=== PATIENT | female | born 1960 | race Caucasian/White ===

== ENCOUNTER → 2023-02-23 10:59 | Outpatient (BNVA) | payer MEDICARE, MEDICAID, SELFPAY | PROVIDERS: PCP Family Medicine; Visit Provider Internal Medicine Rheumatology | DX: M06.00 Rheumatoid arthritis without rheumatoid factor, unspecified site (principal); M54.50 Low back pain, unspecified; J70.4 Drug-induced interstitial lung disorders, unspecified; T45.1X5D Adverse effect of antineoplastic and immunosuppressive drugs, subsequent encounter; Z79.60 Long term (current) use of unspecified immunomodulators and immunosuppressants; Z11.59 Encounter for screening for other viral diseases; Z72.89 Other problems related to lifestyle | CPT/HCPCS: 36415; 72100; 80053; 85025; 85652; 86140; 86481; 86704; 86706; 86709; 86803; 87340; 99202 ==

== ENCOUNTER 2023-02-23 12:05 | Outpatient (REF) | payer MEDICARE, MEDICAID, SELFPAY ==
--- NOTE | ~2023-02-23 | XR_ITS ---
EXAMINATION: XR LUMBOSACRAL SPINE CLINICAL INFORMATION: Low back pain. COMPARISON: None available. TECHNIQUE: 3 views of the lumbosacral spine. FINDINGS: There are 5 non-rib bearing lumbar vertebrae. There is mild grade 1 spondylolisthesis L4-L5. There is facet arthropathy present L4-S1 bilaterally. Pedicles appear intact. There is some narrowing of the L5-S1 disc space. No acute fracture identified. There is a calcific density seen within the posterior soft tissues of the lower abdomen. Patient is status post bilateral hip arthroplasty. No evidence of fusion or widening of the sacroiliac joints. XR/XR lumbar spine 2-3V IMPRESSION: Degenerative disc disease L5-S1 with mild grade 1 spondylolisthesis L4-L5 and facet arthropathy L4-S1.
[2023-02-23 13:27] LABS: MANUAL DIFF FLAG NO
[2023-02-23 13:30] LABS: Basophils Absolute Auto 0.1 X10*3/uL (0.0-0.2); Basophils Percent Auto 1.4 % (0-2); Eosinophils Absolute Auto 0.6 X10*3/uL (0.0-0.4); Eosinophils Percent Auto 6.2 % (0-4); Hematocrit 39.7 % (37.0-47.0); Imm Gran Abs Auto 0.07 X10*3/uL (0.00-0.03); Imm Gran Pct Auto 0.7 % (0.0-0.4); Lymphocytes Absolute Auto 3.9 X10*3/uL (1.2-4.9); Lymphocytes Percent Auto 39.5 % (20-40); Mean Corpuscular HGB Conc 32.7 g/dl (31.0-35.0); Mean Corpuscular Hemoglobin 28.5 pg (27.0-33.0); Mean Corpuscular Volume 87.1 fL (80.0-98.0); Mean Platelet Volume 10.1 fL (9.4-12.3); Neutrophils Absolute Auto 4.2 x10*3/uL (2.0-8.3); Neutrophils Percent Auto 42.2 % (45-73); Platelet Count 250 X10*3/uL (160-400); Red Blood Count 4.56 X10*6/uL (4.20-5.50); Red Cell Distribution Width 15.2 % (11.0-16.0)
[2023-02-23 14:20] LABS: Erythrocyte Sedimentation Rate 48 MM/HR (0-20)
[2023-02-23 14:22] LABS: Alanine Aminotransferase 11 U/L (0-31); Albumin Level 3.8 g/dL (3.5-5.0); Alkaline Phosphatase 100 U/L (39-117); Anion Gap 15 (12-20); Aspartate Amino Transferase 13 U/L (5-31); Bilirubin Total 0.3 mg/dL (0.0-1.0); Blood Urea Nitrogen 24 mg/dL (9-16); C Reactive Protein 1.99 mg/dL (< or = 0.50); Calcium 9.5 mg/dL (8.4-10.2); Carbon Dioxide 25 mmol/L (22-29); Chloride 104 mmol/L (96-108); Estimated Glomerular Filt Rate 55; Glucose Random 86 mg/dL (60-115); Potassium 4.8 mmol/L (3.3-5.1); Sodium 139 mmol/L (135-145); Total Protein 6.7 g/dL (6.5-8.0)
[2023-02-24 04:08] LABS: HBS Num1 0.33 mIU/mL (0-7.99); HBsAGNum1 0.27 S/CO (0.00-0.99); Hepatitis A Antibody IgM 0.19 Index (0-0.79); Hepatitis B Core Antibody Nonreactive (Nonreactive); Hepatitis B Surface Antigen Negative (Negative); ~HepC Num1 0.14 S/CO (0.00-0.79); ~Hepatitis A Antibody IgM Nonreactive (Nonreactive); ~Hepatitis B Surface Antibody NONREACTIVE (Nonreactive); ~Hepatitis C Antibody Nonreactive (Nonreactive)
[2023-02-25 20:43] LABS: TS Negative Control Passed; TS Panel A 0; TS Panel B 0; TS Positive Control Passed; TSpotTB Negative (Negative)
== END 2023-02-23 12:06 | disposition home or self-care (01) ==
LOC: HO.10HDL 12:05
PROVIDERS: PCP Family Medicine; Visit Provider Internal Medicine Rheumatology
DX: Z13.89 Encounter for screening for other disorder (principal)
CPT/HCPCS: 36415; 72100; 80053; 85025; 85652; 86140; 86481; 86704; 86706; 86709; 86803; 87340

== ENCOUNTER 2023-05-24 10:45 | Outpatient (AMB) | payer MEDICARE, MEDICAID, SELFPAY ==
--- NOTE | 2023-05-24 10:45 | MHC.OFFVIS ---
Intake Intake Visit Reasons: RA Intake Note: Telehealth RA follow up. Pt states she wasn't able to get labs done, would like to get them done at [facility] in [place]. Cable Respooler Required: No Allergies adhesive tape Adverse Reaction (Unknown, Verified 05/24/23 10:50) Rash lactose Adverse Reaction (Unknown, Verified 05/24/23 10:50) Unknown Sulfa (Sulfonamide Antibiotics) Adverse Reaction (Unknown, Verified 05/24/23 10:50) Unknown Medication List - Last Reconciled 05/24/23 by Tung Vela MD diltiazem HCl 240 mg PO DAILY fluoxetine 80 mg PO DAILY gabapentin 300 mg PO QID hydrochlorothiazide 25 mg PO DAILY leflunomide 20 mg PO DAILY lorazepam 0.5 mg PO DAILY metoprolol succinate ER 12.5 mg PO DAILY omeprazole 20 mg PO BID PRN oxybutynin chloride 2 tablets in AM, 1 tablet in PM orally; tramadol 50 - 100 mg PO Q6H PRN HPI HPI Comments History of Present Illness Details The patient had called earlier today requesting a telephone visit for evaluation of her leflunomide treatment for seronegative rheumatoid arthritis. Her car is not functional so she could not make it here. She owes 5000 dollars for a new transmission so it is still at the dealer's. She did restart the leflunomide at 20 mg daily. She thinks this has improved somewhat her joint pains. She does not think there is more swelling or deformity than previously. She does report some exertional dyspnea. She does not think she had it earlier this year. She said she felt better when she was discharged from the hospital last summer after a presumed bout with methotrexate induced pneumonitis. Presently there has been no cough, fever or sputum production; the she has had no chest pain. She did check her pulse oximetry after getting her mail. She said she felt short of breath but did not have any chest pain. Oxygen saturation that she measured on her pulse oximeter was 96%. She also lost her primary care provider and has yet to get an appointment. 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 Multiple thyroid nodules Seronegative rheumatoid arthritis Sjogren's syndrome Surgical History H/O bilateral hip replacements History of total knee replacement (TKR) Status post fusion of wrist Family History Mother Alzheimer's dementia with mood disturbance Hypertension Breast cancer Father Hypertension Type 2 diabetes mellitus Stroke Myocardial infarction Kidney disease Brother Colon cancer Social History Alcohol intake: current Alcohol intake frequency: a few times a week Patient Tobacco Use Status: Former Tobacco user Review of Systems Const Details: Negative for appetite change, weight change, fever, chills, malaise and fatigue Card Details: Negative chest pain, edema and syncope Resp Details: Exertional dyspnea as noted above. Negative for SOB, cough and wheezing GI Details: Negative indigestion/heartburn, nausea, abdominal pain, bowel changes, diarrhea, constipation and bloody stool. Skin/Breast Details: Negative for itching, rash, hives, Raynaud's symptoms, sun sensitivity, and skin cancer Endo Details: Negative for polyuria and polydypsia Mega/Lymph Details: Negative for excessive bruising or bleeding. Physical Exam No exam today - this was a telephone visit ? Results Reviewed Results Reviewed: Laboratory Tests 02/23/23 02/23/23 02/23/23 12:14 12:14 12:14 WBC 10.0 Hgb 13.0 ESR 48 H Creatinine 1.02 AST 13 ALT 11 C-Reactive Protein 1.99 H Assessment & Plan Assessment & Plan (1) Long-term use of immunosuppressant medication: Code(s): Z79.60 - director long term care (current) use of unspecified immunomodulators and immunosuppressants (2) Dyspnea on exertion: Code(s): R06.09 - Other forms of dyspnea (3) Seronegative rheumatoid arthritis: Comment: Onset around 2005. started on methotrexate, hydroxychlooquine and eventually leflunomide added. Humira added early 2021, hydroxychloroquine stopped Hx bilateral TKR &THR [id number]/2022 hosp with resp failure, possible due to mtx, treated with IV and PO c orticosteroids. leflunomide restarted. 08/2022 Code(s): M06.00 - Rheumatoid arthritis without rheumatoid factor, unspecified site Plan The patient has longstanding rheumatoid arthritis. It sounds as if the patient had some symptomatic improvement in her joint pain after resuming the leflunomide. She also had increased her gabapentin up to 300 q.i.d. and that is helping. Of course this was a telephonic visit and I could not do a physical exam to assess her degree of synovitis. She needs lab work to monitor the leflunomide use. She cannot get to the office here so I did mail to her lab slips that she could have done at [facility]. I expressed to her the importance of following up on the lab work to make sure she is not running and to toxicity from the leflunomide. The cause of the exertional dyspnea is not clear. It would not make sense that it is from her bout with methotrexate pneumonitis since the PFTs and CT scan were reported as as having normalized. She could have some other interstitial lung disease, a cardiac issue, or more remotely some pulmonary reaction to the leflunomide. The normal exercise-induced oxygen saturation is somewhat reassuring but I think she needs to have further workup. She does not seem to be able to get to this hospital or return to the [place] [facility] for workup. I suggested she try to get an appointment at her primary doctor office in [place]. She may also need to pursue a transportation voucher the from [employer] through her primary doctor. If the pulmonary symptoms worsen she should present to the emergency room. She will try to work on transportation to her primary doctor office for further workup on the shortness of breath. We will plan to see her back here hopefully in 3 months. Today's time reviewing her chart and on the telephone totalled 18 minutes. Orders: Orders Alanine Aminotransferase Today M06.00 - Rheumatoid arthritis without rheumatoid factor, unspecified site, Z79.60 - [facility] (current) use of unspecified immunomodulators and immunosuppressants, Z79.899 - Other intermodal customer service (current) drug therapy Aspartate Amino Transferase Today M06.00 - Rheumatoid arthritis without rheumatoid factor, unspecified site, Z79.60 - [facility] (current) use of unspecified immunomodulators and immunosuppressants, Z79.899 - Other intermodal customer service (current) drug therapy Creatinine Today M06.00 - Rheumatoid arthritis without rheumatoid factor, unspecified site, Z79.60 - [facility] (current) use of unspecified immunomodulators and immunosuppressants, Z79.899 - Other skilled nursing (current) drug therapy C Reactive Protein Today M06.00 - Rheumatoid arthritis without rheumatoid factor, unspecified site, Z79.60 - director long term care (current) use of unspecified immunomodulators and immunosuppressants Complete Blood Count Auto Diff Today M06.00 - Rheumatoid arthritis without rheumatoid factor, unspecified site, Z79.60 - [facility] (current) use of unspecified immunomodulators and immunosuppressants, Z79.899 - Other intermodal customer service (current) drug therapy Erythrocyte Sedimentation Rate Today M06.00 - Rheumatoid arthritis without rheumatoid factor, unspecified site, Z79.60 - director long term care (current) use of unspecified immunomodulators and immunosuppressants Telehealth Telehealth Location of provider rendering services: practice address Location of patient: address on file Patient Identification confirmed using: Name, : Yes Telehealth method: voice only Patient verbally consented to treatment: Yes Patient verbally consented to billing insurance company: Yes Coding Level of Care Code Tele Est Pt Level 3 (09198) Diagnoses Long-term use of immunosuppressant medication Z79.60 Dyspnea on exertion R06.09 Seronegative rheumatoid arthritis M06.00
== END 2023-05-24 12:02 | disposition home or self-care (01) ==
LOC: HO.RHE 10:45
PROVIDERS: PCP Family Medicine; Visit Provider Internal Medicine Rheumatology
DX: M06.09 Rheumatoid arthritis without rheumatoid factor, multiple sites (principal); Z79.60 Long term (current) use of unspecified immunomodulators and immunosuppressants; R06.09 Other forms of dyspnea
CPT/HCPCS: 99442

== ENCOUNTER → 2023-05-24 10:45 | Outpatient (BNVA) | payer MEDICARE, MEDICAID, SELFPAY | PROVIDERS: PCP Family Medicine; Visit Provider Internal Medicine Rheumatology ==

== ENCOUNTER 2023-08-23 10:45 | Outpatient (AMB) | payer OTHER, MEDICAID, SELFPAY ==
[2023-08-23 10:53] VITALS: BP 132/84; PULSE 106; TEMP 36.8; O2SAT 96; BMI 41.5
--- NOTE | 2023-08-23 10:53 | MHC.OFFVIS ---
Intake Vital Signs 08/23/23 10:53 Height 5 ft 4 in Weight 241 lb 10.026 oz BMI 41.5 BP 132/84 Blood Pressure Location Lt brachial Position Sitting Pulse 106 H Pulse Source Pulse Oximeter Temp 98.2 F Temp Source Skin Pulse Oximetry (%) 96 Oxygen Delivery Method Room Air Intake Visit Reasons: RA Intake Note: Patient presents today to follow up on RA. c/o right hand numbness, throbbing, pain, difficulty making fist x couple months , [employer] Teacher Required: No Accompanied by: Self / Same As Patient Allergies adhesive tape Adverse Reaction (Unknown, Verified 08/23/23 10:55) Rash lactose Adverse Reaction (Unknown, Verified 08/23/23 10:55) Unknown Sulfa (Sulfonamide Antibiotics) Adverse Reaction (Unknown, Verified 08/23/23 10:55) Unknown Medication List - Last Reconciled 08/23/23 by Tung Vela MD diltiazem HCl 240 mg PO DAILY fluoxetine 80 mg PO DAILY gabapentin 300 mg PO QID hydrochlorothiazide 25 mg PO DAILY leflunomide 20 mg PO DAILY lorazepam 0.5 mg PO DAILY metoprolol succinate ER 12.5 mg PO DAILY omeprazole 20 mg PO BID PRN oxybutynin chloride 2 tablets in AM, 1 tablet in PM orally; tramadol 50 - 100 mg PO Q6H PRN HPI HPI Comments History of Present Illness Details The patient returns for evaluation of her rheumatoid arthritis. She remains on leflunomide 20 mg daily. However she had trouble with her automobile and it got stuck in the shop. For about 5 weeks she thought that the new prescription was in the car at the shop but it turns out it was not. In any case she missed about 5 weeks of leflunomide probably mostly in June. She has noted that the left wrist and hand have been more painful. There are persistent paresthesias in the fingers in the hand mostly in the 1st 3 fingers. There is also pain and weakness with movement of the thumb. She had no injury to this area. The right wrist has been fused a number of years ago and remains asymptomatic. Her hip and joint replacements in the hips and knees seem to be doing okay. The back is not bothering her as much as previously. She is taking occasional tramadol for the wrist pain as well as [id number] acetaminophen. She still admits to some feeling of being short of breath when she speaks but not some much when she is walking. The pulmonary doctor felt that she needed further neurologic evaluation. 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 Hypertension CKD (chronic kidney disease) Surgical History Status post fusion of wrist H/O bilateral hip replacements History of total knee replacement (TKR) Family History Mother Alzheimer's dementia with mood disturbance Hypertension Breast cancer Father Hypertension Type 2 diabetes mellitus Stroke Myocardial infarction Kidney disease Brother Colon cancer Social History Alcohol intake: current Alcohol intake frequency: a few times a week Patient Tobacco Use Status: Former Tobacco user Review of Systems Const Details: Negative for appetite change, weight change, fever, chills, malaise and fatigue Eyes Details: Negative for vision change, dry eyes,headaches and dizziness ENT Details: Negative for hearing change, tinnitus, oral ulcer, nose bleeds and oral dryness. Card Details: Negative chest pain, edema and syncope Resp Details: Negative for SOB, cough and wheezing GI Details: Negative indigestion/heartburn, nausea, abdominal pain, bowel changes, diarrhea, constipation and bloody stool. Skin/Breast Details: Negative for itching, rash, hives, Raynaud's symptoms, sun sensitivity, and skin cancer Neuro Details: Negative for epilepsy, palsy, stroke, changes in speech, tingling and weakness Mega/Lymph Details: Negative for excessive bruising or bleeding. Physical Exam Vital Signs: Last Vital Signs Temp 98.2 F 08/23/23 10:53 Pulse 106 H 08/23/23 10:53 BP 132/84 08/23/23 10:53 Pulse Ox 96 08/23/23 10:53 Oxygen Delivery Method Room Air 08/23/23 10:53 BMI result Body Mass Index 41.5 APPEARANCE: Patient in no acute distress EYES no redness, pupils equal and reactive to light, eyelids normal Cervical Spine:.? Full range of motion with mild discomfort at the extremes. No tenderness. Thoracic Spine:.? No scoliosis.? No tenderness on palpation. Lumbar Spine:.? Alignment normal.? Full range of motion with mild pain with extremes of flexion or hyperextension. Mild paraspinal muscle tenderness. Chest Wall:.? No tenderness, swelling, increased warmth or erythema. Hands: Right: There is mild soft tissue swelling of the 1st 3 MCP joints. The 2nd and 3rd have mild tenderness. There is bony enlargement and flexion deformity at the 5th PIP. She is unable to extend the distal phalanx. No DIP tenderness however. No thenar atrophy or sensory loss.? Left: Mild swelling of the 1st 3 and 5th MCP joint. The 2nd 3rd MCP have mild tenderness. There is [id number] tenderness at the base of the thumb. The CMC joint seems to be laterally displaced. There is no redness or warmth. She does have thenar atrophy and decreased sensation over the 2nd through 4th fingertips. Wrists: Right: There is a large anterior scar that seems to be well healed. This was from a wrist fusion and there is consequently no range of motion in the wrist. No tenderness or soft tissue swelling. There is some interosseous muscle wasting evident. Left: Mild pain with flexion or extension at 45 degrees with some soft tissue swelling and mild to moderate tenderness but no redness or warmth. There is some volar subluxation of the hand at the wrist. Elbows:. Normal pain-free range of motion without tenderness, swelling, increased warmth or erythema. Shoulders:.?? Full range of motion without pain. Slight anterior tenderness without weakness, swelling, increased warmth or erythema. Hips:.? Left: Slight buttock pain with extremes of flexion or external rotation. No groin pain with motion. Right: Full range of motion without pain. Hip bursa:.? No tenderness. Knees: Right: Range of motion seems pain-free. There may be some medial and lateral instability but there is no tenderness or swelling over the joint space or the scar anteriorly. Left: Normal anterior scar from her surgery.?? Normal pain-free range of motion without tenderness, swelling, increased warmth or erythema.? Ankles:.? Normal pain-free range of motion without tenderness, swelling, increased warmth or erythema. Feet:.? Right: There is some prominence, bony and soft tissue of the 5th MTP but it is not tender. There is some slightly tender bony enlargement over the instep without soft tissue swelling, redness or warmth. Other MTPs in the toes do not look to be tender or swollen. Left: Slight bony enlargement without tenderness at the 1st MTP. Other joints have normal pain-free range of motion without tenderness, swelling, increased warmth or erythema. Results Reviewed Results Reviewed: Laboratory results from [facility] reference labs: July 15: ALT 13 AST 15, creatinine 1.0, CRP 1.8, white count 9.3, hemoglobin 12.8, ESR 62 Assessment & Plan Assessment & Plan (1) Long-term use of immunosuppressant medication: Code(s): Z79.60 - group home (current) use of unspecified immunomodulators and immunosuppressants (2) Numbness of left hand: Code(s): R20.0 - Anesthesia of skin (3) Seronegative rheumatoid arthritis: Comment: Onset around 2005. started on methotrexate, hydroxychlooquine and eventually leflunomide added. Humira added early 2021, hydroxychloroquine stopped Hx bilateral TKR &THR [id number]/2022 hosp with resp failure, possible due to mtx, treated with IV and PO corticosteroids. leflunomide restarted. 08/2022 Code(s): M06.00 - Rheumatoid arthritis without rheumatoid factor, unspecified site Plan Longstanding rheumatoid arthritis with probably be very destructive disease in the left hand and wrist. I think that probably accounts for the pain there more so than just active synovitis. She has hand numbness likely related to median nerve entrapment because of the wrist synovitis and deformity. She does have a higher sed rate and CRP then we would hope for, perhaps this is because she had missed her leflunomide for about 5 weeks towards the end of the summer. She is back on it now and tolerates it. I think we need to investigate whether she might benefit from surgery on the left wrist and hand. To start that we will do x-rays and get some nerve conduction studies. She lives in [place]. I am not sure there is a hand surgeon in that are area so she probably would have to travel here to [place] or [place]. She will think about those options and we will get back to her with the results of the studies. She was recommended to have lab work again in October and I will see her around that time. Orders: Orders XR hand RT min 3V Today M06.00 - Rheumatoid arthritis without rheumatoid factor, unspecified site, Z79.60 - intermediate card tender (current) use of unspecified immunomodulators and immunosuppressants Erythrocyte Sedimentation Rate Today M06.00 - Rheumatoid arthritis without rheumatoid factor, unspecified site Complete Blood Count Auto Diff Today Z79.899 - Other extermination supervisor (current) drug therapy XR hand LT min 3V Today M06.00 - Rheumatoid arthritis without rheumatoid factor, unspecified site, Z79.60 - intermediate card tender (current) use of unspecified immunomodulators and immunosuppressants NE electromyogram (EMG) Today R20.0 - Anesthesia of skin, Z79.60 - group home (current) use of unspecified immunomodulators and immunosuppressants C Reactive Protein Today M06.00 - Rheumatoid arthritis without rheumatoid factor, unspecified site Alanine Aminotransferase Today Z79.899 - Other residential (current) drug therapy Aspartate Amino Transferase Today Z79.899 - Other extermination supervisor (current) drug therapy Creatinine Today Z79.899 - Other extermination supervisor (current) drug therapy Coding Level of Care Code Est Pt Level 4 (54205) Diagnoses Long-term use of immunosuppressant medication Z79.60 Numbness of left hand R20.0 Seronegative rheumatoid arthritis M06.00
== END 2023-08-23 11:38 | disposition home or self-care (01) ==
PROVIDERS: PCP Family Medicine; Visit Provider Internal Medicine Rheumatology
DX: Z79.60 Long term (current) use of unspecified immunomodulators and immunosuppressants (principal); R20.0 Anesthesia of skin; M06.00 Rheumatoid arthritis without rheumatoid factor, unspecified site
CPT/HCPCS: 99214

== ENCOUNTER 2023-08-23 10:45 | Outpatient (REF) | payer OTHER, SELFPAY ==
--- NOTE | ~2023-08-23 | XR_ITS ---
EXAMINATION: XR HAND, RIGHT CLINICAL INFORMATION: Long-term immunosuppressive therapy. COMPARISON: None available. TECHNIQUE: PA, lateral, and oblique views of the right hand. FINDINGS: There is bony demineralization. There is an ulnar minus variance, with foreshortening of the ulna. There is moderate arthritic change of the 3rd distal interphalangeal joint, with mild medial angulation of the distal phalanx. There is mild joint space narrowing of the 4th proximal and distal interphalangeal joints. There is moderate arthritic change of the 5th proximal interphalangeal joint, and there is mild narrowing of the 5th distal interphalangeal joint. There is an orthopedic fixator plate applied spanning the 3rd metacarpal bone and the distal radius. There are marked degenerative changes of the proximal and distal rows, with multi-focal collapses and fusions of the carpal bones. There is moderate arthritic change of the 1st carpometacarpal joint. No acute fracture or dislocation is seen. No focal soft tissue swelling, gas or foreign body is seen. XR/XR hand RT min 3V IMPRESSION: There are multi-focal severe arthritic changes of the right hand and wrist, as detailed. There has been a prior wrist fusion procedure, with intact fixator plate traversing the 3rd metacarpal shaft and distal radius. No acute fracture or dislocation is seen. There is a severe ulnar minus variance, with foreshortening of the ulna. EXAMINATION: XR HAND, LEFT CLINICAL INFORMATION: Long-term immunosuppressive therapy. COMPARISON: None available. TECHNIQUE: PA, lateral, and oblique views of the left hand. FINDINGS: As with the contralateral side, there is extensive arthritic change of the carpal bones, with multi-focal collapses and fusions, with the distal radial and ulnar styloid processes abutting the bases of the 1st and 5th metacarpal bones, respectively. No acute fracture or dislocation is seen. There is generalized narrowing of the joint spaces of the digits, and there is mild peripheral osteophyte formation of the 2nd distal interphalangeal joint. No focal soft tissue swelling, gas or foreign body is seen. IMPRESSION: There are extensive arthritic changes of the left wrist, with multi-focal osteonecrosis, collapses and fusions of the carpal bones. There are lesser arthritic changes of the fingers.
== END 2023-08-23 10:46 | disposition home or self-care (01) ==
LOC: HO.XRAY 10:45
PROVIDERS: PCP Family Medicine; Visit Provider Internal Medicine Rheumatology
DX: M06.00 Rheumatoid arthritis without rheumatoid factor, unspecified site (principal); Z79.60 Long term (current) use of unspecified immunomodulators and immunosuppressants
CPT/HCPCS: 73130; 99212

== ENCOUNTER 2023-09-22 13:21 | Outpatient (REF) | payer OTHER, SELFPAY ==
--- NOTE | 2023-09-22 13:25 | EMG_ITS ---
Chief complaint: History of RA, left hand numbness Reason for referral: Evaluate for Carpal Tunnel Syndrome Referred by: Dr. Vela Procedure done: Left upper extremity NCS/EMG Precautions and/or limitations: None The limb temperature was monitored continuously and remained between 32-36 degrees C during the performance of the NCS. Nerve Conduction Studies Anti Sensory Summary Table ?Stim Site NR Onset (ms) Norm Onset (ms) Peak (ms) Norm Peak (ms) O-P Amp (?V) Norm O-P Amp Site1 Site2 Delta-0 (ms) Dist (cm) Momo (m/s) Norm Momo (m/s) Left Median Anti Sensory (2nd Digit) Wrist NR <3.6 >10 Wrist 2nd Digit 14.0 Left Radial Anti Sensory (Thumb) Forearm ? 1.7 2.2 <3.1 21.0 Forearm Thumb 1.7 0.0 Left Ulnar Anti Sensory (5th Digit) Wrist ? 2.8 3.8 <3.7 11.4 >15.0 Wrist 5th Digit 2.8 14.0 50 Motor Summary Table ?Stim Site NR Onset (ms) Norm Onset (ms) O-P Amp (mV) Norm O-P Amp iAmp (mV) Amp (1st) (%) Site1 Site2 Delta-0 (ms) Dist (cm) Momo (m/s) Norm Momo (m/s) Left Median Motor (Abd Poll Brev) Wrist ? 5.9 <3.9 4.3 >4.5 5.2 100.0 Elbow Wrist 3.1 18.0 58 >45 Elbow ? 9.0 3.9 4.6 90.7 Left Ulnar Motor (Abd Dig Minimi) Wrist ? 3.0 <3.0 6.1 >5 8.5 100.0 B Elbow Wrist 2.7 15.5 57 >45 B Elbow ? 5.7 6.3 8.9 103.3 A Elbow B Elbow 1.6 10.0 63 >45 A Elbow ? 7.3 6.2 8.7 101.6 EMG ?Side Muscle Nerve Root Ins Act Fibs Psw Amp Dur Poly Recrt Int Pat Comment Left 1stDorInt Ulnar C8-T1 Nml Nml Nml Nml Nml 0 Nml Complete Left FlexCarRad Median C6-7 Nml Nml Nml Nml Nml 0 Nml Complete Left Biceps Musculocut C5-6 Nml Nml Nml Nml Nml 0 Nml Complete Left Triceps Radial C6-7-8 Nml Nml Nml Nml Nml 0 Nml Complete Left Deltoid Axillary C5-6 Nml Nml Nml Nml Nml 0 Nml Complete FINDINGS: Left median motor nerve showed prolonged distal latency, small amplitude and normal conduction velocity. Left median sensory nerve showed absent response. All other nerves tested were within normal. Concentric needle EMG was performed in selected muscles of the left upper extremity. Study did not reveal signs of electric abnormalities as shown in the table below. IMPRESSION: 1. This is an abnormal study. 2. There is electrodiagnostic evidence for left moderate-severe median neuropathy at the wrist, consistent with carpal tunnel syndrome. 3. There is no electrodiagnostic evidence for ulnar neuropathy, brachial plexopathy, or cervical radiculopathy. Thank you for your kind referral. Denisha Dorman MD, BLANCA Board Certified, [place] Board of Physical Medicine and Rehabilitation (ABPMR) Board Certified, [place] Board of Electrodiagnostic Medicine (ABEM) [place] [id number] [facility]
== END 2023-09-22 13:22 | disposition home or self-care (01) ==
LOC: HO.NEURO 13:21
PROVIDERS: PCP Family Medicine; Visit Provider Internal Medicine Rheumatology
DX: R20.0 Anesthesia of skin (principal); Z79.60 Long term (current) use of unspecified immunomodulators and immunosuppressants
CPT/HCPCS: 95886; 95909

== ENCOUNTER → 2023-09-22 13:25 | Outpatient (BNV) | payer OTHER, SELFPAY | PROVIDERS: PCP Family Medicine; Visit Provider Physical Medicine & Rehabilitation | DX: G56.12 Other lesions of median nerve, left upper limb (principal); G56.02 Carpal tunnel syndrome, left upper limb | CPT/HCPCS: 95886; 95909 ==

== ENCOUNTER 2023-10-26 10:00 | Outpatient (AMB) | payer OTHER, SELFPAY ==
--- NOTE | 2023-10-26 10:04 | A.OFFVIS_ITS ---
Intake Vital Signs 10/26/23 10:05 Height 5 ft 4 in Weight 243 lb 13.3 oz BMI 41.8 BP 124/86 Blood Pressure Location Lt brachial Position Sitting Pulse 107 H Pulse Source Pulse Oximeter Temp 97 F Temp Source Skin Pulse Oximetry (%) 95 Oxygen Delivery Method Room Air Intake Visit Reasons: ra Intake Note: Patient last seen 08/23/23, presents today for follow up and test results. [employer]r Required: No Accompanied by: Self / Same As Patient Allergies adhesive tape Adverse Reaction (Unknown, Verified 10/26/23 10:05) Rash lactose Adverse Reaction (Unknown, Verified 10/26/23 10:05) Unknown Sulfa (Sulfonamide Antibiotics) Adverse Reaction (Unknown, Verified 10/26/23 10:05) Unknown HPI HPI Comments History of Present Illness Details The patient returns today for evaluation of her rheumatoid arthritis. She remains on leflunomide 20 mg daily. She thinks that is doing okay with respect to her joint pains for the most part but she still gets pain in the left wrist, few MCPs in the right hand in his numbness in the left hand that comes and goes. She has some mild CKD so tends to avoid NSAIDs. She is taking up to 1 g t.i.d. of acetaminophen. Mostly this is for back pain and left wrist pain. She did have radiographic studies of the hands. This did document significant destructive disease in the left wrist. She has known carpal tunnel symptoms and positive EMG for the left hand as well. She is scheduled to see hand surgery in another week or two. She does not seem to have any shortness of breath or cough currently. She had a bout with pneumonitis last year that was thought to be possibly related to methotrexate. She tells me she is going to be evicted from her apartment as she has been told the place will be renovated. She is looking for alternative living places, perhaps in [facility] where her relatives are. She also is looking for an apartment on one level. Given her bilateral hip and knee replacements she tends to be unable to do more than a few steps on her stairs so she needs a single-level apartment welling. 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 Hypertension CKD (chronic kidney disease) Surgical History Status post fusion of wrist H/O bilateral hip replacements History of total knee replacement (TKR) Family History Mother Alzheimer's dementia with mood disturbance Hypertension Breast cancer Father Hypertension Type 2 diabetes mellitus Stroke Myocardial infarction Kidney disease Brother Colon cancer Social History Alcohol intake: current Alcohol intake frequency: a few times a week Patient Tobacco Use Status: Former Tobacco user Review of Systems Const Details: Negative for appetite change, weight change, fever, chills, malaise and fatigue Eyes Details: Negative for vision change, dry eyes,headaches and dizziness ENT Details: Negative for hearing change, tinnitus, oral ulcer, nose bleeds and oral dryness. Card Details: Negative chest pain, edema and syncope Resp Details: Negative for SOB, cough and wheezing GI Details: Negative indigestion/heartburn, nausea, abdominal pain, bowel changes, diarrhea, constipation and bloody stool. Endo Details: Negative for polyuria and polydypsia Mega/Lymph Details: Negative for excessive bruising or bleeding. Physical Exam Vital Signs: Last Vital Signs Temp 97 F 10/26/23 10:05 Pulse 107 H 10/26/23 10:05 BP 124/86 10/26/23 10:05 Pulse Ox 95 10/26/23 10:05 Oxygen Delivery Method Room Air 10/26/23 10:05 BMI result Body Mass Index 41.8 APPEARANCE: Patient in no acute distress EYES no redness, pupils equal and reactive to light, eyelids normal Cervical Spine:.? Full range of motion with mild discomfort at the extremes. No tenderness. Thoracic Spine:.? No scoliosis.? No tenderness on palpation. Lumbar Spine:.? Alignment normal.? Full range of motion with mild pain with extremes of flexion or hyperextension. Mild paraspinal muscle tenderness. Chest Wall:.? No tenderness, swelling, increased warmth or erythema. Hands: Right: There is mild soft tissue swelling of the 1st 3 MCP joints. The 2nd and 3rd have mild tenderness. There is bony enlargement and flexion deformity at the 5th PIP. She is unable to extend the distal phalanx. No DIP tenderness however. No thenar atrophy or sensory loss.? Left: Mild swelling of the 1st 3 and 5th MCP joint. The 2nd 3rd MCP have mild tenderness. There is [id number] tenderness at the base of the thumb. The CMC joint seems to be laterally displaced. There is no redness or warmth. She does have thenar atrophy and decreased sensation over the 2nd through 4th fingertips. Wrists: Right: There is a large anterior scar that seems to be well healed. This was from a wrist fusion and there is consequently no range of motion in the wrist. No tenderness or soft tissue swelling. There is some interosseous muscle wasting evident. Left: Mild pain with flexion or extension at 45 degrees with some soft tissue swelling and mild to moderate tenderness but no redness or warmth. There is some volar subluxation of the hand at the wrist. Elbows:. Normal pain-free range of motion without tenderness, swelling, increased warmth or erythema. Shoulders:.?? Full range of motion without pain. Slight anterior tenderness without weakness, swelling, increased warmth or erythema. Hips:.? Left: Slight buttock pain with extremes of flexion or external rotation. No groin pain with motion. Right: Full range of motion without pain. Hip bursa:.? No tenderness. Knees: Right: Range of motion seems pain-free. There may be some medial and lateral instability but there is no tenderness or swelling over the joint space or the scar anteriorly. Left: Normal anterior scar from her surgery.?? Normal pain-free range of motion without tenderness, swelling, increased warmth or erythema.? Ankles:.? Normal pain-free range of motion without tenderness, swelling, increased warmth or erythema. Feet:.? Right: There is some prominence, bony and soft tissue of the 5th MTP but it is not tender. There is some slightly tender bony enlargement over the instep without soft tissue swelling, redness or warmth. Other MTPs in the toes do not look to be tender or swollen. Left: Slight bony enlargement without tenderness at the 1st MTP. Other joints have normal pain-free range of motion without tenderness, swelling, increased warmth or erythema. ? Results Reviewed Results Reviewed: [address] [place] [id number] XRay Report Signed Patient: Sharad Al MR#: [id number] : 1960 Acct:[id number] Age/Sex: 62 / F ADM Date: 08/23/[address]: Tung Vela MD Ordering Physician: Tung Vela MD Date of Service: 08/23/23 Procedure(s): XR hand LT min 3V Accession Number(s): [id number] cc: ALYSE LOVE MD; Tung Vela MD~ EXAMINATION: XR HAND, RIGHT CLINICAL INFORMATION: Long-term immunosuppressive therapy. COMPARISON: None available. TECHNIQUE: PA, lateral, and oblique views of the right hand. FINDINGS: There is bony demineralization. There is an ulnar minus variance, with foreshortening of the ulna. There is moderate arthritic change of the 3rd distal interphalangeal joint, with mild medial angulation of the distal phalanx. There is mild joint space narrowing of the 4th proximal and distal interphalangeal joints. There is moderate arthritic change of the 5th proximal interphalangeal joint, and there is mild narrowing of the 5th distal interphalangeal joint. There is an orthopedic fixator plate applied spanning the 3rd metacarpal bone and the distal radius. There are marked degenerative changes of the proximal and distal rows, with multi-focal collapses and fusions of the carpal bones. There is moderate arthritic change of the 1st carpometacarpal joint. No acute fracture or dislocation is seen. No focal soft tissue swelling, gas or foreign body is seen. XR/XR hand LT min 3V IMPRESSION: There are multi-focal severe arthritic changes of the right hand and wrist, as detailed. There has been a prior wrist fusion procedure, with intact fixator plate traversing the 3rd metacarpal shaft and distal radius. No acute fracture or dislocation is seen. There is a severe ulnar minus variance, with foreshortening of the ulna. EXAMINATION: XR HAND, LEFT CLINICAL INFORMATION: Long-term immunosuppressive therapy. COMPARISON: None available. TECHNIQUE: PA, lateral, and oblique views of the left hand. FINDINGS: As with the contralateral side, there is extensive arthritic change of the carpal bones, with multi-focal collapses and fusions, with the distal radial and ulnar styloid processes abutting the bases of the 1st and 5th metacarpal bones, respectively. No acute fracture or dislocation is seen. There is generalized narrowing of the joint spaces of the digits, and there is mild peripheral osteophyte formation of the 2nd distal interphalangeal joint. No focal soft tissue swelling, gas or foreign body is seen. IMPRESSION: There are extensive arthritic changes of the left wrist, with multi-focal osteonecrosis, collapses and fusions of the carpal bones. There are lesser arthritic changes of the fingers. Dictated By: Donato Peña MD Signed By: <Electronically signed by Donato Peña MD in OV> October 22 lab work from [facility]: White count 8.3, hemoglobin 13, sed rate 35, creatinine 1.1, AST 16, ALT 14, CRP 1.4 Assessment & Plan Assessment & Plan (1) Long-term use of immunosuppressant medication: Code(s): Z79.60 - roasterman (current) use of unspecified immunomodulators and immunosuppressants (2) Carpal tunnel syndrome of left wrist: Comment: 09/2023 EMG/NCT showed moderate to severe left CTS Code(s): G56.02 - Carpal tunnel syndrome, left upper limb (3) CKD (chronic kidney disease): Code(s): N18.9 - Chronic kidney disease, unspecified (4) Seronegative rheumatoid arthritis: Comment: Onset around 2005. started on methotrexate, hydroxychlooquine and eventually leflunomide added. Humira added early 2021, hydroxychloroquine stopped Hx bilateral TKR &THR [id number]/2022 hosp with resp failure, possible due to mtx, treated with IV and PO corticosteroids. leflunomide restarted. 08/2022 Code(s): M06.00 - Rheumatoid arthritis without rheumatoid factor, unspecified site Plan Rheumatoid arthritis with still some pains in the hands and lower back. She seems to feel better taking the tramadol and it is not sedating so she will continue with as before from her primary doctor. The lab work looks good so I think she can safely continue the leflunomide. She awaits the surgical opinion on her hand. She has documented moderate to severe carpal tunnel in the left hand with some flexion deformity and much in the way of carpal bone destruction from previous RA visible on the x-ray. She will continue with the leflunomide as above and follow-up with surgery. We would see her back in 3-4 months with lab work before that visit. I gave her some lab slips to bring to [facility] lab which is convenient for her. She will need to work on getting housing that suitable for her level of disability. Coding Level of Care Code Est Pt Level 3 (29655) Diagnoses Long-term use of immunosuppressant medication Z79.60 Carpal tunnel syndrome of left wrist G56.02 CKD (chronic kidney disease) N18.9 Seronegative rheumatoid arthritis M06.00
[2023-10-26 10:05] VITALS: BP 124/86; PULSE 107; TEMP 36.1; O2SAT 95; BMI 41.8
== END 2023-10-26 10:50 | disposition home or self-care (01) ==
PROVIDERS: PCP Family Medicine; Visit Provider Internal Medicine Rheumatology
DX: Z79.60 Long term (current) use of unspecified immunomodulators and immunosuppressants (principal); G56.02 Carpal tunnel syndrome, left upper limb; N18.9 Chronic kidney disease, unspecified; M06.00 Rheumatoid arthritis without rheumatoid factor, unspecified site
CPT/HCPCS: 99213

== ENCOUNTER → 2023-10-26 10:00 | Outpatient (BNVA) | payer OTHER, SELFPAY | PROVIDERS: PCP Family Medicine; Visit Provider Internal Medicine Rheumatology | DX: M06.00 Rheumatoid arthritis without rheumatoid factor, unspecified site (principal); G56.02 Carpal tunnel syndrome, left upper limb; N18.9 Chronic kidney disease, unspecified; Z79.60 Long term (current) use of unspecified immunomodulators and immunosuppressants | CPT/HCPCS: 99212 ==

== ENCOUNTER 2023-11-03 09:55 | Outpatient (AMB) | payer OTHER, SELFPAY ==
[2023-11-03 10:15] VITALS: BMI 41.7
--- NOTE | 2023-11-03 10:15 | MHC.OFFVIS ---
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 States she has had CTS for about 4 -5 months. States it has worsen since. Patient has a Velcro wrist splint that she uses when driving. Patient reports weakness in hand. EMG doen with Dr. Salazar. Patient would like to discuss surgical intervention. 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 She complains of numbness & weakness in the left thumb, index, and middle fingers of her left hand. She says this has been present intermittently for ~4-5 months now, though it is becoming more constant. Her symptoms are also worse with activities such as driving and at night. She says she drives with a velcro wrist splint on, which gives her some relief. She also says her fingers feel cold at times which she finds bothersome. She also has difficulty making a closed fist and gripping objects. She has some concerns about her housing situation. She has to move out by 12/31/23 but does not have a new place lined up at this time. She says that because of her disability she cannot be kicked out of her home, and she is not sure how she is going to be able to find housing. She therefore thinks that it is likely that her actual move will likely be further down the road time solitario. She has a hx of RA and CKD, and is on immunosuppressants. She follows with Rheumatology for this. She has a hx of a right wrist arthrodesis in 2013 due to her RA, and she has a left wrist deformity. She wants to know if anything can be done surgically to correct her wrist deformity. She has a hx of bilateral GWYN & TKA. 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 Hypertension CKD (chronic kidney disease) Surgical History Status post fusion of wrist H/O bilateral hip replacements History of total knee replacement (TKR) Family History Mother Alzheimer's dementia with mood disturbance Hypertension Breast cancer Father Hypertension Type 2 diabetes mellitus Stroke Myocardial infarction Kidney disease Brother Colon cancer Social History Alcohol intake: current Alcohol intake frequency: a few times a week Patient Tobacco Use Status: Former Tobacco user Review of Systems Const All systems reviewed & are unremarkable except as noted in HPI and below Physical Exam Vital Signs: BMI result Body Mass Index 41.7 Const General: cooperative, healthy appearing and no acute distress Orientation/consciousness: patient oriented x3 HEENT Head: Yes normocephalic and Yes atraumatic Eyes EOM: EOMs intact bilaterally Resp Effort & Inspection: normal respiratory effort and able to speak in complete sentences Cardio Jugular venous distension: no JVD Skin General skin exam: turgor normal Rashes: no rashes Neuro General: patient oriented x3 Extrem Other: Evaluation of Left Upper Extremity: The patient is alert, oriented, and in no acute distress Neuro: She has decreased subjective sensation to the median nerve distribution of her left hand. She has more normal sensation to the small finger. Comparatively, she feels like she has normal sensation to the fingers of the right hand. Vascular: Cap refill brisk ROM: She can make a weak fist and extend all her digits No locking or catching She can oppose the thumb to the tips of her digits Skin: No lacerations or abrasions. General: No Ecchymosis. No Erythema or evidence of infection. Regarding the left wrist she has the visible deformity with volar subluxation of the carpus on the forearm. However she has pretty good range of motion in the left wrist with perhaps 60 degrees of flexion and 30 degrees of extension that does not appear to be particularly painful. The wrist is not particularly swollen or warm. Is important to note that she has a right wrist arthrodesis, obviously with no flexion or extension at that wrist. Right wrist radiographs from 08/23/2023: Reviewed by me today in clinic: She appears to have had a right wrist arthrodesis with a dorsal locking plate extending to the 3rd metacarpal. The MCP joints of the 4 fingers appear to be well preserved. The PIP joints and D IP joints appear to be in relatively good condition except for perhaps evidence of an old fracture at the PIP joint of the small finger and classic arthritic changes in the middle finger D IP joint. There also appears to be some basal joint involvement as well. Left hand radiographs from 08/23/2023: Reviewed by me today in clinic: She appears to have significant involvement of the left wrist by rheumatoid arthritis with collapse of the carpus and some volar subluxation of the carpus on the distal radius. The MCP joints and the IP joints of the fingers and thumb appear to be relatively well preserved. Nerve Conduction Study Left-side only IMPRESSION: 1. This is an abnormal study. 2. There is electrodiagnostic evidence for left moderate-severe median neuropathy at the wrist, consistent with carpal tunnel syndrome. 3. There is no electrodiagnostic evidence for ulnar neuropathy, brachial plexopathy, or cervical radiculopathy. Thank you for your kind referral. Denisha Dorman MD, BLANCA 09/22/23 Psych Appearance: grossly normal Affect: normal affect Attitude: cooperative Assessment & Plan Assessment & Plan (1) Carpal tunnel syndrome of left wrist: Comment: 09/2023 EMG/NCT showed moderate to severe left CTS Code(s): G56.02 - Carpal tunnel syndrome, left upper limb (2) Seronegative rheumatoid arthritis: Comment: Onset around 2005. started on methotrexate, hydroxychlooquine and eventually leflunomide added. Humira added early 2021, hydroxychloroquine stopped Hx bilateral TKR &THR [id number]/2022 hosp with resp failure, possible due to mtx, treated with IV and PO corticosteroids. leflunomide restarted. 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 Left Carpal tunnel syndrome, moderate-severe Symptoms intermittent, but daily, worse at night In a patient with rheumatoid arthritis I educated her about this condition I discussed operative and non-operative treatment options The patient would like to proceed with surgery The risks and benefits of operative treatment were discussed with the patient and the patient wishes to proceed with surgery. These risks include, but are not limited to risk of damage to blood vessels, nerves, tendons, infection, recurrence, incomplete relief of preoperative symptoms, persistent pain, possible need for further surgery and the risks associated with regional blocks and anesthesia. The plan is to take the patient to the operating room sometime in the next few months for the following procedures: 1. Left carpal tunnel release, under general 2. Possible left flexor tenosynovectomy All of the preoperative paperwork including the consent was filled out today. All the patient's questions were answered. The patient understands that they will be contacted by our plasma specialist soon to schedule this procedure. She is supposed to move on 12/31/23 and is unsure when she would like to have surgery. I made her aware that she will not be able to do any packing or heavy lifting for at least 4 and up to 8 weeks post-operatively She denies Diabetes, blood thinners, asthma, heart, lung issues. She has RA and CKD, and currently takes Leflunomide. She follows with Dr. Vela in Rheumatology for this and denies any current immunosuppressant use. She will need pre-op medical clearance and to find out if she needs to stop any RA medication prior to surgery. 2. Left wrist Rheumatoid arthritis I discussed operative and non-operative treatment options with her. I think it would be good to try to avoid a second wrist arthrodesis as that becomes pretty hard to maintain good self-care and hygiene. She said she was told that by the surgeon who did her right wrist arthrodesis. If her wrist is not terribly symptomatic, even though she has a deformity, I would consider leaving it alone or managing non-operatively with activity modification or possible injections. total wrist arthroplasty, that's something that I don't personally do, but I encourage her again talk to somebody at [facility]. They may or may not recommend that surgery, given her current rest of formality, and that the risk is if it fails, then she's gonna end up with a second wrist arthrodesis. Scribed for Marian Bingham MD by Og Bangura, outside medical sales representative, on 11/03/23 at 10:40 AM, EST. Coding Level of Care Code New Pt Level 4 (36317) Diagnoses Carpal tunnel syndrome of left wrist G56.02 Seronegative rheumatoid arthritis M06.00 CKD (chronic kidney disease) N18.9 Deformity of left wrist due to rheumatoid arthritis M21.932; M06.9
== END 2023-11-03 11:01 | disposition home or self-care (01) ==
PROVIDERS: PCP Family Medicine; Visit Provider Orthopaedic Surgery
DX: G56.02 Carpal tunnel syndrome, left upper limb (principal); M21.932 Unspecified acquired deformity of left forearm; M06.00 Rheumatoid arthritis without rheumatoid factor, unspecified site; N18.9 Chronic kidney disease, unspecified; M06.9 Rheumatoid arthritis, unspecified
CPT/HCPCS: 99204

== ENCOUNTER → 2023-11-03 09:55 | Outpatient (BNVA) | payer OTHER, SELFPAY | PROVIDERS: PCP Family Medicine; Visit Provider Orthopaedic Surgery | DX: G56.02 Carpal tunnel syndrome, left upper limb (principal); M06.00 Rheumatoid arthritis without rheumatoid factor, unspecified site; N18.9 Chronic kidney disease, unspecified; M21.932 Unspecified acquired deformity of left forearm; M06.9 Rheumatoid arthritis, unspecified | CPT/HCPCS: 99202 ==

== ENCOUNTER 2024-01-11 10:25 | Outpatient (AMB) | payer OTHER, SELFPAY ==
--- NOTE | 2024-01-11 10:31 | MHC.OFFVIS ---
Intake Vital Signs 01/11/24 10:40 Height 5 ft 4 in Weight 248 lb 10.903 oz BMI 42.7 BP 128/86 Blood Pressure Location Rt brachial Position Sitting Pulse 105 H Pulse Source Pulse Oximeter Temp 97.2 F Temp Source Skin Pulse Oximetry (%) 98 Oxygen Delivery Method Room Air Intake Visit Reasons: ra with medication specialist Intake Note: Patient last seen 10/26/[address] Vela, presents today for follow up and test results. Reports upcoming Left CTS sx, c/o right wrst/hand pain, palpable lump. Collections Rep Required: No Accompanied by: Self / Same As Patient Allergies adhesive tape Adverse Reaction (Unknown, Verified 01/11/24 10:31) Rash lactose Adverse Reaction (Unknown, Verified 01/11/24 10:31) Unknown Sulfa (Sulfonamide Antibiotics) Adverse Reaction (Unknown, Verified 01/11/24 10:31) Unknown HPI HPI Comments History of Present Illness Details Ms. Orourke 63yoRachel returns today for follow-up of her rheumatoid arthritis. She remains on leflunomide 20 mg daily. She thinks that is doing okay with respect to her joint pains for the most part but she still gets pain in the left wrist, few MCPs in the right hand in his numbness in the left hand that comes and goes. She has some mild CKD so tends to avoid NSAIDs. She is taking up to 1 g t.i.d. of acetaminophen. Mostly this is for back pain and left wrist pain. She did have radiographic studies of the hands. This did document significant destructive disease in the left wrist. She has known carpal tunnel symptoms and positive EMG for the left hand as well and is scheduled for surgery 01/13/24. The stress of needing to relocate is causing her to overeat and gain weight. History: She had a bout with pneumonitis last 2021 that was thought to be possibly related to methotrexate. She tells me she is going to be evicted from her apartment as she has been told the place will be renovated. She is looking for alternative living places, perhaps in [facility] where her relatives are. She also is looking for an apartment on one level. Given her bilateral hip and knee replacements she tends to be unable to do more than a few steps on her stairs so she needs a single-level apartment [place]. [facility] Medical History (Updated 01/11/24 @ 11:54 [facility] Screening examination for infectious disease Multiple thyroid nodules Sjogren's syndrome Seronegative rheumatoid arthritis 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 Hypertension CKD (chronic kidney disease) Surgical History Status post fusion of wrist H/O bilateral hip replacements History of total knee replacement (TKR) Family History Mother Alzheimer's dementia with mood disturbance Hypertension Breast cancer Father Hypertension Type 2 diabetes mellitus Stroke Myocardial infarction Kidney disease Brother Colon cancer Social History Alcohol intake: current Alcohol intake frequency: a few times a week Patient Tobacco Use Status: Former Tobacco user Physical Exam Vital Signs: Last Vital Signs Temp 97.2 F 01/11/24 10:40 Pulse 105 H 01/11/24 10:40 BP 128/86 01/11/24 10:40 Pulse Ox 98 01/11/24 10:40 Oxygen Delivery Method Room Air 01/11/24 10:40 BMI result Body Mass Index 42.7 APPEARANCE: Patient in no acute distress EYES no redness, pupils equal and reactive to light, eyelids normal Cervical Spine:.? Full range of motion with mild discomfort at the extremes. No tenderness. Thoracic Spine:.? No scoliosis.? No tenderness on palpation. Lumbar Spine:.? Alignment normal.? Full range of motion with mild pain with extremes of flexion or hyperextension. Mild paraspinal muscle tenderness. Chest Wall:.? No tenderness, swelling, increased warmth or erythema. Hands: Right: There is mild soft tissue swelling of the 1st 3 MCP joints. The 2nd and 3rd have mild tenderness. There is bony enlargement and flexion deformity at the 5th PIP. She is unable to extend the distal phalanx. No DIP tenderness however. No thenar atrophy or sensory loss.? Left: Mild swelling of the 1st 3 and 5th MCP joint. The 2nd 3rd MCP have mild tenderness. There is [id number] tenderness at the base of the thumb. The CMC joint seems to be laterally displaced. There is no redness or warmth. She does have thenar atrophy and decreased sensation over the 2nd through 4th fingertips. Wrists: Right: There is a large anterior scar that seems to be well healed. This was from a wrist fusion and there is consequently no range of motion in the wrist. No tenderness or soft tissue swelling. There is some interosseous muscle wasting evident. Left: Mild pain with flexion or extension at 45 degrees with some soft tissue swelling and mild to moderate tenderness but no redness or warmth. There is some volar subluxation of the hand at the wrist. Elbows:. Normal pain-free range of motion without tenderness, swelling, increased warmth or erythema. Shoulders:.?? Full range of motion without pain. Slight anterior tenderness without weakness, swelling, increased warmth or erythema. Hips:.? Left: Slight buttock pain with extremes of flexion or external rotation. No groin pain with motion. Right: Full range of motion without pain. Hip bursa:.? No tenderness. Knees: Right: Range of motion seems pain-free. There may be some medial and lateral instability but there is no tenderness or swelling over the joint space or the scar anteriorly. Left: Normal anterior scar from her surgery.?? Normal pain-free range of motion without tenderness, swelling, increased warmth or erythema.? Ankles:.? Normal pain-free range of motion without tenderness, swelling, increased warmth or erythema. Feet:.? Right: There is some prominence, bony and soft tissue of the 5th MTP but it is not tender. There is some slightly tender bony enlargement over the instep without soft tissue swelling, redness or warmth. Other MTPs in the toes do not look to be tender or swollen. Left: Slight bony enlargement without tenderness at the 1st MTP. Other joints have normal pain-free range of motion without tenderness, swelling, increased warmth or erythema. ? Assessment & Plan Assessment & Plan (1) Long-term use of immunosuppressant medication: Code(s): Z79.60 - group home (current) use of unspecified immunomodulators and immunosuppressants (2) Carpal tunnel syndrome of left wrist: Comment: 09/2023 EMG/NCT showed moderate to severe left CTS Code(s): G56.02 - Carpal tunnel syndrome, left upper limb (3) CKD (chronic kidney disease): Code(s): N18.9 - Chronic kidney disease, unspecified Qualifiers: Chronic kidney disease stage: unspecified stage Qualified Code(s): N18.9 - Chronic kidney disease, unspecified (4) Seronegative rheumatoid arthritis: Comment: Onset around 2005. started on methotrexate, hydroxychlooquine and eventually leflunomide added. Humira added early 2021, hydroxychloroquine stopped. Humira stopped 06/2022. Hx bilateral TKR &THR [id number]/2022 hosp with resp failure, possible due to mtx, treated with IV and PO corticosteroids. leflunomide restarted. 08/2022 Code(s): M06.00 - Rheumatoid arthritis without rheumatoid factor, unspecified site Plan #SeroNegRA/Assisted Use:Ms. Orourke has rheumatoid arthritis with still some pains in the hands and lower back. She seems to feel better taking the tramadol and it is not sedating so she will continueiven this and the hand pain and swelling of the MCP joints, I think she needs more coverage for better management. After her surgery we will consider to add another medication such as HUMIRA or Enbrel. CTS: Surgery January 13, 2024. She has documented moderate to severe carpal tunnel in the left hand with some flexion deformity and much in the way of carpal bone destruction from previous RA visible on the x-ray. F/U in 3-4 months with lab work before that visit. I gave her some lab slips to bring to [facility] lab which is convenient for her. She will need to work on getting housing that suitable for her level of disability. Orders: Orders Complete Blood Count Auto Diff Today M06.00 - Rheumatoid arthritis without rheumatoid factor, unspecified site, Z79.60 - group home (current) use of unspecified immunomodulators and immunosuppressants Erythrocyte Sedimentation Rate Today M06.00 - Rheumatoid arthritis without rheumatoid factor, unspecified site, Z79.60 - group home (current) use of unspecified immunomodulators and immunosuppressants Hepatitis A,B,C Profile Today Z11.9 - Encounter for screening for infectious and parasitic diseases, unspecified Comprehensive Met. Panel Today M06.00 - Rheumatoid arthritis without rheumatoid factor, unspecified site, Z79.60 - ocean transportation intermedi[employer] (current) use of unspecified immunomodulators and immunosuppressants C Reactive Protein Today M06.00 - Rheumatoid arthritis without rheumatoid factor, unspecified site, Z79.60 - group home (current) use of unspecified immunomodulators and immunosuppressants T Spot TB Today Z11.9 - Encounter for screening for infectious and parasitic diseases, unspecified Coding Level of Care Code Est Pt Level 3 (55079) Diagnoses Long-term use of immunosuppressant medication Z79.60 Carpal tunnel syndrome of left wrist G56.02 Chronic kidney disease, unspecified CKD stage N18.9 Chronic kidney disease stage: unspecified stage Seronegative rheumatoid arthritis M06.00
[2024-01-11 10:40] VITALS: BP 128/86; PULSE 105; TEMP 36.2; O2SAT 98; BMI 42.7
== END 2024-01-11 11:09 | disposition home or self-care (01) ==
PROVIDERS: PCP Family Medicine; Visit Provider Nurse Practitioner Family
DX: Z79.60 Long term (current) use of unspecified immunomodulators and immunosuppressants (principal); G56.02 Carpal tunnel syndrome, left upper limb; N18.9 Chronic kidney disease, unspecified; M06.00 Rheumatoid arthritis without rheumatoid factor, unspecified site
CPT/HCPCS: 99213

== ENCOUNTER → 2024-01-11 10:25 | Outpatient (BNVA) | payer OTHER, SELFPAY | PROVIDERS: PCP Family Medicine; Visit Provider Nurse Practitioner Family | DX: M06.00 Rheumatoid arthritis without rheumatoid factor, unspecified site (principal); G56.02 Carpal tunnel syndrome, left upper limb; N18.9 Chronic kidney disease, unspecified; Z79.60 Long term (current) use of unspecified immunomodulators and immunosuppressants | CPT/HCPCS: 99212 ==

== ENCOUNTER 2024-01-13 06:00 | Day surgery (SDC) | payer OTHER, SELFPAY ==
[2024-01-11 07:34] VITALS: BMI 41.7
[2024-01-13] VITALS (9 sets, daily range): BP systolic 134–165; BP diastolic 71–92; PULSE 68–90; RESP 14–18; TEMP 36.1–36.8; O2SAT 94–98; BMI 42.5
[2024-01-13] MEDS: Lactated Ringers 1,000 ML 80 ML IVCONT (06:41)
--- NOTE | 2024-01-13 07:36 | P.CONAN_ITS ---
HPI - Anesthesia Eval Consult details Narrative: for CTS release [facility] Active Problems Active Problems: All Active Problems (Updated 01/11/24 @ 11:54 by [facility] Screening examination for infectious disease (Acute) Deformity of left wrist due to rheumatoid arthritis (Acute) Carpal tunnel syndrome of left wrist (Acute) Dyspnea on exertion (Acute) Long-term use of immunosuppressant medication (Acute) Low back pain (Acute) Irritable bladder (Acute) Multiple thyroid nodules (Acute) Seronegative rheumatoid arthritis (Acute) Methotrexate-induced pneumonitis (Acute) CKD (chronic kidney disease) (Acute) Past Medical History Medical History Screening examination for infectious disease Multiple thyroid nodules Sjogren's syndrome Seronegative rheumatoid arthritis 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 Hypertension CKD (chronic kidney disease) Family History Family History Mother Alzheimer's dementia with mood disturbance Hypertension Breast cancer Father Hypertension Type 2 diabetes mellitus Stroke Myocardial infarction Kidney disease Brother Colon cancer Family history of problems with anesthesia: No Surgical History Surgical History Status post fusion of wrist H/O bilateral hip replacements History of total knee replacement (TKR) History of Problems with Anesthesia: No Social History Social History Alcohol intake: current Alcohol intake frequency: holidays/special occasions only Patient Tobacco Use Status: Former Tobacco user Second Hand Smoke Exposure: No Use of substances other than those prescribed or required for medical reasons: Yes Substance Use Frequency: Occasionally Are you DNR?: No Advance Directives: No Advance Directives Information Provided: Yes Advance Directives on File: No Meds Allergies Allergy/AdvReac Type Severity Reaction Status Date / Time adhesive tape AdvReac Unknown Rash Verified 01/11/24 10:31 lactose AdvReac Unknown Unknown Verified 01/11/24 10:31 Sulfa (Sulfonamide AdvReac Unknown Unknown Verified 01/11/24 10:31 Antibiotics) Active Medications: Current Medications Lactated Ringer's (Lr) 1,000 mls @ 80 mls/hr IVCONT .[id number] BAR Last Admin: 01/13/24 06:41 Dose: 80 mls/hr Home Medications Medication Instructions Recorded Confirmed Last Taken Type diltiazem HCl 240 mg 240 mg PO DAILY 02/18/23 01/13/24 01/12/24 History capsule,extended release 24 hr fluoxetine 40 mg capsule 80 mg PO DAILY 02/18/23 01/13/24 01/12/24 History hydrochlorothiazide 25 mg tablet 25 mg PO DAILY 02/18/23 01/13/24 01/13/24 History lorazepam 0.5 mg tablet 0.5 mg PO DAILY 02/18/23 01/13/24 01/12/24 History metoprolol succinate 25 mg 12.5 mg PO DAILY 02/18/23 01/13/24 01/13/24 History tablet,extended release 24 hr omeprazole 20 mg capsule,delayed 20 mg PO BID PRN Acid Reflux 02/18/23 01/13/24 01/12/24 History release oxybutynin chloride 5 mg tablet See Rx Instructions PO .COMPLEX 02/18/23 01/13/24 01/12/24 History tramadol 50 mg tablet 50 - 100 mg PO Q6H PRN Pain 02/18/23 01/13/24 01/13/24 History Exam Height,Weight and Vital Signs: Height 5 ft 4 in Weight 112.207 kg Last Vital Signs Temp 98.3 F 01/13/24 06:39 Pulse 71 01/13/24 06:39 Resp 16 01/13/24 06:39 BP 134/80 01/13/24 06:39 Pulse Ox 98 01/13/24 06:39 O2 Del Method Room Air 01/13/24 06:39 Airway Mallampati Class: III TM Dist: <=3cm Neck ROM: Limited Heart: rrr Lungs: cta Assessment and Plan Assessment Anesthesia Assessment: Anesthesia Plan Discussed and Chart Reviewed Final Anesthetic Review Family History of Problems with Anesthesia: No History of Problems with Anesthesia: No NPO: Yes ASA Class: III Final Preanesthetic Review: No Changes in Pt Med Stat, Meds/Allgs Chart Reviewed, Consent Obtained/Reviewed and Anes Risks/Benef Reviewed Patient Risk: Low Procedure Risk: Low Anesthetic Plan Anesthetic Plan: GA Disposition: Standard PACU
--- NOTE | 2024-01-13 07:39 | MHC.SHP ---
Pre-Procedural Eval Section A - 24 Hr Update-Section A only Date of Service: 01/13/24 The patient is an INPATIENT: No Changes since office visit: No Cold of Flu in the past 2 weeks, No New Medical Problems, No Changes in Medication and No Patient answered all questions The patient has been examined within 24 hours of the surgical procedure. The History & Physical has been completed within 30 days and I have reviewed it.: Yes Section B - Complete if H&P > 30 days Chief Complaint: Carpal tunnel syndrome, left upper limb Allergies: Allergies Allergy/AdvReac Type Severity Reaction Status Date / Time adhesive tape AdvReac Unknown Rash Verified 01/11/24 10:31 lactose AdvReac Unknown Unknown Verified 01/11/24 10:31 Sulfa (Sulfonamide AdvReac Unknown Unknown Verified 01/11/24 10:31 Antibiotics) Plan I have reviewed the history and physical and performed a pertinent physical examination on my patient. No changes have occurred unless specified. Time Spent With Patient Time: Total time managing care of this patient today ____ minutes.
--- NOTE | 2024-01-13 07:39 | W.PM.OPN ---
Operative Note Operative Note Date of Service: 01/13/24 Narrative: Operative Note Narrative: Preop diagnosis: 1. Left carpal tunnel syndrome 2. RA related flexor tenosynovitis Postop diagnosis: Same Procedure: 1. Left carpal tunnel release 2. Left wrist flexor tenosynovectomy Surgeon: Marian Bingham MD Anesthesia: General Anesthesia Findings: Abundant hypertrophic tenosynovium about the finger flexor tendons in the distal forearm and the carpal tunnel. Hyperemia seen in the median nerve. Implants: None Tourniquet time: 40 minutes EBL: 5.0 ml Specimen: Tenosynovium for histopathology Drains: None Complications: None Disposition: Brought to the recovery room in stable condition Plan: Follow-up in 10-14 days for wound check, suture removal and to check pathology I encouraged the patient to again talk to her health advocate about the use of biologic medications for better control of her rheumatoid arthritis. Indications: The patient is a 63 year old woman with left carpal tunnel syndrome and rheumatoid arthritis . The risks and benefits of operative treatment, including but not limited to risk of damage to blood vessels, nerves, tendons, infection, recurrence, persistent pain or numbness, incomplete resolution of preoperative symptoms, or need for further surgery were discussed with the patient and they wished to proceed with surgery. Procedure: Once consent was obtained patient was brought back to the operating suite and placed in the operating table in a supine position. Perioperative antibiotics and anesthesia was administered by the anesthesia team. A tourniquet was applied to the proximal aspect of the left upper extremity and the limb was prepped and draped in a standard surgical fashion. The limb was elevated exsanguinated with Esmarch bandage and the tourniquet inflated to 250 mm of mercury for a total tourniquet time of 40 minutes. I made a longitudinal incision extending across the carpal tunnel and then proximally along the distal volar forearm in a zigzag fashion. Incision was made through the skin to the subcutaneous tissues using a 15. Blade. I then incised through the longitudinally oriented palmar fascia down to the transverse carpal ligament. More proximally I dissected down to the level of the volar forearm fascia using tenotomy scissors. I made a longitudinal incision releasing the transverse carpal ligament 1st using a 15. Blade then using tenotomy scissors under direct visualization. This was then extended proximally to include the distal aspect of the volar forearm fascia. The median nerve was identified and found to be hyperemic where it had passed beneath the transverse carpal ligament. I then turned my attention to the flexor tendons. There was abundant hypertrophic tenosynovium, roberts in color, eveloping most of the finger flexor tendons in the distal forearm and as they pass into the carpal tunnel. I then performed a tenosynovectomy, carefully dissecting the hypertrophic tenosynovium from about the flexor tendons while protecting the median nerve. The abundant tenosynovium was removed from the patient placed on the back table and sent for histopathology. The tenosynovium was noted to be invading several of the flexor tendons, and then also connecting some tendons with other tendons, likely independent finger flexion activities difficult. At this point the tourniquet was deflated and hemostasis obtained with a brief period of local pressure and bipolar electrocautery. The wound was copiously irrigated with normal saline. The skin edges were reapproximated with 5-0 nylon suture. The wound was infiltrated with some 0.5% plain ropivacaine for postop pain control and a sterile dressing was applied. The patient appears to have tolerated the procedure well and with no complications. All digits were well vascularized conclusion of the case.
== END 2024-01-13 11:18 | disposition home or self-care (01) ==
PROVIDERS: PCP Family Medicine; Visit Provider Orthopaedic Surgery
PROC: (CPT 25115; principal; 2024-01-13 07:30)
PROC: (CPT 64721; 2024-01-13 07:30)
DX: G56.02 Carpal tunnel syndrome, left upper limb (principal); G56.12 Other lesions of median nerve, left upper limb; M65.832 Other synovitis and tenosynovitis, left forearm; M06.00 Rheumatoid arthritis without rheumatoid factor, unspecified site; M21.932 Unspecified acquired deformity of left forearm; R20.0 Anesthesia of skin; R20.2 Paresthesia of skin; I12.9 Hypertensive chronic kidney disease with stage 1 through stage 4 chronic kidney disease, or unspecified chronic kidney disease; N18.9 Chronic kidney disease, unspecified; F33.0 Major depressive disorder, recurrent, mild; Z98.1 Arthrodesis status; L23.1 Allergic contact dermatitis due to adhesives; Z88.2 Allergy status to sulfonamides; Z87.891 Personal history of nicotine dependence; Z98.890 Other specified postprocedural states
CPT/HCPCS: 25115; 64721; 88304; 88305; J0131; J0690; J1100; J1885; J2250; J2405; J2704; J2795; J3010

== ENCOUNTER → 2024-01-13 06:00 | Outpatient (BNV) | payer OTHER, SELFPAY | PROVIDERS: PCP Family Medicine; Visit Provider Orthopaedic Surgery | DX: G56.02 Carpal tunnel syndrome, left upper limb (principal); M65.132 Other infective (teno)synovitis, left wrist | CPT/HCPCS: 64721 ==

== ENCOUNTER 2024-01-14 10:32 | Outpatient (AMB) | payer OTHER, SELFPAY ==
--- NOTE | 2024-01-14 10:47 | A.OFFVIS_ITS ---
Intake Intake Visit Reasons: PO Lt CTR 01/13/24 AR Intake Note: Sharad vazquez 63 year old female presents today for a dressing change s/p left CTR on 01/13/24. Patient reports she removed bandage, stating she was confused after surgery with outpatient instructions. Allergies adhesive tape Adverse Reaction (Unknown, Verified 01/14/24 11:44) Rash lactose Adverse Reaction (Unknown, Verified 01/14/24 11:44) Unknown Sulfa (Sulfonamide Antibiotics) Adverse Reaction (Unknown, Verified 01/14/24 11:44) Unknown HPI PO Lt CTR 01/13/24 AR HPI Details 63-year-old female who returns to the [facility] today for a dressing change s/p left CTR, 01/13/[address] Bingham. She reports she removed the bandage, stating she was confused after surgery with outpatient instructions. She is doing well overall and has no other concerns today. COUNTS INCLUDE 234 BEDS AT THE [facility] Medical History Screening examination for infectious disease Multiple thyroid nodules Sjogren's syndrome Seronegative rheumatoid arthritis 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 Hypertension CKD (chronic kidney disease) Surgical History Status post fusion of wrist H/O bilateral hip replacements History of total knee replacement (TKR) Family History Mother Alzheimer's dementia with mood disturbance Hypertension Breast cancer Father Hypertension Type 2 diabetes mellitus Stroke Myocardial infarction Kidney disease Brother Colon cancer Social History Alcohol intake: current Alcohol intake frequency: holidays/special occasions only Patient Tobacco Use Status: Former Tobacco user Second Hand Smoke Exposure: No Review of Systems Const All systems reviewed & are unremarkable except as noted in HPI and below Physical Exam Extrem Other: Left wrist: Incision clean, dry and intact. No erythema, mild bruising. Sensation is intact. Assessment & Plan Assessment & Plan (1) Carpal tunnel syndrome of left wrist: Comment: 09/2023 EMG/NCT showed moderate to severe left CTS Code(s): G56.02 - Carpal tunnel syndrome, left upper limb Plan Incision was redressed which she will keep on for 4 days, at which point she will perform dry dressing changes daily. She will avoid submerging her hand underwater and see me back for her routine post-op appointment on 01/26/24, sooner if needed. Patient Instructions: Scribed for Matt Sykes PA-C, by Vitor Lew medical transcriptionist, on 01/14/2024 at 10:45 AM EST. I, Matt Sykes PA-C, have personally reviewed and agree with the information entered by the scribe. Coding Level of Care Code Global (71023) Diagnoses Carpal tunnel syndrome of left wrist G56.02
== END 2024-01-14 12:17 | disposition home or self-care (01) ==
PROVIDERS: PCP Family Medicine; Visit Provider Physician Assistant
DX: G56.02 Carpal tunnel syndrome, left upper limb (principal)
CPT/HCPCS: 99024

== ENCOUNTER → 2024-01-14 10:32 | Outpatient (BNVA) | payer OTHER, SELFPAY | PROVIDERS: PCP Family Medicine; Visit Provider Physician Assistant | DX: Z48.811 Encounter for surgical aftercare following surgery on the nervous system (principal) | CPT/HCPCS: 99212 ==

== ENCOUNTER 2024-01-26 12:09 | Outpatient (AMB) | payer OTHER, SELFPAY ==
--- NOTE | 2024-01-26 12:19 | A.OFFVIS_ITS ---
Intake Intake Visit Reasons: PO Lt CTR 01/13/24 AR Intake Note: Sharad 63 yr old female presents today for her PO visit for her left CTR 01/13/[address] Bingham. States CTS have improved and is doing well. Sutures removed in office and steri strips applied. Allergies adhesive tape Adverse Reaction (Unknown, Verified 01/26/24 12:19) Rash lactose Adverse Reaction (Unknown, Verified 01/26/24 12:19) Unknown Sulfa (Sulfonamide Antibiotics) Adverse Reaction (Unknown, Verified 01/26/24 12:19) Unknown HPI PO Lt CTR 01/13/24 AR HPI Details Sharad is a 62 year old right hand dominant woman who returns S/P left carpal tunnel release & flexor tenosynovectomy, DOS: 01/13/24 She says she is doing well and her sensation is improving. She still has some numbness in her fingertips, and some difficulty with grasping small objects. She says she has difficulty adjusting her strength at times still. She denies any pain and is happy with the results of her surgery. She has a hx of RA and CKD. She follows with Rheumatology for this, and says she is in discussion to return to taking Biologic medications sometime in the next few months. She has a hx of a right wrist arthrodesis in 2013 due to her RA, and she has a left wrist deformity. She wants to know if anything can be done surgically to correct her wrist deformity. 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 Hypertension CKD (chronic kidney disease) Surgical History Status post fusion of wrist H/O bilateral hip replacements History of total knee replacement (TKR) Family History Mother Alzheimer's dementia with mood disturbance Hypertension Breast cancer Father Hypertension Type 2 diabetes mellitus Stroke Myocardial infarction Kidney disease Brother Colon cancer Social History Alcohol intake: current Alcohol intake frequency: holidays/special occasions only Patient Tobacco Use Status: Former Tobacco user Second Hand Smoke Exposure: No Review of Systems Const All systems reviewed & are unremarkable except as noted in HPI and below Physical Exam Const General: no acute distress and alert Orientation/consciousness: patient oriented x3 Neuro General: patient oriented x3 Extrem Other: The patient was alert oriented and in no acute distress The incision is healing well with no erythema drainage or evidence of infection. Sutures removed and Steri-Strips applied She can make a fist and extend all her digits No locking or catching Sensation is improving but not yet normal in the median nerve distribution Cap refill is brisk Operative findings 01/13/24 Abundant hypertrophic tenosynovium about the finger flexor tendons in the distal forearm and the carpal tunnel. Hyperemia seen in the median nerve. Pathology report 01/13/24 Diagnosis Soft tissue, left wrist, excision: Marked tenosynovitis with fibrinoid necrosis; negative for malignancy. Comment: A focally prominent plasma cell component to the inflammation is present, consistent with the patient's known autoimmune disease Nerve Conduction Study Left-side only IMPRESSION: 1. This is an abnormal study. 2. There is electrodiagnostic evidence for left moderate-severe median neuropathy at the wrist, consistent with carpal tunnel syndrome. 3. There is no electrodiagnostic evidence for ulnar neuropathy, brachial plexopathy, or cervical radiculopathy. . Denisha Dorman MD, BLANCA 09/22/23 Psych Appearance: grossly normal Affect: normal affect Attitude: cooperative Assessment & Plan Assessment & Plan (1) Carpal tunnel syndrome of left wrist: Comment: 09/2023 EMG/NCT showed moderate to severe left CTS Code(s): G56.02 - Carpal tunnel syndrome, left upper limb (2) Seronegative rheumatoid arthritis: Comment: Onset around 2005. started on methotrexate, hydroxychlooquine and eventually leflunomide added. Humira added early 2021, hydroxychloroquine stopped. Humira stopped 06/2022. Hx bilateral TKR &THR [id number]/2022 hosp with resp failure, possible due to mtx, treated with IV and PO corticosteroids. leflunomide restarted. 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 Left Carpal tunnel syndrome, S/P release and flexor tenosynovectomy DOS: 01/13/24 Pre-operatively with Dense numbness Now with improvement in sensation but not yet normal sensation In a patient with rheumatoid arthritis The patient appears to be doing well post-operatively I educated her about the post-operative course. i explained that it can take up to 9 months for her sensation to continue to improve. I discussed activity modifications, she is to lift nothing heavier than a cellphone for the next two weeks She will perform gentle ROM exercises at home She should avoid any underwater activities for the next 5 days She should gently massage about the incision site to reduce the risk of hypersen sitivity She is in discussion about returning to taking a biologic medication to manage her RA, but says this will not be for several weeks to months She can follow up prn 2. Left wrist Rheumatoid arthritis I think it would be good to try to avoid a second wrist arthrodesis as that becomes pretty hard to maintain good self-care and hygiene. She said she was told that by the surgeon who did her right wrist arthrodesis. If her wrist is not terribly symptomatic, even though she has a deformity, I would consider leaving it alone or managing non-operatively with activity modification or possible injections. Regarding a left total wrist arthroplasty, if her symptoms considerably worsened that she was considering the surgery, I would likely refer her to a surgeon who performs this procedure regularly. At present she is not interested in further surgery for her left wrist. Scribed for Marian Bingham MD by Og Bangura senior medical director, on 01/26/24 at 12:45 PM, EST. 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
== END 2024-01-26 12:51 | disposition home or self-care (01) ==
PROVIDERS: PCP Family Medicine; Visit Provider Orthopaedic Surgery
DX: G56.02 Carpal tunnel syndrome, left upper limb (principal); M06.00 Rheumatoid arthritis without rheumatoid factor, unspecified site; N18.9 Chronic kidney disease, unspecified; M21.932 Unspecified acquired deformity of left forearm; M06.9 Rheumatoid arthritis, unspecified
CPT/HCPCS: 99024

== ENCOUNTER → 2024-01-26 12:09 | Outpatient (BNVA) | payer OTHER, SELFPAY | PROVIDERS: PCP Family Medicine; Visit Provider Orthopaedic Surgery | DX: Z09 Encounter for follow-up examination after completed treatment for conditions other than malignant neoplasm (principal); M21.932 Unspecified acquired deformity of left forearm; M06.00 Rheumatoid arthritis without rheumatoid factor, unspecified site; Z86.69 Personal history of other diseases of the nervous system and sense organs | CPT/HCPCS: 99212 ==

== ENCOUNTER 2024-06-01 09:45 | Outpatient (AMB) | payer OTHER, SELFPAY ==
--- NOTE | 2024-06-01 09:47 | MHC.OFFVIS ---
Vital Signs 06/01/24 09:49 Height 5 ft 3 in Weight 261 lb 14.546 oz BMI 46.4 BP 134/82 Blood Pressure Location Rt brachial Position Sitting Respiration 18 Pulse 68 Pulse Source Pulse Oximeter Pulse Oximetry (%) 94 Oxygen Delivery Method Room Air Intake Visit Reasons: RA/CTS Left Intake Note: Patient presents for RA. Allergies adhesive tape Adverse Reaction (Unknown, Verified 06/01/24 09:50) Rash lactose Adverse Reaction (Unknown, Verified 06/01/24 09:50) Unknown Sulfa (Sulfonamide Antibiotics) Adverse Reaction (Unknown, Verified 06/01/24 09:50) Unknown Medication List - Last Reconciled 06/01/24 by Marco Antonio Valles MD diltiazem HCl CD 240 mg PO DAILY fluoxetine 80 mg PO DAILY gabapentin 300 mg PO QID hydrochlorothiazide 25 mg PO DAILY leflunomide 20 mg PO DAILY lorazepam 0.5 mg PO DAILY metoprolol succinate ER 12.5 mg PO DAILY omeprazole 20 mg PO BID PRN oxybutynin chloride 2 tablets in AM, 1 tablet in PM orally; tramadol 50 - 100 mg PO Q6H PRN HPI Comments Details: This is a 63-year-old female with negative deforming RA who presents for follow-up. She is s/p left carpal tunnel release 12/[address] Bingham. She states that she has been having right elbow pain that travels down her right forearm. She also has noticed triggering of her left ring finger. 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 Hypertension CKD (chronic kidney disease) Surgical History History of carpal tunnel surgery Status post fusion of wrist H/O bilateral hip replacements History of total knee replacement (TKR) Family History Mother Alzheimer's dementia with mood disturbance Hypertension Breast cancer Father Hypertension Type 2 diabetes mellitus Stroke Myocardial infarction Kidney disease Brother Colon cancer Sister Lymphoma Social History Alcohol intake: current Alcohol intake frequency: holidays/special occasions only Patient Tobacco Use Status: Former Tobacco user Second Hand Smoke Exposure: No Review of Systems Musc Reports arthralgias, Reports radiating pain into limb and Reports stiffness Physical Exam Vital Signs: Last Vital Signs Pulse 68 06/01/24 09:49 Resp 18 06/01/24 09:49 BP 134/82 06/01/24 09:49 Pulse Ox 94 06/01/24 09:49 Oxygen Delivery Method Room Air 06/01/24 09:49 BMI result Body Mass Index 46.4 Const General: cooperative, healthy appearing and comfortable Nutritional Appearance: obese morbidly obese Orientation/consciousness: patient oriented x3 Limitations: ambulation with cane HEENT Head: Yes normocephalic and Yes atraumatic Mouth: moist mucous membranes Resp Effort & Inspection: normal respiratory effort and able to speak in complete sentences Auscultation: clear to auscultation bilaterally Cardio Rate: regular rate Skin General skin exam: no rashes or lesions noted Neuro General: patient oriented x3 Extrem Other: Hands: Right: There is mild soft tissue swelling of the 1st 3 MCP joints. First MCP is tender There is bony enlargement and flexion deformity at the 5th PIP. She is unable to extend the distal phalanx. No DIP tenderness however. No thenar atrophy or sensory loss.? Left: Mild soft tissue swelling of left 2nd MCP without tenderness. Triggering of left index and ring fingers Wrists: Right: There is a large anterior scar that seems to be well healed. This was from a wrist fusion and there is consequently no range of motion in the wrist. No tenderness or soft tissue swelling. There is some interosseous muscle wasting evident. Left: Mild pain with flexion or extension at 45 degrees with some soft tissue swelling and mild to moderate tenderness but no redness or warmth. There is some volar subluxation of the hand at the wrist. Tenderness at the common extensor origin at the right lateral epicondyle Assessment & Plan Assessment & Plan (1) Seronegative rheumatoid arthritis: Comment: Onset around 2005. started on methotrexate, hydroxychlooquine and eventually leflunomide added. Humira added early 2021, hydroxychloroquine stopped. Humira stopped 06/2022. Hx bilateral TKR &THR [id number]/2022 hosp with resp failure, possible due to mtx , treated with IV and PO corticosteroids. leflunomide restarted. 08/2022 Code(s): M06.00 - Rheumatoid arthritis without rheumatoid factor, unspecified site Category: Medical Plan: This is a 63-year-old female with seronegative erosive RA who presents for follow-up. This is her 1st visit with me. She remains on leflunomide 20 mg daily. On exam today she only has few tender joints. Symptoms are likely degenerative in nature. Continue leflunomide 20 mg daily She mentions history of Sjogren's. I will request further serologies I will request most recent labs. 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 Advised patient to wear a Band-Aid at night at the PIP joint. Consider buying finger splints If no improvement, advised patient to call the office and we can schedule her for an injection (5) Right tennis elbow: Code(s): M77.11 - Lateral epicondylitis, right elbow Category: Medical Plan: Referred to OT. If no improvement, advised patient to call our office and we can schedule for an injection Plan I spent 46 minutes reviewing patient's chart, evaluating patient, ordering diagnostic workup, counseling patient and documenting in the chart Orders: Orders Complete Blood Count Auto Diff 4 Months M32.9 - Systemic lupus erythematosus, unspecified Comprehensive Met. Panel 4 Months M32.9 - Systemic lupus erythematosus, unspecified Erythrocyte Sedimentation Rate 4 Months M32.9 - Systemic lupus erythematosus, unspecified Hepatitis A,B,C Profile 4 Months Z11.59 - Encounter for screening for other viral diseases Anti DNA DS Antibody 4 Months M32.9 - Systemic lupus erythematosus, unspecified DNA Double Stranded-Crithidia 4 Months M32.9 - Systemic lupus erythematosus, unspecified OT Evaluation and Treatment Today M65.342 - Trigger finger, left ring finger, M77.11 - Lateral epicondylitis, right elbow C Reactive Protein 4 Months M32.9 - Systemic lupus erythematosus, unspecified T Spot TB 4 Months Z11.7 - Encounter for testing for latent tuberculosis infection STEFANIA Reflex Titer and Pattern 4 Months M32.9 - Systemic lupus erythematosus, unspecified Anti Extractable Nuclear Ag 4 Months M32.9 - Systemic lupus erythematosus, unspecified Complement C3 4 Months M32.9 - Systemic lupus erythematosus, unspecified Complement C4 4 Months M32.9 - Systemic lupus erythematosus, unspecified Protein Creatinine Ratio, Ur 4 Months M32.9 - Systemic lupus erythematosus, unspecified Sjogren's Antibodies 4 Months M32.9 - Systemic lupus erythematosus, unspecified UA w Microscopic 4 Months M32.9 - Systemic lupus erythematosus, unspecified Coding Level of Care Code Est Pt Level 5 (23489) Diagnoses Seronegative rheumatoid arthritis M06.00 Chronic kidney disease, unspecified CKD stage N18.9 Chronic kidney disease stage: unspecified stage Long-term use of immunosuppressant medication Z79.60 Trigger finger, left ring finger M65.342 Right tennis elbow M77.11
[2024-06-01 09:49] VITALS: BP 134/82; PULSE 68; RESP 18; O2SAT 94; BMI 46.4
== END 2024-06-01 10:15 | disposition home or self-care (01) ==
PROVIDERS: PCP Family Medicine; Visit Provider Student in an Organized Health Care Education/Training Program
DX: M06.09 Rheumatoid arthritis without rheumatoid factor, multiple sites (principal); N18.9 Chronic kidney disease, unspecified; Z79.60 Long term (current) use of unspecified immunomodulators and immunosuppressants; M65.342 Trigger finger, left ring finger; M77.11 Lateral epicondylitis, right elbow
CPT/HCPCS: 99215

== ENCOUNTER → 2024-06-01 09:45 | Outpatient (BNVA) | payer OTHER, SELFPAY | PROVIDERS: PCP Family Medicine; Visit Provider Student in an Organized Health Care Education/Training Program | DX: M06.00 Rheumatoid arthritis without rheumatoid factor, unspecified site (principal); N18.9 Chronic kidney disease, unspecified; M65.342 Trigger finger, left ring finger; M77.11 Lateral epicondylitis, right elbow; M32.9 Systemic lupus erythematosus, unspecified; Z79.60 Long term (current) use of unspecified immunomodulators and immunosuppressants | CPT/HCPCS: 99212 ==

== ENCOUNTER 2024-10-02 10:26 | Outpatient (AMB) | payer OTHER, SELFPAY ==
--- NOTE | 2024-10-02 10:33 | A.OFFVIS_ITS ---
Vital Signs 10/02/24 10:37 Height 5 ft 3 in Weight 246 lb 0.574 oz BMI 43.6 BP 130/92 H Blood Pressure Location Rt brachial Position Sitting Respiration 18 Pulse 107 H Pulse Source Pulse Oximeter Pulse Oximetry (%) 97 Oxygen Delivery Method Room Air Intake Visit Reasons: RA/CM Intake Note: Patient presents for RA. Allergies adhesive tape Adverse Reaction (Unknown, Verified 10/02/24 10:36) Rash lactose Adverse Reaction (Unknown, Verified 10/02/24 10:36) Unknown Sulfa (Sulfonamide Antibiotics) Adverse Reaction (Unknown, Verified 10/02/24 10:36) Unknown Medication List - Last Reconciled 10/02/24 by Marco Antonio Valles MD [arm brace 16 brace Wear nightly and as much as possible throughout the day] diltiazem HCl CD 240 mg PO DAILY finger splint wear nightly & as much as possible throughout the day fluoxetine 80 mg PO DAILY gabapentin 300 mg PO QID hydrochlorothiazide 25 mg PO DAILY leflunomide 20 mg PO DAILY lorazepam 0.5 mg PO DAILY metoprolol succinate ER 12.5 mg PO DAILY omeprazole 20 mg PO BID PRN oxybutynin chloride 2 tablets in AM, 1 tablet in PM orally; tramadol 50 - 100 mg PO Q6H PRN HPI Comments Details: This is a 63-year-old female with sero negative deforming RA who presents for follow-up. She states that she feels about the same overall. She has noticed some prominence the bone in her right elbow. It was not particularly painful. She has no complaints today. [facility] Medical History Screening examination for infectious disease Multiple thyroid nodules Sjogren's syndrome Seronegative rheumatoid arthritis 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 Hypertension CKD (chronic kidney disease) Surgical History History of carpal tunnel surgery Status post fusion of wrist H/O bilateral hip replacements History of total knee replacement (TKR) Family History Mother Alzheimer's dementia with mood disturbance Hypertension Breast cancer Father Hypertension Type 2 diabetes mellitus Stroke Myocardial infarction Kidney disease Brother Colon cancer Sister Lymphoma Social History Alcohol intake: current Alcohol intake frequency: holidays/special occasions only Patient Tobacco Use Status: Former Tobacco user Second Hand Smoke Exposure: No Review of Systems Musc Reports deformity and Denies arthralgias Physical Exam Vital Signs: Last Vital Signs Pulse 107 H 10/02/24 10:37 Resp 18 10/02/24 10:37 BP 130/92 H 10/02/24 10:37 Pulse Ox 97 10/02/24 10:37 Oxygen Delivery Method Room Air 10/02/24 10:37 BMI result Body Mass Index 43.6 Const General: cooperative, healthy appearing and comfortable Nutritional Appearance: obese morbidly obese Orientation/consciousness: patient oriented x3 Limitations: ambulation with cane HEENT Head: Yes normocephalic and Yes atraumatic Mouth: moist mucous membranes Resp Effort & Inspection: normal respiratory effort and able to speak in complete sentences Cardio Rate: regular rate Skin General skin exam: no rashes or lesions noted Neuro General: patient oriented x3 Extrem Other: Hands: Right: There is mild soft tissue swelling of the 1st 3 MCP joints. First MCP is tender There is bony enlargement and flexion deformity at the 5th PIP. She is unable to extend the distal phalanx. No DIP tenderness however. No thenar atrophy or sensory loss.? Left: Mild soft tissue swelling of left 2nd MCP without tenderness. Triggering of left index and ring fingers Wrists: Right: There is a large anterior scar that seems to be well healed. This was from a wrist fusion and there is consequently no range of motion in the wrist. No tenderness or soft tissue swelling. There is some interosseous muscle wasting evident. Left: Mild pain with flexion or extension at 45 degrees with some soft tissue swelling and mild to moderate tenderness but no redness or warmth. There is some volar subluxation of the hand at the wrist. Tenderness at the common extensor origin at the right lateral epicondyle Assessment & Plan Assessment & Plan (1) Seronegative rheumatoid arthritis: Comment: Onset around 2005. started on methotrexate, hydroxychlooquine and eventually leflunomide added. Humira added early 2021, hydroxychloroquine stopped. Humira stopped 06/2022. Hx bilateral TKR &THR [id number]/2022 hosp with resp failure, possible due to mtx , treated with IV and PO corticosteroids. leflunomide restarted. 08/2022 Code(s): M06.00 - Rheumatoid arthritis without rheumatoid factor, unspecified site Category: Medical Plan: This is a 63-year-old female with seronegative erosive RA who presents for follow-up. She remains on leflunomide 20 mg daily. There is no active synovitis today. Continue leflunomide 20 mg daily She mentions history of Sjogren's. Labs were done last week. 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 Panel 4 Months M06.00 - Rheumatoid arthritis without rheumatoid factor, unspecified site C Reactive Protein 4 Months M06.00 - Rheumatoid arthritis without rheumatoid factor, unspecified site Coding Level of Care Code Est Pt Level 4 (83556) Complex EM visit Add On G2211 Diagnoses Seronegative rheumatoid arthritis M06.00 Chronic kidney disease, unspecified CKD stage N18.9 Chronic kidney disease stage: unspecified stage Long-term use of immunosuppressant medication Z79.60
[2024-10-02 10:37] VITALS: BP 130/92; PULSE 107; RESP 18; O2SAT 97; BMI 43.6
== END 2024-10-02 11:00 | disposition home or self-care (01) ==
PROVIDERS: PCP Family Medicine; Visit Provider Student in an Organized Health Care Education/Training Program
DX: M06.00 Rheumatoid arthritis without rheumatoid factor, unspecified site (principal); N18.9 Chronic kidney disease, unspecified; Z79.60 Long term (current) use of unspecified immunomodulators and immunosuppressants
CPT/HCPCS: 99214; G2211

== ENCOUNTER → 2024-10-02 10:26 | Outpatient (BNVA) | payer OTHER, SELFPAY | PROVIDERS: PCP Family Medicine; Visit Provider Student in an Organized Health Care Education/Training Program | DX: M06.00 Rheumatoid arthritis without rheumatoid factor, unspecified site (principal); N18.9 Chronic kidney disease, unspecified; Z79.60 Long term (current) use of unspecified immunomodulators and immunosuppressants | CPT/HCPCS: 99212 ==

== ENCOUNTER 2025-01-30 09:44 | Outpatient (REF) | payer OTHER, SELFPAY ==
--- OUTSIDE RECORDS SUMMARY | 2025-01-30 11:11 | XMS_ITS | Clinical Summary ---
Author Organization [facility] Address [address] [id number] Care Team Providers Care Pre Sales Network Engineer Name Role Phone Brock Shaw DO Primary Care Provider [phone] Allergies Active Allergy Reactions Criticality Noted Date Comments Adhesive Tape-Silicones Itching 03/20/2024 Lactose Unknown 08/27/2021 Other Unknown 08/27/2021 Sulfa drugs Sulfa (Sulfonamide Antibiotics) Unknown 12/2022 Wound Dressings Unknown 08/27/2021 Medications dilTIAZem CD (CARDIZEM CD) 240 mg 24 hr capsule Take 240 mg by mouth once a day. 03/03/2024 Active FLUoxetine (PROzac) 40 mg capsule Take 80 mg by mouth once a day. Active gabapentin (NEURONTIN) 300 mg capsule Take 300 mg by mouth daily. Active hydroCHLOROthia zide (HYDRODIURIL) 25 mg tablet Take 25 mg by mouth once a day. Active leflunomide (ARAVA) 20 mg tablet Take 20 mg by mouth once a day. Active LORazepam (ATIVAN) 0.5 mg tablet Take 0.5 mg by mouth every 6 hours as needed. Active metoprolol succinate XL (TOPROL XL) 25 mg tablet Take 12.5 mg by mouth once a day. Active omeprazole (PriLOSEC) 20 mg capsule Take 20 mg by mouth once a day. 09/23/2023 Active oxybutynin (DITROPAN) 5 mg tablet Take 5 mg by mouth 2 times daily. Active traMADoL (ULTRAM) 50 mg tablet Take 50 mg by mouth every 6 hours as needed. Active melatonin 3 mg tablet Take 10 mg by mouth nightly as needed for sleep. Active Active Problems No known active problems Family History Relation Name Status Comments Father Mother Social History Tobacco Use Types Packs/Day Years Used Date Smoking Tobacco: Former Cigarettes 1.5 9 1 984 - 1992 Smokeless Tobacco: Never Alcohol Use Standard Drinks/Week Comments Yes 0 (1 standard drink = 0.6 oz pure alcohol) sometimes, once every 6 weeks or so Comments Unknown Sex and Gender Information Value Date Recorded Sex Assigned at Not on file Legal Sex Female 5:30 AM EDT Gender Identity Not on file Sexual Orientation Not on file Last Filed Vital Signs Vital Sign Reading Time Taken Comments Blood Pressure 130/95 03/20/2024 1:20 PM EDT Pulse 114 03/20/2024 1:20 PM EDT Temperature 36.7 ??C (98.1 ??F) 03/20/2024 1:12 PM ED T Respiratory Rate 16 03/20/2024 1:12 PM EDT Oxygen Saturation - - Inhaled Oxygen Concentration - - Weight 110.2 kg (243 lb) 03/20/2024 1:12 PM EDT Height 162.6 cm (5' 4 ) 03/20/2024 1:12 PM EDT Body Mass Index 41.71 03/20/2024 1:12 PM EDT Plan of Treatment Health Maintenance Due Date Last Done Comments Cologuard 1959 Colon Cancer Screening 1959 Colonoscopy 1959 FOBT / Fit Test 1959 HIV Screening 1959 HPV and Pap Smear 1959 Hepatitis C Screening 1959 Sigmoidoscopy 1959 Mammogram 1999 Osteoporosis Screening 2009 Zoster Vaccines (3 of 3) 01/10/2021 021, 11/15/2020, 09/05/2020 COVID-19 Vaccine ( season) 2024 10/06/2023, 08/18/2022, 04/22/2022, Additional history exists Influenza Vaccine (#1) 2024 , 08/18/2022, 07/29/2021, Additional history exists Alcohol/Substance Use Screening 11/01/2024 Depression Screening and Follow-Up 11/01/2024 Health Care Proxy Review 11/01/2024 Social Drivers of Health Annual Screening 11/01/2024 Cervical Cancer Screening 02/01/2026 Pap Smear 02/01/2026 02/01/2023 Pneumococcal Vaccine: 50+ Years (3 of 3 - PCV20 or PCV21) 08/10/2026 08/10/2021, 07/22/2015 DTaP,Tdap,and Td Vaccines (2 - Td or Tdap) 06/21/2029 06/21/2019 RSV Vaccine (60+ years old and patients) Completed 10/06/2023 Hepatitis B Vaccines Aged Out No long er eligible based on patient's age to complete this topic [place] [address] [place] [address] Care Teams Pre Sales Network Engineer Relationship Specialty Start Date End Date Brock Shaw DO [address] [place] [address] PCP - General 12/27/23
--- OUTSIDE RECORDS SUMMARY | 2025-01-30 11:11 | XMS_ITS | Referral Summary ---
Author Organization [facility] Address [address] [id number] Care Team Providers Care Human Performance Consultant Name Role Phone Brock Shaw DO Primary Care Provider [phone] Allergies Active Allergy Reactions Criticality Noted Date [...] Active Active Problems No known active problems Social History Tobacco Use Types Packs/Day Years Used Date Smoking Tobacco: Former Cigarettes 1.5 9 1 4 - 1992 Smokeless Tobacco: Never Alcohol Use [...] 03/20/2024 1:12 PM EDT Plan of Treatment Not on [place] [address] [place] [address] Care Teams Human Performance Consultant Relationship Specialty Start Date End Date Brock Shaw DO [address] [place] [address] PCP - General 12/27/23
--- OUTSIDE RECORDS SUMMARY | 2025-01-30 11:11 | XMS_ITS | Clinical Summary ---
Author Organization [facility] Address [address] [place] [address] Phone Care Team Providers Care Barrel Lapper Name Role Phone Mi Puentes MD Primary Care Provider [phone] Allergies Active Allergy Reactions Criticality Noted Date Comments Wound Dressings 08/27/2021 Lactose 08/27/2021 Other 08/27/2021 Sulfa drugs Medications leflunomide (ARAVA) 20 MG tablet Take 20 mg by mouth 1 (one) time each day Active dilTIAZem (TIAZAC) 240 MG 24 hr capsule Take 240 mg by mouth 1 (one) time each day Active ferrous sulfate 325 (65 Fe) MG EC tablet Take 325 mg by mouth 3 (three) times a day with meals Do not crush, chew, or split. Active FLUoxetine (PROzac) 40 MG capsule Take 40 mg by mouth 1 (one) time each day Active gabapentin (NEURONTIN) 300 MG capsule Take 300 mg by mouth daily Active hydroCHLOROthia zide 25 MG tablet Take 25 mg by mouth 1 (one) time each day Active hydroxychloroqu ine (PLAQUENIL) 200 MG tablet Take 200 mg by mouth twice a day Active LORazepam (ATIVAN) 0.5 MG tablet Take 0.5 mg by mouth every 6 (six) hours if needed for anxiety Active methotrexate (TREXALL) 10 MG tablet Take 20 mg by mouth 1 (one) time per week Follow directions carefully, and ask to explain any part you do not understand. Take exactly as directed. Active omeprazole (PriLOSEC) [address] capsule Take 20 mg by mouth 1 (one) time each day Do not crush or chew. Active oxybutynin (DITROPAN) 5 MG tablet Take 5 mg by mouth twice a day Active traMADol (ULTRAM) 50 MG tablet Take 50 mg by mouth every 6 (six) hours if needed for moderate pain Active metoprolol succinate XL (TOPROL XL) 25 MG 24 hr tablet Take 12.5 mg by mouth 1 (one) time each day Do not crush or chew. Active Active Problems Problem Noted Date Diagnosed Date Chronic kidney disease, stage 2 (mild) Essential (primary) hypertension 08/27/2021 Immunizations Name Administration Dates Next Due Pneumococcal Conjugate 13-Valent 07/22/2015 Tdap 06/21/2019 Zoster 11/15/2020 Family History Medical History Relation Comments Cancer Brother Diabetes Father Heart attack Father Hypertension Father Kidney disease Father Alzheimer's disease Mother Cancer Mother Hypertension Mother Relation Status Comments Brother Father Mother Social History Tobacco Use Types Packs/Day Years Used Date Smoking Tobacco: Former Comments Unknown Sex and Gender Information Value Date Recorded Sex Assigned at Not on file Legal Sex Female 4:01 PM EDT Gender Identity Not on file Sexual Orientation Not on file Last Filed Vital Signs Vital Sign Reading Time Taken Comments Blood Pressure 108/64 08/28/2021 9:12 AM EDT Pulse 72 08/28/2021 9:12 AM EDT Temperature 35.4 ??C (95.8 ??F) 08/28/2021 9:12 AM ED T Respiratory Rate - - Oxygen Saturation - - Inhaled Oxygen Concentration - - Weight - - Height - - Body Mass Index - - Plan of Treatment Health Maintenance Due Date Last Done Comments Breast Cancer Screening 1959 Colorectal Cancer Screening: Annual FOBT 2008 Colorectal Cancer Screening: Colonoscopy 2008 Colorectal Cancer Screening: Sigmoidoscopy 2008 Pneumococcal Vaccine: 65+ Ye ars (2 of 2 - PPSV23 or PCV20) 09/16/2015 07/22/2015 Pneumococcal Vaccine: Pediat rics (0 to 5 Years) and At-Risk Patients (6 to 64 Years) (2 of 2 - PPSV23 or PCV20) 09/16/2015 07/22/2015 Influenza Vaccine (#1) 2024 Hepatitis B Vaccine Aged Out No longe r eligible based on patient's age to complete this topic Insurance MEDICARE MEDICAID [place] Care Teams Barrel Lapper Relationship Specialty Start Date End Date Mi Puentes MD [address] [place] [id number] PCP - General Family Medicine 07/30/21
--- OUTSIDE RECORDS SUMMARY | 2025-01-30 11:11 | XMS_ITS | Data Portability ---
Author Organization [facility], , [facility] Address [address] [place] [address] Care Team Providers Care Telemarketing Sales Representative Name Role Phone DRINKERMARIA ELENA OTHER Assessment No assessment recorded. Plan of Treatment Reminders Order Date Submit Date Provider Last Modified By Organization Details Last Modified Time Details Appointments None recorded. Lab erythrocyte sedimentati on rate by westergren method 2021 [facility], [address] [place] [address], [address], 15:16:11 C-reactive protein, quantitativ e, serum or plasma 2021 [facility], [address] [place] [address], [id number], 16:00:35 CMP, serum or plasma 2021 [facility], [address] [place] [address], [address], 11:18:40 CBC 2021 [facility], [address] [place] [address], [address], 12:01:10 Referral None recorded. Procedures None recorded. Surgeries None recorded. Imaging None recorded. Medication Orders Humira(CF) Pen 40 mg/0.4 mL subcutaneou s kit 2021 [email or web address] 4 Not available 09:23:58 Humira(CF) Pen 40 mg/0.4 mL subcutaneou s kit 2021 [address] [facility], [address], [place], [address], 2 16:46:30 methotrexat e sodium 2.5 mg tablet 2021 [email or web address] [facility], [address], [place], [address], 09:24:35 Patient TargetsNo targets recorded. Patient InstructionsNo instructions recorded. Reason for Referral None Reported. Results Created Date Observation Date Name Description Value Unit Range Abnormal Flag Note LastModifiedBy Organization Detail LastModifiedTime 05/19/2005/19/2022 CBC WBC 5.00 K/??L 3.98-1 0.04 Not Available [address], [address], 05/19/2022 12:22:07 05/19/20 22 05/19/2022 CBC RBC 4.17 M/??L 3.93-5 .22 Not Available [address], [address], 05/19/2022 12:22:07 05/19/20 22 05/19/2022 CBC HGB 12.4 g/dL 11.2-1 5.7 Not Available [address], [address], 05/19/2022 12:22:07 05/19/20 22 05/19/2022 CBC HCT 39.2 % 34.1-4 4.9 Not Available [address], [address], 05/19/2022 12:22:07 05/19/20 22 05/19/2022 CBC MCV 94.0 fL 79.4-9 4.8 Not Available [address], [address], 05/19/2022 12:22:07 05/19/20 22 05/19/2022 CBC MCH 29.7 pg 25.6-3 2.2 Not Available [address], [address], 05/19/2022 12:22:07 05/19/20 22 05/19/2022 CBC MCHC 31.6 g/dL 32.2-3 5.5 low Not Available [address], [address], 05/19/2022 12:22:07 05/19/20 22 05/19/2022 CBC plt 240 K/??L 182-36 9 Not Available [address], [address], 05/19/2022 12:22:07 05/19/20 22 05/19/2022 CBC MPV 9.3 fL 9.4-12 .3 low Not Available [address], [address], 05/19/2022 12:22:07 05/19/20 22 05/19/2022 CBC neut% 37.2 % 34.0-7 1.1 Not Available [address], [address], 05/19/2022 12:22:07 05/19/20 22 05/19/2022 CBC neut# 1.86 1.56-6 .13 Not Available [address], [address], 05/19/2022 12:22:07 05/19/20 22 05/19/2022 CBC lymph % 36.4 % 19.3-5 1.7 Not Available [address], [address], 05/19/2022 12:22:07 05/19/20 22 05/19/2022 CBC lymph # 1.82 K/??L 1.18-3 .74 Not Available [address], [address], 05/19/2022 12:22:07 05/19/20 22 05/19/2022 CBC mono% 14.4 % 4.7-12 .5 high Not Available [address], [address], 05/19/2022 12:22:07 05/19/20 22 05/19/2022 CBC mono# 0.72 0.24-0 .56 high Not Available [address], [address], 05/19/2022 12:22:07 05/19/20 22 05/19/2022 CBC eo% 9.8 % 0.7-5. 8 high Not Available [address], [address], 05/19/2022 12:22:07 05/19/20 22 05/19/2022 CBC eo# 0.49 0.04-0 .36 high Not Available [address], [address], 05/19/2022 12:22:07 05/19/20 22 05/19/2022 CBC baso% 2.0 % 0.1-1. 2 high Not Available [address], [address], 05/19/2022 12:22:07 05/19/20 22 05/19/2022 CBC baso# 0.10 0.00-0 .08 high Not Available [address], [address], 05/19/2022 12:22:07 05/19/20 22 05/19/2022 CBC RDW-CV 17.9 % 11.7-1 4.4 high Not Available [address], [address], 05/19/2022 12:22:07 05/19/20 22 05/19/2022 CBC Ig% 0.200 % 0.000- 1.500 Ig % >0.5 Indic ates possi ble Left Shift Not Available [address], [address], 05/19/2022 12:22:07 05/19/20 22 05/19/2022 CBC Ig# 0.010 0.000- 0.093 Not Available [address], [address], 05/19/2022 12:22:07 05/19/20 22 05/19/2022 CBC NRBC% 0.0 % 0.0-0. 2 Not Available [address], [address], 05/19/2022 12:22:07 05/19/20 22 05/19/2022 CBC NRBC# 0.000 0.000- 0.012 Not Available [address], [address], 05/19/2022 12:22:07 05/19/20 22 05/19/2022 ESR sed rate 37.0 0.0-15 .0 high Not Available [address], [address], 05/19/2022 15:13:55 05/19/20 22 05/20/2022 COMP. METAB OLIC PANEL glucose 130 mg/dL 70-100 high Not Available [address], [address], 05/20/2022 10:31:22 05/19/20 22 05/20/2022 COMP. METAB OLIC PANEL BUN 18 mg/dL 7-18 Not Available [address], [address], 05/20/2022 10:31:22 05/19/20 22 05/20/2022 COMP. METAB OLIC PANEL creatinine 1.1 mg/dL 0.8-1. 3 Not Available [address], [address], 05/20/2022 10:31:22 05/19/20 22 05/20/2022 COMP. METAB OLIC PANEL B/C 16.4 ratio Not Available [address], [address], 05/20/2022 10:31:22 05/19/20 22 05/20/2022 COMP. METAB OLIC PANEL GFR 56.8 mL/mi n abnormal >=60m L/min - Rita l or midly reduc ed <60mL /min- Decre ased kidne y funct ion <15mL /min - Kidne y failu re [facility] calcu lates estim ated Glome rular Filtr ation Rate (eGFR ) using the Chron ic Kidne y Disea se Epide miolo gy Colla borat ion (CKD- EPI) Equat ion (Elaina bradley et. al 2020) as recom otilia d by the Natio nal Kidne y Found ation . eGFR is based on age, serum creat inine , and sex. CKD-E PI does not calcu late eGFR by race, does not apply to child angel (age <18 years ), and shoul d not be used in pregn wilbur. Not Available [address], [address], 05/20/2022 10:31:22 05/19/20 22 05/20/2022 COMP. METAB OLIC PANEL sodium 142 mmol/ L 136-14 5 Not Available [address], [address], 05/20/2022 10:31:22 05/19/20 22 05/20/2022 COMP. METAB OLIC PANEL potassium 4.6 mmol/ L 3.5-5. 1 Not Available [address], [address], 05/20/2022 10:31:22 05/19/20 22 05/20/2022 COMP. METAB OLIC PANEL chloride 105 mmol/ L 96-107 Not Available [address], [address], 05/20/2022 10:31:22 05/19/20 22 05/20/2022 COMP. METAB OLIC PANEL anion gap 14.1 5.0-15 .0 Not Available [address], [address], 05/20/2022 10:31:22 05/19/20 22 05/20/2022 COMP. METAB OLIC PANEL CO2 23 mmol/ L 21-32 Not Available [address], [address], 05/20/2022 10:31:22 05/19/20 22 05/20/2022 COMP. METAB OLIC PANEL calcium 9.0 mg/dL 8.5-10 .3 Not Available [address], [address], 05/20/2022 10:31:22 05/19/20 22 05/20/2022 COMP. METAB OLIC PANEL total protein 6.9 g/dL 6.4-8. 2 Not Available [address], [address], 05/20/2022 10:31:22 05/19/20 22 05/20/2022 COMP. METAB OLIC PANEL albumin 3.5 g/dL 3.4-5. 0 Not Available [address], [address], 05/20/2022 10:31:22 05/19/20 22 05/20/2022 COMP. METAB OLIC PANEL globulin 3.4 g/dL Not Available [address], [address], 05/20/2022 10:31:22 05/19/20 22 05/20/2022 COMP. METAB OLIC PANEL A/G 1.0 ratio 0.8-2. 0 Not Available [address], [address], 05/20/2022 10:31:22 05/19/20 22 05/20/2022 COMP. METAB OLIC PANEL total bilirubin 0.30 mg/dL 0.00-1 .00 Not Available [address], [address], 05/20/2022 10:31:22 05/19/20 22 05/20/2022 COMP. METAB OLIC PANEL AST 43 U/L 0-37 high Not Available [address], [address], 05/20/2022 10:31:22 05/19/20 22 05/20/2022 COMP. METAB OLIC PANEL ALT 54 U/L 6-63 Not Available [address], [address], 05/20/2022 10:31:22 05/19/20 22 05/20/2022 COMP. METAB OLIC PANEL alk. phos. 81 U/L 50-136 Not Available [address], [address], 05/20/2022 10:31:22 05/19/20 22 05/20/2022 C-BRITNEY CTIVE PROTE IN-QU ANTIT ATIVE C-reactive protein -quant <2.0 mg/L 0.0-9. 0 < CRP VERIF IED Not Available [address], [address], 05/20/2022 13:28:50 05/19/20 22 05/21/2022 PROTE IN, TOTAL AND PROTE IN ELECT ROPHO RESIS protein, total 6.6 g/dL 6.1-8. 1 normal Not Available [employer] [facility] [address], [address], 05/21/2022 22:16:40 05/19/20 22 05/21/2022 PROTE IN, TOTAL AND PROTE IN ELECT ROPHO RESIS albumin 3.8 g/dL 3.8-4. 8 normal Not Available [facility] [address], [address], 05/21/2022 22:16:40 05/19/20 22 05/21/2022 PROTE IN, TOTAL AND PROTE IN ELECT ROPHO RESIS alpha 1 globulin 0.3 g/dL 0.2-0. 3 normal Not Available [facility] [address], [place], [address], 05/21/2022 22:16:40 05/19/20 22 05/21/2022 PROTE IN, TOTAL AND PROTE IN ELECT ROPHO RESIS alpha 2 globulin 0.8 g/dL 0.5-0. 9 normal Not Available [facility] [address], [place], [address], 05/21/2022 22:16:40 05/19/20 22 05/21/2022 PROTE IN, TOTAL AND PROTE IN ELECT ROPHO RESIS beta 1 globulin 0.5 g/dL 0.4-0. 6 normal Not Available [facility] [address], [place], [address], 05/21/2022 22:16:40 05/19/20 22 05/21/2022 PROTE IN, TOTAL AND PROTE IN ELECT ROPHO RESIS beta 2 globulin 0.5 g/dL 0.2-0. 5 normal Not Available [facility] [address], [place], [address], 05/21/2022 22:16:40 05/19/20 22 05/21/2022 PROTE IN, TOTAL AND PROTE IN ELECT ROPHO RESIS gamma globulin 0.7 g/dL 0.8-1. 7 low Not Available [facility] [address], [place], [address], 05/21/2022 22:16:40 05/19/20 22 05/21/2022 PROTE IN, TOTAL AND PROTE IN ELECT ROPHO RESIS interpretati on Consi stent with hypog ammag lobul inemi a. Serum free light chain s or urine immun ofixa tion shoul d be consi dered if plasm a cell dyscr asias are a possi ble clini salvador diagn osis. Not Available [facility] [address], [place], [address], 05/21/2022 22:16:40 05/19/20 22 05/21/2022 IMMUN OFIXA TION, SERUM eugene interpretati on No monoc lonal prote ins detec asif. Not Available [facility] [address], [place], [address], 05/21/2022 22:16:41 07/28/20 22 07/28/2022 COMP. METAB OLIC PANEL glucose 116 mg/dL 70-100 high Not Available [address], [address], 07/28/2022 11:18:40 07/28/20 22 07/28/2022 COMP. METAB OLIC PANEL BUN 22 mg/dL 7-18 high Not Available [address], [address], 07/28/2022 11:18:40 07/28/20 22 07/28/2022 COMP. METAB OLIC PANEL creatinine 1.2 mg/dL 0.8-1. 3 Not Available [address], [address], 07/28/2022 11:18:40 07/28/20 22 07/28/2022 COMP. METAB OLIC PANEL B/C 18.3 ratio Not Available [address], [address], 07/28/2022 11:18:40 07/28/20 22 07/28/2022 COMP. METAB OLIC PANEL GFR 51.2 mL/mi n abnormal >=60m L/min - Rita l or midly reduc ed <60mL /min- Decre ased kidne y funct ion <15mL /min - Kidne y failu re [facility] calcu lates estim ated Glome rular Filtr ation Rate (eGFR ) using the Chron ic Kidne y Disea se Epide miolo gy Colla borat ion (CKD- EPI) Equat ion (Elaina bradley et. al 2020) as recom otilia d by the Natio nal Kidne y Found ation . eGFR is based on age, serum creat inine , and sex. CKD-E PI does not calcu late eGFR by race, does not apply to child angel (age <18 years ), and shoul d not be used in pregn wilbur. Not Available [address], [address], 07/28/2022 11:18:40 07/28/20 22 07/28/2022 COMP. METAB OLIC PANEL sodium 141 mmol/ L 136-14 5 Not Available [address], [address], 07/28/2022 11:18:40 07/28/20 22 07/28/2022 COMP. METAB OLIC PANEL potassium 4.8 mmol/ L 3.5-5. 1 HEMS= Speci men Sligh tly Hemol yzed. Chem Resul ts may be effec asif. Not Available [address], [address], 07/28/2022 11:18:40 07/28/20 22 07/28/2022 COMP. METAB OLIC PANEL chloride 102 mmol/ L 96-107 Not Available [address], [address], 07/28/2022 11:18:40 07/28/20 22 07/28/2022 COMP. METAB OLIC PANEL anion gap 7.0 5.0-15 .0 Not Available [address], [address], 07/28/2022 11:18:40 07/28/20 22 07/28/2022 COMP. METAB OLIC PANEL CO2 32 mmol/ L 21-32 Not Available [address], [address], 07/28/2022 11:18:40 07/28/20 22 07/28/2022 COMP. METAB OLIC PANEL calcium 9.4 mg/dL 8.5-10 .3 Not Available [address], [address], 07/28/2022 11:18:40 07/28/20 22 07/28/2022 COMP. METAB OLIC PANEL total protein 6.9 g/dL 6.4-8. 2 Not Available [address], [address], 07/28/2022 11:18:40 07/28/20 22 07/28/2022 COMP. METAB OLIC PANEL albumin 3.4 g/dL 3.4-5. 0 Not Available [address], [address], 07/28/2022 11:18:40 07/28/20 22 07/28/2022 COMP. METAB OLIC PANEL globulin 3.5 g/dL Not Available [address], [address], 07/28/2022 11:18:40 07/28/20 22 07/28/2022 COMP. METAB OLIC PANEL A/G 1.0 ratio 0.8-2. 0 Not Available [address], [address], 07/28/2022 11:18:40 07/28/20 22 07/28/2022 COMP. METAB OLIC PANEL total bilirubin 0.50 mg/dL 0.00-1 .00 Not Available [address], [address], 07/28/2022 11:18:40 07/28/20 22 07/28/2022 COMP. METAB OLIC PANEL AST 13 U/L 0-37 Not Available [address], [address], 07/28/2022 11:18:40 07/28/20 22 07/28/2022 COMP. METAB OLIC PANEL ALT 29 U/L 6-63 Not Available [address], [address], 07/28/2022 11:18:40 07/28/20 22 07/28/2022 COMP. METAB OLIC PANEL alk. phos. 62 U/L 50-136 Not Available [address], [address], 07/28/2022 11:18:40 07/28/20 22 07/28/2022 MANUA L DIFFE ELLEN AL segs 39 % 34-71 Not Available [address], [address], 07/28/2022 12:00:30 07/28/20 22 07/28/2022 MANUA L DIFFE RENTI AL lymph 49 % 19-53 Not Available [address], [address], 07/28/2022 12:00:30 07/28/20 22 07/28/2022 MANUA L DIFFE RENTI AL mono 6 % 4-12 Not Available [address], [address], 07/28/2022 12:00:30 07/28/20 22 07/28/2022 MANUA L DIFFE RENTI AL eosin 3 % 0-7 Not Available [address], [address], 07/28/2022 12:00:30 07/28/20 22 07/28/2022 MANUA L DIFFE RENTI AL reactive lymph 2 % 0-10 Not Available [address], [address], 07/28/2022 12:00:30 07/28/20 22 07/28/2022 MANUA L DIFFE RENTI AL meta 1 % Not Available [address], [address], 07/28/2022 12:00:30 07/28/20 22 07/28/2022 GERDA VILLANUEVA platelet estimate ADEQUA TE Not Available [address], [address], 07/28/2022 12:00:30 07/28/20 22 07/28/2022 CBC WBC 14.99 K/??L 3.98-1 0.04 high PLEAS E SEE GERDA HUGHES AL Not Available [address], [address], 07/28/2022 12:01:10 07/28/20 22 07/28/2022 CBC RBC 4.54 M/??L 3.93-5 .22 Not Available [address], [address], 07/28/2022 12:01:10 07/28/20 22 07/28/2022 CBC HGB 13.7 g/dL 11.2-1 5.7 Not Available [address], [address], 07/28/2022 12:01:10 07/28/20 22 07/28/2022 CBC HCT 43.0 % 34.1-4 4.9 Not Available [address], [address], 07/28/2022 12:01:10 07/28/20 22 07/28/2022 CBC MCV 94.7 fL 79.4-9 4.8 Not Available [address], [address], 07/28/2022 12:01:10 07/28/20 22 07/28/2022 CBC MCH 30.2 pg 25.6-3 2.2 Not Available [address], [address], 07/28/2022 12:01:10 07/28/20 22 07/28/2022 CBC MCHC 31.9 g/dL 32.2-3 5.5 low Not Available [address], [address], 07/28/2022 12:01:10 07/28/20 22 07/28/2022 CBC plt 217 K/??L 182-36 9 Not Available [address], [address], 07/28/2022 12:01:10 07/28/20 22 07/28/2022 CBC MPV 9.9 fL 9.4-12 .3 Not Available [address], [address], 07/28/2022 12:01:10 07/28/20 22 07/28/2022 CBC neut% 44.2 % 34.0-7 1.1 Not Available [address], [address], 07/28/2022 12:01:10 07/28/20 22 07/28/2022 CBC neut# 6.62 1.56-6 .13 high Not Available [address], [address], 07/28/2022 12:01:10 07/28/20 22 07/28/2022 CBC lymph % 41.1 % 19.3-5 1.7 Not Available [address], [address], 07/28/2022 12:01:10 07/28/20 22 07/28/2022 CBC lymph # 6.16 K/??L 1.18-3 .74 high SREV= Slide revie wed by marcelino mitchell. Not Available [address], [address], 07/28/2022 12:01:10 07/28/20 22 07/28/2022 CBC mono% 9.8 % 4.7-12 .5 Not Available [address], [address], 07/28/2022 12:01:10 07/28/20 22 07/28/2022 CBC mono# 1.47 0.24-0 .56 high Not Available [address], [address], 07/28/2022 12:01:07/28/20 22 07/28/2022 CBC eo% 1.7 % 0.7-5. 8 Not Available [address], [address], 07/28/2022 12:01:07/28/2007/28/2022 CBC eo# 0.26 0.04-0 .36 Not Available [address], [address], 07/28/2022 12:01:07/28/20 22 07/28/2022 CBC baso% 1.3 % 0.1-1. 2 high Not Available [address], [address], 07/28/2022 12:01:07/28/20 22 07/28/2022 CBC baso# 0.19 0.00-0 .08 high Not Available [address], [address], 07/28/2022 12:01:10 07/28/20 22 07/28/2022 CBC RDW-CV 15.8 % 11.7-1 4.4 high Not Available [address], [address], 07/28/2022 12:01:07/28/20 22 07/28/2022 CBC Ig% 1.900 % 0.000- 1.500 high Ig % >0.5 Indic ates possi ble Left Shift Not Available [address], [address], 07/28/2022 12:01:10 07/28/20 22 07/28/2022 CBC Ig# 0.290 0.000- 0.093 high Not Available [address], [address], 07/28/2022 12:01:10 07/28/20 22 07/28/2022 CBC NRBC% 0.0 % 0.0-0. 2 Not Available [address], [address], 07/28/2022 12:01:10 07/28/20 22 07/28/2022 CBC NRBC# 0.000 0.000- 0.012 Not Available [address], [address], 07/28/2022 12:01:10 07/28/20 22 07/28/2022 ESR sed rate 14.0 0.0-15 .0 Not Available [address], [address], 07/28/2022 15:16:11 07/28/20 22 07/28/2022 C-BRITNEY CTIVE PROTE IN-QU ANTIT ATIVE C-reactive protein -quant <2.0 mg/L 0.0-9. 0 < crp verif ied, cmd Not Available [address], [address], 07/28/2022 16:00:35 Result Notes None recorded. Problems Name Problem SNOMED Code Status Onset Date Resolution Date Notes Provider Name and Address Organization Details Recorded Time Foot pain 26282486 Active Mauricio Martinez MD [address] [place] [address], [phone] , [facility] 5 18:28:39 Osteopeni a 735081747 Active Mauricio Martinez MD [address] [place] [address], [address] , [facility] 5 18:28:39 Dry eyes 935337650 Active Mauricio Martinez MD [address] [place] [address], [address] , [facility] 6 08:08:12 Long-term drug therapy Active 2016 Mauricio Martinez MD [address] [place] [address], [address] , [facility] 7 16:10:24 Morbid obesity 061346790 Active 2020 Most recent BMI 01/17/21 = 42.3. Makayla Mccabe LPN null, [facility] 1 11:37:58 Chronic kidney disease stage 3 563253491 Active 2021 GFR = 51.2 on 07/28/22 Cindy Thomas LPN null, [facility] 2 13:37:41 Rheumatoi d arthritis 67838558 Active 2004 Mauricio Martinez MD [address] [place] [address], [address] , [facility] 6 08:08:12 Spinal stenosis of lumbar region 04298693 Active 2006 Not Available [facility] 3 03:08:02 Osteoarth ritis of knee 320211864 Active 2005 Not Available [facility] 3 03:08:02 Inflammat ory polyarthr opathy 858357515 Active 2004 Not Available [facility] 3 03:08:02 Swelling of limb 42720157 Completed 200609/20/2013 Not Available [facility] 3 02:03:51 Enthesopa thy of hip region 06748659 Completed 200609/20/2013 Not Available [facility] 3 02:03:09 Hip pain 23097908 Completed 200509/20/2013 Not Available [facility] 3 02:01:32 Neck pain 64880707 Completed 09/20/2013 Not Available [facility] 3 02:00:33 Localized , primary osteoarth ritis of the ankle and/or foot 513287117 Active Mauricio Martinez MD [address] [place] [address], [address] , [facility] 5 19:45:48 Localized , primary osteoarth ritis 596921218 Active 2005 Not Available [facility] 3 03:08:02 Localized , primary osteoarth ritis of the pelvic region and thigh 412102291 Active Not Available [facility] 3 03:08:02 Tachycard ia 1376730 Active 2004 Not Available [facility] 3 03:08:02 Effusion of joint 986680737 Completed 200509/20/2013 Not Available [facility] 3 02:04:23 Knee joint effusion 120087331 Completed 200609/20/2013 Not Available [facility] 3 02:03:44 Anemia 876926745 Active 2006 Not Available [facility] 3 03:08:02 Low back pain 443947030 Active Not Available [facility] 3 03:08:02 Pain in wrist 87383196 Completed 200409/20/2013 Not Available [facility] 3 02:02:22 Backache 041979313 Completed 200609/20/2013 Not Available [facility] 3 02:01:12 Pain in limb 32574974 Completed 200709/20/2013 Not Available [facility] 3 02:00:53 Menopausa l and postmenop ausal disorders 325075461 Active 2008 Not Available [facility] 3 03:08:02 Malaise and fatigue 267200762 Completed 200409/20/2013 Not Available [facility] 3 02:00:15 Arthropat hy 206162687 Active 2006 Not Available [facility] 3 03:08:02 Problem Notes None recorded. Procedures Surgical History Date Name Laterality Status Provider Name and Address Organization Details Recorded Time 0 Knee (Left) Injection completed Mauricio Martinez MD [address] [place] [address], [address], [facility] 05/02/2010 08:42:51 0 Generic Procedure Template completed Mauricio Martinez MD [address] [place] [address], [address], [facility] 04/11/2010 13:49:38 0 Knee (Right) Injection completed Mauricio Martinez MD [address] [place] [address], [address], [facility] 04/11/2010 13:49:38 9 Generic Procedure Template completed Mauricio Martinez MD [address] [place] [address], [address], [facility] 08/14/2009 10:10:09 9 Generic Procedure Template completed Mauricio Martinez MD [address] [place] [address], [phone], [facility] 04/03/2009 10:04:14 Imaging Results None recorded. Procedure Notes None recorded. Medical Equipment None Reported. Allergies Allergen ID Allergen Name Allergen Category Reaction Reaction Severity Criticality Documentation Date Start Date Code Code System Note Provider Name and Address Organization Details Recorded Time 60274 Substance with sulfonami de structure and antibacte rial mechanism of action (substanc e) medicatio n rash Not available Not available 04/02/2009 61580 8003 SNOMED Not Available [facility] 1 06:05:20 47929 Tylenol medicatio n nausea vomiting Not available Not available Not available 04/02/2009 57397 3 RxNorm Not Available [facility] 1 06:05:20 541065 oxybutyni n medicatio n Not available Not available Not available 01/20/2013 13524 RxNorm Sonam Can brooke [facility] 3 10:54:54 452309 adhesive tape environme nt,medica tion itching Not available Not available 07/21/2018 34353 UNK PRECIOUS Niño [facility] 8 09:05:23 Medications Name Sig Start Date Stop Date Status Note LastModified by Organization Details LastModified Time Prescript ion - Prior Authoriza tion Request 11/29 completed Not Available Not Available Not Available fluoxetin e 40 mg capsule Takes 40mg cap, 10mg cap, and a 20mg cap= TDD 70mg active Not Available Not Available No t Available prednison e 10 mg tablet TAKE 1 TABLET BY MOUTH EVERY DAY FOR 10 DAYS active Not Available Not Available No t Available Vicodin 5 mg-500 mg tablet Take 1 tablet every day by oral route at bedtime. 10/14 completed Not Available Not Available Not Available diltiazem CD 240 mg capsule,e xtended release 24 hr Take 1 capsule every day by oral route. active Not Available Not Available No t Available prednison e 20 mg tablet TAKE 2 TABLETS BY MOUTH EVERY DAY FOR 7 DAYS, 1 AND 1/2 (HALF) TABLETS EVERY DAY FOR 7 DAYS, THEN TAKE 1 TABLET EVERY DAY active Not Available Not Available No t Available prednison e 5 mg tablet 01/13 completed 5mg take 1 1/2 daliy Not Available Not Available Not Available peg-elect rolyte solution 420 gram oral solution active Not Available Not Available Not Available leflunomi de 20 mg tablet Take one tab daily active Not Available Not Available No t Available tramadol 50 mg tablet TAKE 1 TO 2 TABLETS BY MOUTH EVERY 6 HOURS NEEDED FOR PAIN active Not Available Not Available No t Available amoxicill in 500 mg tablet TAKE 1 TABLET BY MOUTH EVERY 8 HOURS UNTIL FINISHED active not taking Not Available Not Available Not Available nystatin- triamcino lone 100,000 unit/gram -0.1 % topical ointment APPLY TO THE AFFECTED AREA(S) BY TOPICAL ROUTE 2 TIMES PER DAY active PRN Not Available Not Available No t Available Celebrex 200 mg capsule 01/30 completed QD Not Available Not Available Not Available lorazepam 0.5 mg tablet TAKE 1 TABLET BY MOUTH DAILY active Not Available Not Available No t Available methotrex ate sodium 2.5 mg tablet TAKE 9 TABLETS WEEKLY active not taking d/c Not Available Not Available Not Available Diflucan 100 mg tablet Take 1 tablet every day by oral route. 2010 active Not Available Not Available Not Avai lable prednison e 1 mg tablet 2007 active Take 3.00 tabs daily Not Available Not Available Not Available prednison e 50 mg tablet TAKE 1 TABLET BY MOUTH EVERY DAY FOR 10 DAYS active other 7 days then tapering down Not Available Not Available Not Available gabapenti n 300 mg capsule TAKE 3 CAPSULES EVERY DAY DIRECTED active Not Available Not Available No t Available Advil 200 mg tablet Take 1 tablet every 6 hours by oral route. 07/21 completed PRN Not Available Not Available Not Available omeprazol e 20 mg capsule,d elayed release Take 1 capsule every day by oral route. active Not Available Not Available No t Available folic acid 1 mg tablet TAKE 3 TABLETS BY MOUTH EVERY DAY 2015 active OTC 800 mcg x4 daily= 3200 mcg Not Available Not Available Not Available hydrochlo rothiazid e 25 mg tablet TAKE 1 TABLET BY MOUTH DAILY active Not Available Not Available No t Available metoprolo l succinate ER 25 mg tablet,ex tended release 24 hr Take 1 tablet every day by oral route. active Not Available Not Available No t Available hydroxych loroquine 200 mg tablet take 1 tablet twice a day active not taking d/c Not Available Not Available Not Available Percocet 5 mg-325 mg tablet Take 2 tablets every 6 hours by oral route as needed for pain. 10/30 completed Not Available Not Available Not Available oxybutyni n chloride 5 mg tablet active Not Available Not Available Not Available atovaquon e 750 mg/5 mL oral suspensio n TAKE 10 ML BY MOUTH EVERY DAY FOR 60 DAYS WHILE ON PREDNISO NE active Not Available Not Available No t Available Rituxan 2010 active Not Available Not Available Not Avai lable Tylenol as needed 11/18 completed Not Available Not Available Not Available gabapenti n 300mg 2tabs in am, 2 in afternoo n and 3 at hs active Not Available Not Available No t Available metoprolo l succ 25 mg-hydroc hlorothia zide 12.5 mg tablet,ex t.rel 24 hr Take 1 tablet every day by oral route. 03/04 completed Added In error, takes separtat zuleima Not Available Not Available Not Available marijuana (cannabis ) Vapes active uses once per day in the evening Not Available Not Available Not Available Humira(CF ) Pen 40 mg/0.4 mL subcutane ous kit Inject 0.4 mL every 2 weeks by subcutan eous route for 28 days. active holding it while on antibiot ics Not Available Not Available Not Available Rinvoq 15 mg tablet,ex tended release TAKE 1 TABLET BY MOUTH EVERY DAY active not taking Not Available Not Available Not Available COVID-19 test specimen collectio n TAKE DIRECTED active Not Available Not Available No t Available BinaxNOW COVID-19 Ag Self Test kit TEST DIRECTED TODAY active Not Available Not Available No t Available Vitals Date Recorded Body height Body mass index (BMI) Body weight Heart rate Systolic blood pressure Diastolic blood pressure Provider Name and Address Organization Details Last Updated DateTime 2 160.02 cm 39 kg/m2 74975.7 6 g 92 /min 110 mm[Hg] 62 mm[Hg] Lu De León [facility] 2 09:33:16 Date Recorded Body height Provider Name an d Address Organization Details Last Updated DateTime 04/16/2022 160.02 cm Lu De León [facility] 04/16/2022 15:19:32 Date Recorded Body height Body mass index (BMI) Body weight Systolic blood pressure Diastolic blood pressure Provider Name and Address Organization Details Last Updated DateTime 07/01/2022 160.02 cm 40 kg/m2 039042.8 8 g 122 mm[Hg] 66 mm[Hg] Lu De León [facility] 2 09:21:11 Date Recorded Body height Body mass index (BMI) Body weight Heart rate Provider Name and Address Organization Details Last Updated DateTime 08/05/2022 160.02 cm 40 kg/m2 185195.88 g 92 /min Lu De León [facility] 08/05/2022 09:53:11 Social History Question Answer Notes LastModified by Organizat ion Details LastModified Time Tobacco Smoking Status Former [facility] in 1992 [facility] Available [facility] 09/03/2020 03:17:56 What Is Your Level Of Alcohol Consumption? 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 03/19/2019 [id number] Information not available 09/03/2020 General Stress Level High Stressful Work. [email or web address] Information not available 05/02/2010 Sex: Unknown Functional Status None recorded. Mental Status None recorded. Family History Relationship Description Onset Age of this Age Resolved Age Notes LastModified by Organization Details LastModified Time Mother Unrelated [email or web address] Not available 08/31/2013 08:12:06 Medical History Condition Response Osteoarthritis Y GERD Y PSYCHIATRIC Rheumatoid Arthritis Y INFECTIOUS DISEASE Y METABOLIC Gynecological HistoryNo gynecological history recorded. Obstetrics History GPAL:G 0 P 0 0 0 0 Immunizations Vaccine Type Date Status Note Provider Nam e and Address Organization Details Recorded Time pneumococcal polysaccharide PPV23 1 completed PRECIOUS [place], [facility] 08/11/2021 16:28:47 COVID-19, mRNA, LNP-S, PF, 100 mcg/0.5mL dose or 50 mcg/0.25mL dose 1 completed PRECIOUS [place], [facility] 03/25/2022 09:30:36 COVID-19, mRNA, LNP-S, PF, 100 mcg/0.5mL dose or 50 mcg/0.25mL dose 1 completed PRECIOUS [place] [facility] 03/25/2022 09:30:50 COVID-19, mRNA, LNP-S, PF, 100 mcg/0.5mL dose or 50 mcg/0.25mL dose 1 completed PRECIOUS [place], [facility] 03/25/2022 09:30:58 Influenza, split virus, quadrivalent, preservative 1 completed PRECIOUS [place], [facility] 03/25/2022 09:31:28 Past Encounters Encounter ID Performer Location Encounter Start Date Encounter Closed Date Diagnosis/Indication Diagnosis SNOMED-CT Code Diagnosis ICD10 Code Diagnosis Note [id number] Radiology , [facility] [address] [facility] [place] [address] 10/05/2005 13:25:17 10/05/2005 15:21:47 [id number] LAB - [address] [place] [address] 10/05/2005 14:00:00 10/05/2005 14:00:19 [id number] Rheumatol virgen [address] [place] [address] 10/05/2005 12:47:15 10/05/2005 15:53:12 [id number] Rheumatol oghillary, [place] [address] 01/04/2006 15:13:06 01/04/2006 18:01:34 [id number] Radiology , [facility] [place] [address] 03/05/2006 14:52:06 03/05/2006 16:22:30 [id number] Radiology , [facility] [place] [address] 03/05/2006 00:00:00 11/21/2008 02:02:29 [id number] LAB - [facility] [place] [address] 03/05/2006 15:20:16 03/05/2006 15:20:35 [id number] Rheumatol oghillary [facility] [place] [address] 1 04/13/2006 14:54:25 04/14/2006 13:40:39 [id number] LAB - [facility] [place] [address] 1 06/04/2006 14:57:48 06/04/2006 14:58:00 [id number] Radiology , [facility] [place] [address] 1 09/17/2006 16:02:14 09/17/2006 17:52:23 [id number] Radiology , [facility] [place] [address] 1 09/17/2006 00:00:00 11/21/2008 02:02:29 [id number] Rheumatol oghillary, [facility] [place] [address] 1 09/17/2006 15:13:12 11/21/2008 02:02:29 [id number] Rheumatol oghillary, [facility] [place] [address] 1 09/27/2006 11:41:02 09/27/2006 17:51:15 [id number] Radiology , [facility] [place] [place] [address] 1 10/12/2006 11:51:47 11/21/2008 02:02:29 [id number] Radiology , [facility] [place] [address] 1 10/12/2006 00:00:00 11/21/2008 02:02:29 [id number] Rheumatol oghillary [facility] [place] [address] 1 10/12/2006 11:15:53 10/13/2006 06:39:38 [id number] Rheumatol oghillary [facility] [place] [address] 1 11/17/2006 08:22:39 11/17/2006 17:16:18 [id number] Radiology , [facility] [place], [place] [address] 11/17/2006 09:01:20 11/17/2006 17:11:27 [id number] Radiology , [facility] [place], [place] [address] 11/17/2006 00:00:00 11/21/2008 02:02:29 [id number] LAB - [facility] [place] [address] 1 12/22/2006 12:48:20 12/22/2006 12:48:30 [id number] Rheumatol oghillary [facility] [place], [place] [address] 01/20/2007 08:39:29 01/20/2007 14:07:40 [id number] LAB - [facility] [place] [address] 1 01/20/2007 09:12:44 01/20/2007 09:12:57 [id number] Rheumatol virgen [facility] [place] [address] 03/15/2007 14:23:12 03/16/2007 10:48:41 [id number] Rheumatol oghillary [facility] [place], [place] [address] 04/22/2007 08:33:51 04/25/2007 07:07:47 [id number] Radiology , [facility] [place], [place] [address] 04/22/2007 09:18:40 04/22/2007 15:03:59 [id number] Radiology , [place] [address] [place] [address] 04/22/2007 00:00:00 11/21/2008 02:02:29 [id number] Rheumatol oghillary [facility] [place] [address] 1 06/28/2007 15:00:38 06/29/2007 14:22:51 [id number] Rheumatol virgen [facility] [place] [address] 1 07/19/2007 11:45:05 07/19/2007 16:10:21 [id number] Layneol virgen [facility] [place] [address] 1 08/05/2007 09:36:20 08/08/2007 06:55:11 [id number] Rheumatol virgen [facility] [place] [address] 1 08/12/2007 10:59:17 08/15/2007 06:44:37 [id number] LAB - [facility] [place] [address] 1 08/12/2007 11:42:24 08/12/2007 11:42:35 [id number] Rheumatol virgen [facility] [place] [address] 1 08/19/2007 15:22:43 11/21/2008 02:02:29 [id number] Thomas new [facility] [place] [address] 1 08/26/2007 14:48:51 08/31/2007 09:40:43 [id number] LAB - [facility] [place] [address] 1 08/26/2007 15:21:33 08/26/2007 15:21:42 [id number] Rheumatmalena new [facility] [place] [address] 1 09/02/2007 08:06:35 11/21/2008 02:02:29 [id number] LAB - [facility] [place] [address] 1 09/13/2007 15:56:30 09/13/2007 15:56:38 [id number] Thomas new [facility] [place] [id number] 1 09/13/2007 14:47:31 09/28/2007 08:42:41 [id number] Rheumatol virgen [facility] [place] [address] 1 10/21/2007 16:39:39 11/21/2008 02:02:29 [id number] Radiology , [facility] [place] [address] 1 11/18/2007 15:57:20 11/18/2007 17:55:15 [id number] Radiology , [facility] [place] [address] 1 11/18/2007 00:00:00 11/21/2008 02:02:29 [id number] Rheumatol ogy, [facility] [place] [address] 1 11/18/2007 14:57:53 11/21/2008 02:02:29 [id number] LAB - [facility] [place] [id number] 1 11/18/2007 14:48:29 11/18/2007 14:48:38 [id number] Rheumatol ogy, [facility] [place] [address] 1 04/19/2008 10:35:27 11/21/2008 02:02:29 [id number] Rheumatol ogy, [facility] [place] [address] 1 08/06/2008 07:59:16 11/21/2008 02:02:29 [id number] LAB - [facility] [place] [address] 1 08/06/2008 08:32:59 08/06/2008 08:33:12 [id number] Sandie Rivera LPN Rheumatol ogy, [facility] [place] [address] [id number] Radiology , [place] [address] [place] [address] 1 03/18/2009 15:57:10 03/21/2009 11:33:55 [id number] Rheumatol ogy, [facility] [place] [address] 1 04/02/2009 13:24:50 04/04/2009 10:02:51 [id number] Radiology , [place] [address] [place] [address] 1 04/02/2009 14:23:18 04/04/2009 14:05:34 [id number] Radiology , [address] [place] [address] 1 04/02/2009 14:23:45 04/03/2009 16:51:22 [id number] Radiology , [facility] [place] [address] 1 04/02/2009 14:25:50 04/03/2009 16:43:54 [id number] Rheumatol oghillary [facility] [place] [address] 1 08/12/2009 11:00:30 08/15/2009 11:24:44 [id number] Radiology , [facility] [place] [address] 1 03/18/2009 00:00:00 08/29/2009 02:00:52 [id number] Radiology , [facility] [place] [address] 1 04/02/2009 00:00:00 08/29/2009 02:00:52 [id number] LAB - [facility] [place] [address] 1 08/12/2009 11:36:05 08/12/2009 11:36:21 [id number] Rheumatol oghillary, [facility] [place] [address] 1 10/11/2009 12:54:43 10/14/2009 10:14:13 [id number] Radiology , [facility] [place] [id number] 1 10/11/2009 13:39:51 10/16/2009 13:50:14 [id number] Rheumatol virgen [facility] [place] [id number] 1 10/14/2009 10:04:12 10/15/2009 09:45:57 [id number] Rheumatol virgen [facility] [place] [address] 1 04/11/2010 08:58:22 04/11/2010 14:09:59 [id number] Rheumatol virgen [facility] [place] [id number] 1 05/02/2010 07:58:57 05/06/2010 09:35:12 [id number] Rheumatol virgen [facility] [place] [address] 1 01/12/2011 10:21:20 01/12/2011 13:27:41 [id number] Radiology , [address] [place] [address] 1 01/13/2011 09:13:10 01/13/2011 09:47:00 [id number] Radiology , [facility] [place] [address] 1 01/13/2011 09:18:48 01/13/2011 09:48:55 [id number] Rheumatol oghillary [facility] [place] [address] 1 02/27/2011 08:34:18 03/03/2011 08:40:08 [id number] Rheumatol oghillary [facility] [place] [address] 1 04/21/2011 08:19:01 04/22/2011 08:43:36 [id number] Rheumatol virgen [facility] [place] [address] 1 10/31/2012 10:18:01 11/02/2012 09:32:56 [id number] Rheumatol virgen [facility] [place], [place] [address] 01/20/2013 09:59:33 01/23/2013 09:17:14 [id number] Rheumatol virgen [facility] [place], [place] [address] 08/29/2013 10:35:24 09/01/2013 09:10:34 Rheumatoid arthritis [id number] RA. Long hx erosive RA. Synovitis seems well controlled on current meds. Some swelling R knee (see below). Foot pain probably NOT directly related to RA. No signs of synovitis in feet. Check labs, continue current meds. Knee joint effusion [id number] Small trace warm effusion R knee. Prior TKR. She is complainin g of a little pain. If sx's persist or increase will need to see Ortho. Emphasized this is improtant. Synovitis related to RA is possible, though late, indolent infection could also be conceivabl e. Foot pain 08424004 Pain with prolongued standing. No swelling or AM stiffness. I think this is more mechanical rather than inflammato ry symptoms. I suggested she be seen by a lead pharmacy technician for ? orthotics. [id number] Rheumatol oghillary [address] [place] [address] 04/04/2014 09:04:15 04/05/2014 09:07:45 Rheumatoid arthritis [id number] RA. Long hx erosive RA. Synovitis seems well controlled on current meds. No signs active synovitis today. Encouraged exercise and weight loss. Perhaps she is candidate for Exercise is Medicine program. Check labs, continue current meds. Foot pain 48173152 Pain with prolongued standing. No swelling or AM stiffness. I think this is more mechanical rather than inflammato ry symptoms. Sx's improved with better foot gear. Long-term drug therapy [id number] On electrotherapist MTX and LEF. No signs or symptoms of toxicity. Pt tells me she had elevation in enzymes a year or so ago. . Continue to monitor labs q 2 monthly for now. . Continue folate/blaze covorin. [facility] methotrexate user [id number] Mauricio Martinez MD Rheumatol ogy, [address] [place] [address] 04/17/2015 10:00:39 04/18/2015 09:36:23 Rheumatoid arthritis 25882306 RA. Long hx erosive RA. Synovitis seems very well controlled on current meds. No signs active synovitis today. On questionin g, she is taking the medication s irregularl y, probably only at about half dose. At last visit one year ago, I wrote for a 6 mo supply and she is just now running out. Evidently, she can get by with lower dose of medication , but discussed that I want her to take it regularly. Specifical ly, reduce dose of LEF to 20 qod. Reduce dose of MTX to 5 per week. Repeat labs in 1 mo, followup 4-5 mo. Encouraged exercise and weight loss. Suggested referral to nutrition; eating habits poor. [facility]FP methotrexate user [id number] Long-term drug therapy [id number] On electrotherapist MTX and LEF. No signs or symptoms of toxicity. Pt tells me she had elevation in enzymes a year or so ago. . Continue to monitor labs q 2 monthly for now. . Continue folate/blaze covorin. Localized, primary osteoarthritis of the ankle and/or foot [id number] Bilat ankle and foot pain, worse with prolonged standing, walking. Does better in supportive shoe. I suggested she try arch support insert. Discussed weight loss. [id number] Mauricio Martinez MD Rheumatol hillary, [address] [address] 09/19/2015 09:29:16 09/19/2015 10:07:52 Rheumatoid arthritis 95299095 M06.9 RA. Long hx erosive RA. Synovitis seems very well controlled on current meds. No signs active synovitis today. At last visit 5 mo ago I encouraged she reduce dose of meds. She is back at full dose, but I am not completely sure this is warrented. For now continue MTX 20/wk, LEF 20 daily, Plaquenil, but I will re eval at next visit, consider trying to reduce meds again. Encouraged exercise and weight loss. Suggested referral to nutrition; eating habits poor. Foot pain 46808324 M79.6 71 Pain with prolongued standing. No swelling or AM stiffness. Eliezer enlargemen t R midfoot. I think this is more mechanical rather than inflammato ry . Check x ray. Suggest referral to podiatry. Osteopenia 071292152 M85 .80 Hx of mild osteopenia at last scan 6 yrs ago. Post menopausal and with RA. We should repeat. [id number] Mauricio Martinez MD Rheumatol [facility], [address] [address] 03/23/2016 09:55:29 03/25/2016 14:20:05 Rheumatoid arthritis 25160515 M06.9 RA. Long hx erosive RA. Synovitis seems very well controlled on current meds. No signs active synovitis today. We again discussed that it like to see if we can reduce her medication s somewhat. Written instructio ns to reduce Plaquenil to 200 mg daily for April. Starting in May, reduce methotrexa te to 15 mg per week. Continue leflunomid e. She needs updated labs in May. Return visit in 6 months, sooner if needed. Encouraged exercise and weight loss. Suggested again referral to nutrition; eating habits poor. Dry eyes 326463467 H04.1 29 She was told by ophthalmol ogist about dry eyes. Using drops. Also dry mouth. Check Sjogren's antibodies .Suggested Sjogren's [employer] website. Long-term drug therapy 820782365 Z79.899 On electrotherapist MTX and LEF. No signs or symptoms of toxicity. Pt tells me she had elevation in enzymes a couple of years ago. . Continue to monitor labs q 3 monthly for now. . Continue folate/blaze covorin. [id number] Mauricoi Martinez MD Rheumat[facility], [address] [place] [address] 10/22/2016 09:32:42 10/23/2016 07:18:34 Rheumatoid arthritis 10474934 M06.9 RA. Long hx erosive RA. Synovitis seems very well controlled on current meds. Few signs active synovitis today, perhaps sl synovitis at L wrist..Rec ent labs all OK. She needs updated labs in 3 mo. Return visit in 6 months, sooner if needed. Encouraged exercise and weight loss. [id number] Mauricio Martinez MD Rheumatol virgen, [address] [place] [address] 05/20/2017 09:18:33 05/20/2017 09:45:40 Rheumatoid arthritis 04752155 M06.9 RA. Long hx erosive RA. Synovitis seems very well controlled on current meds. Essentiall y no signs active synovitis today, perhaps a little at L wrist.. No change in meds today. I proposed reducing Plaquenil, but she says that every time she tries reducing meds she runs into trouble. No change now. Recent labs all OK. She needs updated labs every 3 mo. Return visit in 6 months, sooner if needed. Encouraged exercise and weight loss.Discu ssed exercise stratagies . For the summer will try swimming. Pain in left knee 528941 [id number] [id number] M25.562 S/p L TKR. No specific findings today. For persisting sxs should see Ortho. Long-term drug therapy [id number] Z79.899 On electrotherapist MTX and LEF. No signs or symptoms of toxicity. Pt tells me she had elevation in enzymes a couple of years ago. . Continue to monitor labs q 3 monthly for now. . Continue folate/blaze covorin. Also Plaquenil. She is up to date on eye exams. Morbid obesity 611870247 E66.01 Reached 250 lbs. Past 2 mo doing well with Nutrasyste m diet, has lost 20 lbs. [id number] Mauricio Martinez MD Rheumatol [address] [address] 11/18/2017 09:36:43 11/18/2017 13:16:31 Rheumatoid arthritis 48244464 M06.9 RA. Long hx erosive RA. Synovitis seems very well controlled on current meds. Essentiall y no signs active synovitis today.. No change in meds today. Recent labs all OK. She needs updated labs every 3 mo. Return visit in 6 months, sooner if needed. Encouraged exercise and weight loss. Long-term drug therapy 325097148 Z79.899 On electrotherapist MTX and LEF. No signs or symptoms of toxicity. Pt tells me she had elevation in enzymes a couple of years ago. . Continue to monitor labs q 3 monthly for now. . Continue folate/blaze covorin. Also Plaquenil. She is up to date on eye exams. Spinal trevor nosis of lumbar region 91756653 M48.061 Chronic back pain. Weight contribute s, but has had no lasting success with dieting etc.Does not exercise. [id number] Mauricio Martinez MD Rheumatol [address] [address] 07/21/2018 08:59:47 07/21/2018 09:36:25 Rheumatoid arthritis 84454910 M06.9 RA. Long hx erosive RA. Synovitis seems very well controlled on current meds. Essentiall y no signs active synovitis today.. No change in meds today. Last labs OK. Due for labs in 1 mo. . She needs updated labs every 3 mo. Return visit in 6 months, sooner if needed. Encouraged exercise and weight loss. Osteopenia 263377778 M85 .80 Hx of mild osteopenia at last scan 2014. Post menopausal and with RA. We should repeat in 2020. . Long-term drug therapy 801734975 Z79.899 On fci MTX and LEF. No signs or symptoms of toxicity. Pt tells me she had elevation in enzymes a couple of years ago. . Continue to monitor labs q 3 monthly for now. . Continue folate/blaze covorin. Also Plaquenil. She is up to date on eye exams. Hip pain 31053377 M25.55 9 bilat THR about 8 years ago. Hip pain with ambulation .Should probably be re-eval by ortho. [id number] Mauricio Martinez MD Rheumatol [address] [place] [address] 03/16/2019 10:07:25 03/20/2019 07:08:46 Rheumatoid arthritis 06028705 M06.4 RA. Long hx erosive RA. Synovitis seems very well controlled on current meds. Essentiall y no signs active synovitis today..I wonder about gradual progressio n erosive disease L wrist. Update x ray (it has been log time). No change in meds today. Last labs OK. Due for labs in 2 mo. . She needs updated labs every 3 mo. Return visit in 6 months, sooner if needed. Encouraged exercise and weight loss. Pain of left wrist [id number] 35210 M25.532 pain and subluxatio n L wrist. Has not had x ray in years. Updated basline . Long-term drug therapy [id number] Z79.899 On electrotherapist MTX and LEF. No signs or symptoms of toxicity. Pt tells me she had elevation in enzymes a couple of years ago. . Continue to monitor labs q 3 monthly for now. . Continue folate/blaze covorin. Also Plaquenil. She is up to date on eye exams. Pain in toe [id number] M7 9.676 nodule, swelling overlying 5th MTP. Not symptomati c.Offered local injection; declined for now. [id number] Mauricio Martinez MD Rheumat[facility] [place] [address] 09/21/2019 10:23:20 09/22/2019 06:05:10 Localized, primary osteoarthritis of the pelvic region and thigh [id number] M19.91 On gapapentin for back pain. Helps. Rheumatoid arthritis [id number] 44321 M06.4 RA. Long hx erosive RA. Synovitis seems very well controlled on current meds. Essentiall y no signs active synovitis today.. After last visit, we updated x ray L wrist. I reviewed x ray images with her.Compar ed to 2007, there has been substantia l progressio n with erosive disease, loss and fusion of carpal bones. Discussed that although current meds seem to control synovitis, there probably continues to be subclinica l inflammati on and damage.Dis cussed options.Pr ior treatment included Enbrel, but had recurring skin infections . Had one course of Rituxan without much benefit. Has been on MTX + LEF since ~ 2007.She is opposed to the thought of trying additional Biologics. No change in meds today. Last labs OK. Due for labs in 3 mo. . She needs updated labs every 3 mo. Return visit in 6 months, sooner if needed. Encouraged exercise and weight loss. Long-term drug therapy [id number] Z79.899 On electrotherapist MTX and LEF. No signs or symptoms of toxicity. Pt tells me she had elevation in enzymes a couple of years ago. . Continue to monitor labs q 3 monthly for now. . Continue folate/blaze covorin. Also Plaquenil. She is up to date on eye exams. [id number] Mauricio Martinez MD [facility] [place], [facility] [address] [facility] [place] [address] 02/16/2020 08:18:06 02/16/2020 12:36:02 Rheumatoid arthritis [id number] M06.4 RA. Long hx erosive RA. Synovitis seems very well controlled on current meds. Essentiall y no change in inflammato ry sxs today. Discussed that although current meds seem to control synovitis, there probably continues to be subclinica l inflammati on and damage.Dis cussed options.Pr ior treatment included Enbrel, but had recurring skin infections . Had one course of Rituxan without much benefit. Has been on MTX + LEF since ~ 2007.She is opposed to the thought of trying additional Biologics. Discussed immunosupp ression and oneal virus. No change in meds today. Last labs OK. Due for labs in March. Return visit in 4-6 months, sooner if needed. Encouraged exercise and weight loss. Contusion of chest 13913 004 S20.212A Describes contusion upper anterior chest wall 2 weeks ago. Clearly improving. No pleuritic pain or SOB. No worrisome sxs at present. Should gradually resolve. Neck pain [id number] M54.2 Pain in neck, worse as day goes on. Some radiation to R occiput. Otherwise no radicular sxs, no weakness. Suspect degen disc disease.Of fered virtual PT appointmen ean. Declined for now. Long-term drug therapy [id number] Z79.899 On electrotherapist MTX and LEF. No signs or symptoms of toxicity. Pt tells me she had elevation in enzymes a couple of years ago. . Continue to monitor labs q - 4 monthly for now. . Continue folate/blaze covorin. Also Plaquenil. She is up to date on eye exams. [id number] Mauricio Martinez MD Rheumatol [address] [address] 03/28/2020 10:21:29 03/28/2020 12:10:35 Rheumatoid arthritis [id number] M06.4 RA. Long hx erosive RA. Synovitis seems fairly well controlled on current meds.Some increase in hand and foot sxs lately. CRP sl elevated. Discussed options.Pr ior treatment included Enbrel, but had recurring skin infections . Had one course of Rituxan without much benefit. Has been on MTX + LEF since ~ 2007.She is opposed to the thought of trying additional Biologics. No change in meds today, but will update labs in 6 weeks and review pt is 8 weeks.Raimundo medina, to be followed by Dr Rocha. Long-term drug therapy [id number] Z79.899 On fci MTX and LEF. No signs or symptoms of toxicity. Pt tells me she had elevation in enzymes a couple of years ago. . Continue to monitor labs q - 4 monthly for now. . Continue folate/blaze covorin. Also Plaquenil. She is up to date on eye exams. [id number] Mauricio Martinez MD Rheumatol [facility], [address] [address] 05/24/2020 09:30:22 05/24/2020 11:31:06 Rheumatoid arthritis [id number] M06.4 RA. Long hx erosive RA. Synovitis seems fairly well controlled on current meds.Joint sxs stable. ESR and CRP ~ stable or sl improved. Discussed options.Pr ior treatment included Enbrel, but had recurring skin infections . Had one course of Rituxan without much benefit. Has been on MTX + LEF since ~ 2007.She is opposed to the thought of trying additional Biologics. No change in meds today.Upda te labs 3 mo.RV 4 mo or sooner if needed. Long-term drug therapy [id number] Z79.899 On fci MTX and LEF. No signs or symptoms of toxicity. Pt tells me she had elevation in enzymes a couple of years ago. . Continue to monitor labs q - 4 monthly for now. . Continue folate/blaze covorin. Also Plaquenil. She is up to date on eye exams. Moderate r ecurrent major depression [id number] F33.1 Under treatment. Covid restrictio ns, isolation exacerbati ng depression .No thoughts of self harm. [id number] Mauricio Martinez MD Rheumatol [facility], [address] [place] [address] 09/20/2020 09:07:55 09/23/2020 07:14:35 Rheumatoid arthritis [id number] M06.4 RA. Long hx erosive RA. Synovitis seems fairly well controlled on current meds.Joint sxs stable. ESR and CRP ~ stable or sl improved. Discussed options.Pr ior treatment included Enbrel, but had recurring skin infections . Had one course of Rituxan without much benefit. Has been on MTX + LEF since ~ 2007.She is opposed to the thought of trying additional Biologics. No change in meds today.Upda te labs 3 mo.RV 5 mo Just had first does Shingles vaccine (gave her fever ) Pain in right knee 05340 78084 74104 M25.561 Describes 2-3 d pain swelling R knee. S/P TKR yrs ago.As this was self limited, doubt infection, but if recurring issue, would nee eval by Ortho. Long-term drug therapy [id number] Z79.899 On electrotherapist MTX and LEF. No signs or symptoms of toxicity. Pt tells me she had elevation in enzymes a couple of years ago. . Continue to monitor labs q - 4 monthly for now. . Continue folate/blaze covorin. Also Plaquenil. She is up to date on eye exams. [id number] Mauricio Martinez MD Rheumatol [facility], [address] [place] [address] 01/17/2021 08:59:38 01/20/2021 06:39:35 Rheumatoid arthritis [id number] M06.4 RA. Long hx erosive RA. Synovitis seems fairly well controlled on current meds. Joint sxs stable. Chronicall y elevated ESR and CRP but stable. Discussed options. Prior treatment included Enbrel, but had recurring skin infections . Had one course of Rituxan without much benefit. Has been on MTX + LEF since ~ 2007. She is opposed to the thought of trying additional Biologics (Recurring skin infections while on Enbrel in remote past). . No change in meds today. Update labs 3 mo. RV 5 mo (Dr Rocha) Long-term drug therapy [id number] Z79.899 On fci MTX and LEF. No signs or symptoms of toxicity. Pt tells me she had elevation in enzymes a couple of years ago. . Continue to monitor labs q 3 - 4 monthly for now. . Continue folate/blaze covorin. Also Plaquenil. She is up to date on eye exams. [id number] Darion Rocha MD [facility] [place], [facility] [address] [facility] [place], [place] [address] 07/15/2021 08:54:37 07/16/2021 18:53:59 Rheumatoid arthritis [id number] M06.4 RA. Long hx erosive RA.Patient still symptomati c. Persistent ly elevated inflammato ry markers.Lo ng term complicati ons of of RA discussed with patient.Wi ll start Rinvoq. D/C leflunomid e once patient starts rinvoq. Try to wean other DMARDs after response to Rinvoq.Marivel goff previously failed Rituxan.Ch mal labs before next visit.COVI D booster discussed, patient to hold methotrexa te one week before booster.Tobias ray to get flu shot.Palomo nt states that she got pneumonia vaccine and Shingrix.R TC in 4 months or sooner if needed. Side effects of Rinvoq discussed with the patient, including but not limited to: increased incidence of usual infections , serious infections , thrombosis , including pulmonary, deep venous and arterial, malignanci es, allergic reaction, elevated Liver enzymes, lipid abnormalit ies, gastrointe stinal perforatio n, cytopenias . Patient counselled to stop the medication if fever or any other sign of infection and call his PCP or our office right away. Patient counselled to call her PCP or our office promptly or go to ER if acute abdominal symptoms. Patient instructed not to have any live vaccines. Patient verbalized understand ing. Long-term drug therapy [id number] Z79.899 On electrotherapist MTX and LEflunomid e and plaquenil. Continue folic acid.Monit or labs.Dereck nue to follow with ophthalmol ogy. Chronic renal failure 90 721358 N18.9 No more NSAIDs.Pat ient check with pcp on her renal failure. [id number] Darion Rocha MD Rheumatol [place], [address] [place] [address] 11/19/2021 09:39:50 11/19/2021 20:25:30 Rheumatoid arthritis [id number] M06.4 RA. Long hx erosive RA.Persist ently elevated inflammato ry markers.Lo ng term complicati ons of RA previously discussed with patient.Ri nvoq prescribed last visit but patient decided not to take it. She stated that she'd rather take the risk of the inflammati on than the side effects of the drug.Patiyani nt did not want to male any changes to her medication s.Prior treatment included Enbrel, but had recurring skin infections . Had one course of Rituxan without much benefit.Ch mal labs for disease activity and medication toxicity (standing orders).Tobias cory got the flu shot and the COVID booster.Tobias ray states that she got pneumonia vaccine and Shingrix.R TC in 4 months or sooner if needed. Long-term drug therapy [id number] Z79.899 On electrotherapist MTX and LEflunomid e and plaquenil. Continue folic acid.Monit or labs.Dereck nue to follow with ophthalmol oghillary.Patien t to hold methotrexa te and leflunomid e if fever or any sign of infection. Chronic renal failure 90 956901 N18.9 No more NSAIDs.Saw nephrology . [id number] Darion Rocha MD Rheumatol [place], [address] [place] [address] 03/25/2022 09:25:01 03/31/2022 11:10:45 Rheumatoid arthritis [id number] M06.4 RA. Long hx erosive RA.Persist ently elevated inflammato ry markers.Lo ng term complicati ons of RA discussed again with patient.Ri nvoq prescribed previously but patient decided not to take it. She stated that she'd rather take the risk of the inflammati on than the side effects of the drug.Other biological s (Il-6 inhibotrs. TNF inhibitors ) discussed with patient.Sh e state sthat she is seeing a lanolin plant operator and would prefer to wait to see if dietary changes can help.Palomo peralta did not want to make any changes to her medication s.She agreed on increading mtx to 22.5mg/wee k.Prior treatment included Enbrel, but had recurring skin infections . Had one course of Rituxan without much benefit.Ch mal labs for disease activity and medication toxicity (standing orders). mal SPAP and immunofixa tion.Palomo peralta got the flu shot and the COVID series. Counselled to get the 4th dose. Patient to hold methotrexa te one week after the injection. Patient states that she got pneumonia vaccine and Shingrix.R TC in 4 months or sooner if needed. Long-term drug therapy [id number] Z79.899 On fci MTX and Leflunomid e and plaquenil. Continue folic acid.Monit or labs.Dereck nue to follow with ophthalmol virgen.Patrick t to hold methotrexa te and leflunomid e if fever or any sign of infection. Chronic renal failure 90 354239 N18.9 No more NSAIDs.Lauren id nephrotoxi c agents.Saw nephrology .To be monitored by PCP> [id number] Darion Rocha MD Rheumatol [facility], [facility] [address] [place] [address] 04/16/2022 15:17:07 04/22/2022 13:06:50 Rheumatoid arthritis [id number] M06.4 RA. Long hx erosive RA.Persist ently elevated inflammato ry markers.Lo ng term complicati ons of RA previously discussed again with patient.Long ving a flare now. Patient states that she is ready to start biological s.Did not want prednisone for her flare.Will start Humira.TB quant negative in 07/22. Prior treatment included Enbrel, but had recurring skin infections . Had one course of Rituxan without much benefit. mal labs for disease activity and medication toxicity (standing orders).St op plaquenil when she starts Humira.Marivel goff got the flu shot and the COVID series. Counselled to get the 4th dose. Patient to hold methotrexa te one week after the injection. Patient states that she got pneumonia vaccine and Shingrix.K eep next appointmen t in July. Side effects of Humira discussed with the patient, including but not limited to: injection site reactions, increased incidence of usual infections , serious infections (like TB), malignanci es, allergic reaction, new onset psoriasis, demyelinat ing disease, heart failure, lupus-like syndrome, cytopenias . Patient counselled to stop the medication if fever or any other sign of infection and call her PCP or our office right away. Patient instructed not to have any live vaccines. Patient verbalized understand ing. Long-term drug therapy [id number] Z79.899 On fci MTX and Leflunomid e and plaquenil. Continue folic acid.Monit or labs.Dereck nue to follow with ophthalmol oghillary.Patien t to hold methotrexa te and leflunomid e if fever or any sign of infection. Chronic renal failure 90 754265 N18.9 No more NSAIDs.Lauren id nephrotoxi c agents.Saw nephrology .To be monitored by PCP. [id number] Lu De León LPN Rheumatol [place], [address] [place] [address] 04/29/2022 13:30:20 05/20/2022 11:52:16 Inflammatory polyarthropathy [id number] M06.4 [id number] Darion Rocha MD Rheumatol [place], [address] [place] [address] 07/01/2022 09:19:22 07/09/2022 09:46:16 Rheumatoid arthritis 99800725 M06.4 RA. Long hx erosive RA.Persist ently elevated inflammato ry markers.Lo ng term complicati ons of RA previously discussed again with patient. 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 MTX stopped.On prednisone and leflunomid e for now.Contin ue and reassess in 6 weeks to decide on treatment. Get hospital records.Ch mal labs before next visit. TB quant negative in 07/22. Prior treatment included Enbrel, but had recurring skin infections . Had one course of Rituxan without much benefit. Patient got the flu shot and the COVID series.Marivel goff states that she got pneumonia vaccine and Shingrix. 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 Will get records to decide of further treatment. [id number] Darion Rocha MD Rheumatol ogy, [facility] [address] [facility] [place] [address] 08/05/2022 09:49:18 08/06/2022 09:35:02 Rheumatoid arthritis [id number] M06.4 RA. Long hx erosive RA.Persist ently elevated inflammato ry markers.Lo ng term complicati ons of RA previously discussed again with patient. 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 MTX stopped.Af ter reviewing hospital records, Humira was also a possible culprit.On prednisone and leflunomid e for now.Contin ue to wean off prednisone and continue leflunomid e for now.Will see how patient will do when she is off prednisone and reassess treatment. Check labs before next visit.RTC in 3 months or sooner if needed. 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 After reviewing hospital records, Humira was also a possible culprit.On steroids.F ollowing with pulmonary. Wean steroids as per the plan. Health Concerns Section Related Observation LastModified by Organization Detai ls LastModified Time None Recorded Concern Status LastModified by Organization Details LastModified Time None Recorded Advance Directives Directive None Recorded Payers Encounter Date Sequence Insurance Name Policy Number Policy Wright Covered Member ID Wright Member ID Guarantor Name 03/25/2022 1 [place]: [facility] Sharad Al [id number] Sharad Al 03/25/2022 2 [place] [facility] Sharad Al [id number] Sharad Al 04/16/2022 1 MEDICARE B-[place]: [facility] Sharad Al [id number] Sharad Marmolejo Fidelshelbi 04/16/2022 2 [place] [facility] Sharad Al [id number] Sharad Al 04/29/2022 1 MEDICARE B-[place]: [facility] Sharad Al [id number] Sharad Marmolejo Fidelshelbi 04/29/2022 2 [place] [facility] Sharad Al [id number] Sharad Al 07/01/2022 1 MEDICARE B-[place]: [facility] Sharad Al [id number] Sharad Marmolejo Fidelshelbi 07/01/2022 2 [place] [facility] Sharad Al [id number] Sharad Al 08/05/2022 1 [place] [employer] [facility] Sharad Al [id number] Sharad Al 08/05/2022 2 [place] [facility] Sharad Al [id number] Sharad Al Notes Date Note Type Note Provider Name and Address Organization Details Recorded Time 03/25/2022 text/html Patient is 60 y old female following-up on rheumatoid arthritis. Patient states that she feels good. No joint pain, no swelling. She states that she seems to be doing very good. She denies morning stiffness.She was previously prescribed rinvoq as her inflamamtory markers are elevated but she did not start Rinvoq, she did not want to take the side effects. Patient has a long standing history of erosive rheumatoid arthritis. She is on methotrexate 20 mg weekly, leflunomide 20 mg daily, and Plaquenil 200 twice a day. Patient is tolerating the medications, no side effects reported.She takes tylenol and tramadol and this helps. Labs reviewed. Kathy Rocha MD [address] [place] [address], [phone], [facility] 03/25/2022 10:06:53 04/16/2022 text/html Patient is 60 y old female following-up on rheumatoid arthritis. Patient states that she feels bad, she is having a flare in feet and knees and left hand.She is taking tylenol tid and tramadol. Patient states today that she is ready to start a biological. She was previously prescribed rinvoq as her inflammatory markers are elevated but she did not start Rinvoq, she did not want to take the side effects. Patient has a long standing history of erosive rheumatoid arthritis. She is on methotrexate 22.5 mg weekly, leflunomide 20 mg daily, and Plaquenil 200 twice a day. Patient is tolerating the medications, no side effects reported.She takes tylenol and tramadol and this helps. Labs reviewed. Kathy Rocha MD [address] [place] [address], [phone], [facility] 04/16/2022 16:49:31 07/01/2022 text/html Patient is 61 y old female following-up on rheumatoid arthritis. 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 She is on Atovaquone and prednisone 50 mg and tapering dose and O2. She is following with pulmonary [place]. No joint pain. She has swelling in her feet. She is taking leflunomide. Humira on hold as she is on prednisone.She took 4 doses of Humira and she has not had it since June 09. She was previously prescribed rinvoq as her inflammatory markers are elevated but she did not start Rinvoq, she did not want to take the side effects. Patient has a long standing history of erosive rheumatoid arthritis. She is on methotrexate 22.5 mg weekly, leflunomide 20 mg daily, and Plaquenil 200 twice a day. Patient is tolerating the medications, no side effects reported.She takes tylenol and tramadol and this helps. No recent reviewed. Kathy Rocha MD [address] [place] [address], [phone], [facility] 08/05/2022 10:16:02 08/05/2022 text/html Patient is 61 y old female following-up on rheumatoid arthritis. Patient states that she feels pretty good.No pain,no swelling.Had a CT scan in July which showed resolution of the ground glass opacities.Off oxygen. No cough, no SOB. She is currently on prednisone 20 mg , she will go down to 10 mg next week for 2 weeks.She is also on leflunomide, patient is tolerating the medications, no side effects reported. Labs reviewed. Previous visit on 07/01/22:Patient is 61 y old female following-up on rheumatoid arthritis. 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 She is on Atovaquone and prednisone 50 mg and tapering dose and O2. She is following with pulmonary [facility]. No joint pain. She has swelling in her feet. She is taking leflunomide. Humira on hold as she is on prednisone.She took 4 doses of Humira and she has not had it since June 09. She was previously prescribed rinvoq as her inflammatory markers are elevated but she did not start Rinvoq, she did not want to take the side effects. Patient has a long standing history of erosive rheumatoid arthritis. She is on methotrexate 22.5 mg weekly, leflunomide 20 mg daily, and Plaquenil 200 twice a day. Patient is tolerating the medications, no side effects reported.She takes tylenol and tramadol and this helps. No recent reviewed. Kathy Rocha MD [address] [place] [address], [phone], [facility] 08/05/2022 10:14:37 OBGyn Episode No OBEpisode recorded.
[2025-01-30 11:47] LABS: MANUAL DIFF FLAG NO
[2025-01-30 11:50] LABS: Basophils Absolute Auto 0.1 X10*3/uL (0.0-0.2); Basophils Percent Auto 1.2 % (0-2); Eosinophils Absolute Auto 0.7 X10*3/uL (0.0-0.4); Eosinophils Percent Auto 5.9 % (0-4); Hematocrit 39.4 % (37.0-47.0); Hemoglobin 12.7 g/dl (12.0-16.0); Imm Gran Abs Auto 0.05 X10*3/uL (0.00-0.03); Imm Gran Pct Auto 0.4 % (0.0-0.4); Lymphocytes Absolute Auto 3.6 X10*3/uL (1.2-4.9); Lymphocytes Percent Auto 31.2 % (20-40); Mean Corpuscular HGB Conc 32.2 g/dl (31.0-35.0); Mean Corpuscular Hemoglobin 27.7 pg (27.0-33.0); Mean Corpuscular Volume 85.8 fL (80.0-98.0); Mean Platelet Volume 9.5 fL (9.4-12.3); Monocytes Absolute Auto 1.1 X10*3/uL (0.1-1.2); Monocytes Percent Auto 9.9 % (2-11); Neutrophils Absolute Auto 5.9 x10*3/uL (2.0-8.3); Neutrophils Percent Auto 51.4 % (45-73); Platelet Count 263 X10*3/uL (160-400); Red Blood Count 4.59 X10*6/uL (4.20-5.50); Red Cell Distribution Width 15.7 % (11.0-16.0); White Blood Count 11.5 X10*3/uL (4.8-10.8)
[2025-01-30 12:03] LABS: Alanine Aminotransferase 11 U/L (0-31); Albumin Level 3.6 g/dL (3.5-5.0); Alkaline Phosphatase 97 U/L (39-117); Anion Gap 11 (12-20); Aspartate Amino Transferase 20 U/L (5-31); Bilirubin Total 0.3 mg/dL (0.0-1.0); Blood Urea Nitrogen 20 mg/dL (9-16); C Reactive Protein 5.23 mg/dL (< or = 0.50); Calcium 9.4 mg/dL (8.4-10.2); Carbon Dioxide 23 mmol/L (22-29); Chloride 108 mmol/L (96-108); Estimated Glomerular Filt Rate > 60; Glucose Random 92 mg/dL (60-115); Potassium 4.6 mmol/L (3.3-5.1); Sodium 137 mmol/L (135-145); Total Protein 7.1 g/dL (6.5-8.0)
[2025-01-30 12:32] LABS: Erythrocyte Sedimentation Rate 64 MM/HR (0-20)
== END 2025-01-30 09:45 | disposition home or self-care (01) ==
LOC: HO.10HDL 09:44
PROVIDERS: Visit Provider Student in an Organized Health Care Education/Training Program
DX: M06.00 Rheumatoid arthritis without rheumatoid factor, unspecified site (principal)
CPT/HCPCS: 36415; 80053; 85025; 85652; 86140

== ENCOUNTER 2025-01-31 09:22 | Outpatient (AMB) | payer OTHER, SELFPAY ==
--- NOTE | 2025-01-31 09:24 | A.OFFVIS_ITS ---
Vital Signs 01/31/25 09:35 Height 5 ft 3 in Weight 236 lb 15.951 oz BMI 42.0 BP 162/100 H Blood Pressure Location Lt brachial Position Sitting Pulse 90 Pulse Source Pulse Oximeter Pulse Oximetry (%) 95 Oxygen Delivery Method Room Air Intake Visit Reasons: RA Intake Note: Patient presents today for RA. Allergies adhesive tape Adverse Reaction (Unknown, Verified 10/02/24 10:36) Rash lactose Adverse Reaction (Unknown, Verified 10/02/24 10:36) Unknown Sulfa (Sulfonamide Antibiotics) Adverse Reaction (Unknown, Verified 10/02/24 10:36) Unknown Medication List - Last Reconciled 01/31/25 by Orquidea David MD [arm brace 16 brace Wear nightly and as much as possible throughout the day] diltiazem HCl CD 240 mg PO DAILY finger splint wear nightly & as much as possible throughout the day fluoxetine 80 mg PO DAILY gabapentin 300 mg PO QID hydrochlorothiazide 25 mg PO DAILY leflunomide 20 mg PO DAILY lorazepam 0.5 mg PO DAILY metoprolol succinate ER 12.5 mg PO DAILY omeprazole 20 mg PO BID PRN oxybutynin chloride 2 tablets in AM, 1 tablet in PM orally; tramadol 50 - 100 mg PO Q6H PRN HPI Comments Details: Patient is a 64 y.o. 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 Valles. At that time she was feeling the same overall with no evidence of active synovitis. Plan was to continue leflunomide 20 mg. Today patient complains of bilateral knee pain left worse than right and intermittent hand pain. Rheumatologic History: Seronegative Onset around 2005. started on methotrexate, hydroxychlooquine and eventually leflunomide added. Humira added early 2021, hydroxychloroquine stopped. Humira stopped 06/2022. Hx bilateral TKR &THR [id number]/2022 hosp with resp failure, possible due to mtx , treated with IV and PO corticosteroids. leflunomide restarted. 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 Hypertension CKD (chronic kidney disease) Surgical History History of carpal tunnel surgery Status post fusion of wrist H/O bilateral hip replacements History of total knee replacement (TKR) Family History Mother Alzheimer's dementia with mood disturbance Hypertension Breast cancer Father Hypertension Type 2 diabetes mellitus Stroke Myocardial infarction Kidney disease Brother Colon cancer Sister Lymphoma Social History Alcohol intake: current Alcohol intake frequency: holidays/special occasions only Patient Tobacco Use Status: Former Tobacco user Second Hand Smoke Exposure: No Review of Systems Const Details: Review of Systems Constitutional: Denies fever, chills, weight loss ENT: Denies vision changes, eye pain or eye redness, dental caries, dry mouth GI: Denies nausea, vomiting, diarrhea, abdominal pain, change in BM Pulm: Denies SOB, BENAVIDES, hemoptysis, wheezing Cards: Denies chest pain, palpitations Skin: Denies Raynaud's, rash, nail changes, photosensitivity, ANIMAL LABORATORY HELPER: Denies headaches, weakness, paresthesias, recurrent falls MSK: as per HPI All other systems reviewed and are unremarkable except noted above Physical Exam Vital Signs: Last Vital Signs Pulse 90 01/31/25 09:35 BP 162/100 H 01/31/25 09:35 Pulse Ox 95 01/31/25 09:35 Oxygen Delivery Method Room Air 01/31/25 09:35 BMI result Body Mass Index 42.0 Vital signs reviewed Physical Examination CONSTITUITIONAL Patient alert and cooperative. Well appearing and in no apparent painful distress HEENT Conjunctiva and sclera clear. ?Pupils equal round and reactive to light. ?No lymphadenopathy. ?Poor dentition CHEST/RESPIRATORY SYSTEM Normal respiratory effort and able to speak in complete sentences. ?Clear to auscultation bilaterally. ?No crackles, rales, rhonchi, wheezes heard. CARDIAC SYSTEM Regular rate and rhythm. ?S1 and S2 heard no murmurs. ?Radial pulses intact bilaterally MSK Hands: ?Able to make a fist bilaterally. Right hand with ulnar deviation at the level of the MCPs and prominent synovial hypertrophy involving the 2nd to 4th MCP. [place]-neck deformities noted to the third digit. Right hand with ulnar deviation as well and prominent synovial hypertrophy involving the 2nd to 4th MCPs. Wrists: Right wrist with surgical scar overlying it and prominent synovial hypertrophy. Wrists is fixed. Left wrist with prominent synovial hypertrophy as well with 5-10 degrees of flexion-extension motion noted. Elbows: Full range of motion without pain. No tenderness, weakness, swelling, increased warmth or erythema. Shoulders: Full range of motion without pain. No tenderness, weakness, swelling, increased warmth or erythema. Knees: ?Full range of motion. ?No tenderness, swelling, increased warmth or erythema.?No effusion or crepitations Ankles: Full range of motion. ?No tenderness, swelling, increased warmth or erythema.? Feet: ?Negative squeeze test. ?No tenderness to palpation or swelling of the MTPs. Tender points:?No tenderness to palpation of the bilateral trapezius, supraspinatus, greater trochanters, anterior costochondral junctions, bilateral gluteal areas, bilateral suboccipital muscle insertions SKIN Skin intact without rashes. Results Reviewed Results Reviewed: Laboratory Tests 02/23/23 01/30/25 12:14 09:50 WBC 11.5 H RBC 4.59 Hgb 12.7 Hct 39.4 Plt Count 263 ESR 64 H Sodium 137 Potassium 4.6 Chloride 108 Carbon Dioxide 23 BUN 20 H Creatinine 0.86 AST 20 ALT 11 Alkaline Phosphatase 97 C-Reactive Protein 1.99 H 5.23 H Assessment & Plan Assessment & Plan (1) Seronegative rheumatoid arthritis: Comment: Onset around 2005. started on methotrexate, hydroxychlooquine and eventually leflunomide added. Humira added early 2021, hydroxychloroquine stopped. Humira stopped 06/2022. Hx bilateral TKR &THR [id number]/2022 hosp with resp failure, possible due to mtx , treated with IV and PO corticosteroids. leflunomide restarted. 08/2022 Code(s): M06.00 - Rheumatoid arthritis without rheumatoid factor, unspecified site Category: Medical Plan: #Seronegative Erosive and deforming RA Patient is a 64-year-old female with seronegative erosive and deforming rheumatoid arthritis here today for follow up. No evidence of active synovitis on examination. Patient does report intermittent stiffness to her hands and she does have elevated inflammatory markers today. But I do not think this is related to her rheumatoid arthritis. She has poor dentition and elevated white count and so the elevated CRP may be related to that. I told her to follow up with her primary if she starts to develop any fevers. Of note patient has elevated blood pressure today. Patient states that she does not consistently take her medication I informed her of the importance to take her medication consistently as this could lead to stroke, heart attack and other life-threatening illnesses. Plan - Continue leflunomide 20mg daily - RTC 4 months - Labs before visit: CBC, CMP, ESR, CRP, hepatitis panel, T spot (2) Osteoarthritis of knees, bilateral: Code(s): M17.0 - Bilateral primary osteoarthritis of knee Qualifiers: Osteoarthritis type: primary Qualified Code(s): M17.0 - Bilateral primary osteoarthritis of knee Plan: #Bilateral Knee OA Patient with bilateral knee osteoarthritis status post bilateral knee replacement. Currently complaining of intermittent pain to her knees especially the right knee. Told patient that she will need to follow up with her orthopedic surgeon. We will check x-rays today. Plan - Follow up wiht ortho - XR Bilateral knees (3) Encounter for monitoring leflunomide therapy: Code(s): Z51.81 - Encounter for therapeutic drug level monitoring; Z79.69 - skilled nursing (current) use of other immunomodulators and immunosuppressants Plan: #Long-term leflunomide Discussed with patient the benefits and risks of leflunomide for managing the rheumatic condition Benefits include: - Reduced pain, maintenance of remission and reduction of flares Risks include: - GI upset especially diarrhea, skin rash, cytopenias, hepatotoxicity, weight loss, neuropathy Leflunomide is highly teratogenic. ?Has a very long half-life. ?Needs cholestyramine washout if there is desire for Initiation: ?CBC, BMP, LFTs, hepatitis-B and C serologies every 2-4 weeks for 3 months Monitoring: ?CBC, BMP, LFTs, hepatitis B and C serologies Plan I spent 30 minutes reviewing the record and labs, taking a history, examining the patient, discussing the treatment plan, ordering diagnostic work up and documenting in the medical record Orders: Orders XR knee RT 3V Today M25.561 - Pain in right knee, M25.562 - Pain in left knee XR knee LT 3V Today M25.561 - Pain in right knee, M25.562 - Pain in left knee Complete Blood Count Auto Diff 4 Months M06.00 - Rheumatoid arthritis without rheumatoid factor, unspecified site, Z51.81 - Encounter for therapeutic drug level monitoring, Z79.69 - skilled nursing (current) use of other immunomodulators and immunosuppressants C Reactive Protein 4 Months M06.00 - Rheumatoid arthritis without rheumatoid factor, unspecified site, Z51.81 - Encounter for therapeutic drug level monitoring, Z79.69 - plant operations manager (current) use of other immunomodulators and immunosuppressants Erythrocyte Sedimentation Rate 4 Months M06.00 - Rheumatoid arthritis without rheumatoid factor, unspecified site, Z51.81 - Encounter for therapeutic drug level monitoring, Z79.69 - skilled nursing (current) use of other immunomodulators and immunosuppressants Hepatitis A,B,C Profile 4 Months M06.00 - Rheumatoid arthritis without rheumatoid factor, unspecified site, Z51.81 - Encounter for therapeutic drug level monitoring, Z79.69 - skilled nursing (current) use of other immunomodulators and immunosuppressants T Spot TB 4 Months M06.00 - Rheumatoid arthritis without rheumatoid factor, unspecified site, Z51.81 - Encounter for therapeutic drug level monitoring, Z79.69 - skilled nursing (current) use of other immunomodulators and immunosuppressants Comprehensive Met. Panel 4 Months M06.00 - Rheumatoid arthritis without rheumatoid factor, unspecified site, Z51.81 - Encounter for therapeutic drug level monitoring, Z79.69 - plant operations manager (current) use of other immunomodulators and immunosuppressants Referrals Orthopedics Referral M25.561 - Pain in right knee, M25.562 - Pain in left knee Medications: Refilled leflunomide 20 mg PO DAILY 90 tabs 1RF M06.00 - Rheumatoid arthritis without rheumatoid factor, unspecified site Coding Level of Care Code Est Pt Level 4 (98585) Complex EM visit Add On G2211 Diagnoses Seronegative rheumatoid arthritis M06.00 Primary osteoarthritis of both knees M17.0 Osteoarthritis type: primary Encounter for monitoring leflunomide therapy Z51.81; Z79.69
[2025-01-31 09:35] VITALS: BP 162/100; PULSE 90; O2SAT 95; BMI 42.0
--- OUTSIDE RECORDS SUMMARY | 2025-01-31 10:27 | XMS_ITS | Referral Summary ---
Author Organization [facility] Address [address] [id number] Care Team Providers Care Quilting Supervisor Name Role Phone Brock Shaw DO Primary Care Provider [phone] Allergies Active Allergy Reactions Criticality Noted Date [...] Plan of Treatment Not on file Insurance [place] [address] Care Teams Quilting Supervisor Relationship Specialty Start Date End Date Brock Shaw DO [address] [place] [address] PCP - General 12/27/23
--- OUTSIDE RECORDS SUMMARY | 2025-01-31 10:27 | XMS_ITS | Data Portability ---
Author Organization [facility], , [facility] Address [address] [place] [address] Care Team Providers Care Foreign Food Specialty Cook Name Role Phone DRINKERMARIA ELENA OTHER Assessment No assessment recorded. Plan of Treatment Reminders Order Date Submit Date Provider Last Modified By Organization Details Last Modified Time Details Appointments None recorded. Lab erythrocyte sedimentati on rate by westergren method 2021 [facility], [address] [place] [address], [address], 15:16:11 C-reactive protein, quantitativ e, serum or plasma 2021 [facility], [address] [place] [address], [address], 16:00:35 CMP, serum or plasma 2021 [facility], [address] [place] [address], [address], 11:18:40 CBC 2021 [facility], [address] [place] [address], [address], 12:01:10 Referral None recorded. Procedures None recorded. Surgeries None recorded. Imaging None recorded. Medication Orders Humira(CF) Pen 40 mg/0.4 mL subcutaneou s kit 2021 022 [email or web address] 4 Not available 09:23:58 Humira(CF) Pen 40 mg/0.4 mL subcutaneou s kit 2021 022 ARISTIDES [facility], [address], [place], [address], 2 16:46:30 methotrexat e sodium 2.5 mg tablet 2021 022 [email or web address] 4 [facility], [address], [place], [address], 09:24:35 Patient TargetsNo targets recorded. Patient InstructionsNo instructions recorded. Reason for Referral None Reported. Results Created Date Observation Date Name Description Value Unit Range Abnormal Flag Note LastModifiedBy Organization Detail LastModifiedTime 05/19/2005/19/2022 CBC WBC 5.00 K/??L 3.98-1 0.04 Not Available [address], [address], 05/19/2022 12:22:07 05/19/20 22 05/19/2022 CBC RBC 4.17 M/??L 3.93-5 .22 Not Available [address], [address], 05/19/2022 12:22:07 05/19/20 22 05/19/2022 CBC HGB 12.4 g/dL 11.2-1 5.7 Not Available [address], [address], 05/19/2022 12:22:07 05/19/20 22 05/19/2022 CBC HCT 39.2 % 34.1-4 4.9 Not Available [address], [address], 05/19/2022 12:22:07 05/19/20 22 05/19/2022 CBC MCV 94.0 fL 79.4-9 4.8 Not Available [address], [address], 05/19/2022 12:22:07 05/19/20 22 05/19/2022 CBC MCH 29.7 pg 25.6-3 2.2 Not Available [address], [address], 05/19/2022 12:22:07 05/19/20 22 05/19/2022 CBC MCHC 31.6 g/dL 32.2-3 5.5 low Not Available [address], [address], 05/19/2022 12:22:07 05/19/20 22 05/19/2022 CBC plt 240 K/??L 182-36 9 Not Available [address], [address], 05/19/2022 12:22:07 05/19/20 22 05/19/2022 CBC MPV 9.3 fL 9.4-12 .3 low Not Available [address], [address], 05/19/2022 12:22:07 05/19/20 22 05/19/2022 CBC neut% 37.2 % 34.0-7 1.1 Not Available [address], [address], 05/19/2022 12:22:07 05/19/20 22 05/19/2022 CBC neut# 1.86 1.56-6 .13 Not Available [address], [address], 05/19/2022 12:22:07 05/19/20 22 05/19/2022 CBC lymph % 36.4 % 19.3-5 1.7 Not Available [address], [address], 05/19/2022 12:22:07 05/19/20 22 05/19/2022 CBC lymph # 1.82 K/??L 1.18-3 .74 Not Available [address], [address], 05/19/2022 12:22:07 05/19/20 22 05/19/2022 CBC mono% 14.4 % 4.7-12 .5 high Not Available [address], [address], 05/19/2022 12:22:07 05/19/20 22 05/19/2022 CBC mono# 0.72 0.24-0 .56 high Not Available [address], [address], 05/19/2022 12:22:07 05/19/20 22 05/19/2022 CBC eo% 9.8 % 0.7-5. 8 high Not Available [address], [address], 05/19/2022 12:22:07 05/19/20 22 05/19/2022 CBC eo# 0.49 0.04-0 .36 high Not Available [address], [address], 05/19/2022 12:22:07 05/19/20 22 05/19/2022 CBC baso% 2.0 % 0.1-1. 2 high Not Available [address], [address], 05/19/2022 12:22:07 05/19/20 22 05/19/2022 CBC baso# 0.10 0.00-0 .08 high Not Available [address], [address], 05/19/2022 12:22:07 05/19/20 22 05/19/2022 CBC RDW-CV 17.9 % 11.7-1 4.4 high Not Available [address], [address], 05/19/2022 12:22:07 05/19/20 22 05/19/2022 CBC Ig% 0.200 % 0.000- 1.500 Ig % >0.5 Indic ates possi ble Left Shift Not Available [address], [address], 05/19/2022 12:22:07 05/19/20 22 05/19/2022 CBC Ig# 0.010 0.000- 0.093 Not Available [address], [address], 05/19/2022 12:22:07 05/19/20 22 05/19/2022 CBC NRBC% 0.0 % 0.0-0. 2 Not Available [address], [address], 05/19/2022 12:22:07 05/19/20 22 05/19/2022 CBC NRBC# 0.000 0.000- 0.012 Not Available [address], [address], 05/19/2022 12:22:07 05/19/20 22 05/19/2022 ESR sed rate 37.0 0.0-15 .0 high Not Available [address], [address], 05/19/2022 15:13:55 05/19/20 22 05/20/2022 COMP. METAB OLIC PANEL glucose 130 mg/dL 70-100 high Not Available [address], [address], 05/20/2022 10:31:22 05/19/20 22 05/20/2022 COMP. METAB OLIC PANEL BUN 18 mg/dL 7-18 Not Available [address], [address], 05/20/2022 10:31:22 05/19/20 22 05/20/2022 COMP. METAB OLIC PANEL creatinine 1.1 mg/dL 0.8-1. 3 Not Available [address], [address], 05/20/2022 10:31:22 05/19/20 22 05/20/2022 COMP. METAB OLIC PANEL B/C 16.4 ratio Not Available [address], [address], 05/20/2022 10:31:22 05/19/20 22 05/20/2022 COMP. METAB [...] be used in pregn wilbur. Not Available [address], [address], 05/20/2022 10:31:22 05/19/20 22 05/20/2022 COMP. METAB OLIC PANEL sodium 142 mmol/ L 136-14 5 Not Available [address], [address], 05/20/2022 10:31:22 05/19/20 22 05/20/2022 COMP. METAB OLIC PANEL potassium 4.6 mmol/ L 3.5-5. 1 Not Available [address], [address], 05/20/2022 10:31:22 05/19/20 22 05/20/2022 COMP. METAB OLIC PANEL chloride 105 mmol/ L 96-107 Not Available [address], [address], 05/20/2022 10:31:22 05/19/20 22 05/20/2022 COMP. METAB OLIC PANEL anion gap 14.1 5.0-15 .0 Not Available [address], [address], 05/20/2022 10:31:22 05/19/20 22 05/20/2022 COMP. METAB OLIC PANEL CO2 23 mmol/ L 21-32 Not Available [address], [address], 05/20/2022 10:31:22 05/19/20 22 05/20/2022 COMP. METAB OLIC PANEL calcium 9.0 mg/dL 8.5-10 .3 Not Available [address], [address], 05/20/2022 10:31:22 05/19/20 22 05/20/2022 COMP. METAB OLIC PANEL total protein 6.9 g/dL 6.4-8. 2 Not Available [address], [address], 05/20/2022 10:31:22 05/19/20 22 05/20/2022 COMP. METAB OLIC PANEL albumin 3.5 g/dL 3.4-5. 0 Not Available [address], [address], 05/20/2022 10:31:22 05/19/20 22 05/20/2022 COMP. METAB OLIC PANEL globulin 3.4 g/dL Not Available [address], [address], 05/20/2022 10:31:22 05/19/20 22 05/20/2022 COMP. METAB OLIC PANEL A/G 1.0 ratio 0.8-2. 0 Not Available [address], [address], 05/20/2022 10:31:22 05/19/20 22 05/20/2022 COMP. METAB OLIC PANEL total bilirubin 0.30 mg/dL 0.00-1 .00 Not Available [address], [address], 05/20/2022 10:31:22 05/19/20 22 05/20/2022 COMP. METAB OLIC PANEL AST 43 U/L 0-37 high Not Available [address], [address], 05/20/2022 10:31:22 05/19/20 22 05/20/2022 COMP. METAB OLIC PANEL ALT 54 U/L 6-63 Not Available [address], [address], 05/20/2022 10:31:22 05/19/20 22 05/20/2022 COMP. METAB OLIC PANEL alk. phos. 81 U/L 50-136 Not Available [address], [address], 05/20/2022 10:31:22 05/19/20 22 05/20/2022 C-BRITNEY CTIVE PROTE IN-QU ANTIT ATIVE C-reactive protein -quant <2.0 mg/L 0.0-9. 0 < CRP VERIF IED Not Available [address], [address], 05/20/2022 13:28:50 05/19/20 22 05/21/2022 PROTE IN, TOTAL AND PROTE IN ELECT ROPHO RESIS protein, total 6.6 g/dL 6.1-8. 1 normal Not Available [employer] [facility] [address], [address], 05/21/2022 22:16:40 05/19/20 22 05/21/2022 PROTE IN, TOTAL AND PROTE IN ELECT ROPHO RESIS albumin 3.8 g/dL 3.8-4. 8 normal Not Available [facility] [address], [address], 05/21/2022 22:16:40 05/19/20 22 05/21/2022 PROTE IN, TOTAL AND PROTE IN ELECT ROPHO RESIS alpha 1 globulin 0.3 g/dL 0.2-0. 3 normal Not Available [facility] [address], [place], [address], 05/21/2022 22:16:40 05/19/20 22 05/21/2022 PROTE IN, TOTAL AND PROTE IN ELECT ROPHO RESIS alpha 2 globulin 0.8 g/dL 0.5-0. 9 normal Not Available [facility] [address], [place], [address], 05/21/2022 22:16:40 05/19/20 22 05/21/2022 PROTE IN, TOTAL AND PROTE IN ELECT ROPHO RESIS beta 1 globulin 0.5 g/dL 0.4-0. 6 normal Not Available [facility] [address], [place], [address], 05/21/2022 22:16:40 05/19/20 22 05/21/2022 PROTE IN, TOTAL AND PROTE IN ELECT ROPHO RESIS beta 2 globulin 0.5 g/dL 0.2-0. 5 normal Not Available [facility] [address], [place], [address], 05/21/2022 22:16:40 05/19/20 22 05/21/2022 PROTE IN, TOTAL AND PROTE IN ELECT ROPHO RESIS gamma globulin 0.7 g/dL 0.8-1. 7 low Not Available [facility] [address], [place], [address], 05/21/2022 22:16:40 05/19/20 22 05/21/2022 PROTE IN, TOTAL AND PROTE IN ELECT ROPHO RESIS interpretati on Consi stent with hypog ammag lobul inemi a. Serum free light chain s or urine immun ofixa tion shoul d be consi dered if plasm a cell dyscr asias are a possi ble clini salvador diagn osis. Not Available [facility] [address], [place], [address], 05/21/2022 22:16:40 05/19/20 22 05/21/2022 IMMUN OFIXA TION, SERUM eugene interpretati on No monoc lonal prote ins detec asif. Not Available [facility] [address], [place], [address], 05/21/2022 22:16:41 07/28/20 22 07/28/2022 COMP. METAB OLIC PANEL glucose 116 mg/dL 70-100 high Not Available [address], [address], 07/28/2022 11:18:40 07/28/20 22 07/28/2022 COMP. METAB OLIC PANEL BUN 22 mg/dL 7-18 high Not Available [address], [address], 07/28/2022 11:18:40 07/28/20 22 07/28/2022 COMP. METAB OLIC PANEL creatinine 1.2 mg/dL 0.8-1. 3 Not Available [address], [address], 07/28/2022 11:18:40 07/28/20 22 07/28/2022 COMP. METAB OLIC PANEL B/C 18.3 ratio Not Available [address], [address], 07/28/2022 11:18:40 07/28/20 22 07/28/2022 COMP. METAB [...] be used in pregn wilbur. Not Available [address], [address], 07/28/2022 11:18:40 07/28/20 22 07/28/2022 COMP. METAB OLIC PANEL sodium 141 mmol/ L 136-14 5 Not Available [address], [address], 07/28/2022 11:18:40 07/28/20 22 07/28/2022 COMP. METAB OLIC PANEL potassium 4.8 mmol/ L 3.5-5. 1 HEMS= Speci men Sligh tly Hemol yzed. Chem Resul ts may be effec asif. Not Available [address], [address], 07/28/2022 11:18:40 07/28/20 22 07/28/2022 COMP. METAB OLIC PANEL chloride 102 mmol/ L 96-107 Not Available [address], [address], 07/28/2022 11:18:40 07/28/20 22 07/28/2022 COMP. METAB OLIC PANEL anion gap 7.0 5.0-15 .0 Not Available [address], [address], 07/28/2022 11:18:40 07/28/20 22 07/28/2022 COMP. METAB OLIC PANEL CO2 32 mmol/ L 21-32 Not Available [address], [address], 07/28/2022 11:18:40 07/28/20 22 07/28/2022 COMP. METAB OLIC PANEL calcium 9.4 mg/dL 8.5-10 .3 Not Available [address], [address], 07/28/2022 11:18:40 07/28/20 22 07/28/2022 COMP. METAB OLIC PANEL total protein 6.9 g/dL 6.4-8. 2 Not Available [address], [address], 07/28/2022 11:18:40 07/28/20 22 07/28/2022 COMP. METAB OLIC PANEL albumin 3.4 g/dL 3.4-5. 0 Not Available [address], [address], 07/28/2022 11:18:40 07/28/20 22 07/28/2022 COMP. METAB OLIC PANEL globulin 3.5 g/dL Not Available [address], [address], 07/28/2022 11:18:40 07/28/20 22 07/28/2022 COMP. METAB OLIC PANEL A/G 1.0 ratio 0.8-2. 0 Not Available [address], [address], 07/28/2022 11:18:40 07/28/20 22 07/28/2022 COMP. METAB OLIC PANEL total bilirubin 0.50 mg/dL 0.00-1 .00 Not Available [address], [address], 07/28/2022 11:18:40 07/28/20 22 07/28/2022 COMP. METAB OLIC PANEL AST 13 U/L 0-37 Not Available [address], [address], 07/28/2022 11:18:40 07/28/20 22 07/28/2022 COMP. METAB OLIC PANEL ALT 29 U/L 6-63 Not Available [address], [address], 07/28/2022 11:18:40 07/28/20 22 07/28/2022 COMP. METAB OLIC PANEL alk. phos. 62 U/L 50-136 Not Available [address], [address], 07/28/2022 11:18:40 07/28/20 22 07/28/2022 MANUA L DIFFE ELLEN AL segs 39 % 34-71 Not Available [address], [address], 07/28/2022 12:00:30 07/28/20 22 07/28/2022 MANUA L DIFFE RENTI AL lymph 49 % 19-53 Not Available [address], [address], 07/28/2022 12:00:30 07/28/20 22 07/28/2022 MANUA L DIFFE RENTI AL mono 6 % 4-12 Not Available [address], [address], 07/28/2022 12:00:30 07/28/20 22 07/28/2022 MANUA L DIFFE RENTI AL eosin 3 % 0-7 Not Available [address], [address], 07/28/2022 12:00:30 07/28/20 22 07/28/2022 MANUA L DIFFE RENTI AL reactive lymph 2 % 0-10 Not Available [address], [address], 07/28/2022 12:00:30 07/28/20 22 07/28/2022 MANUA L DIFFE RENTI AL meta 1 % Not Available [address], [address], 07/28/2022 12:00:30 07/28/20 22 07/28/2022 GERDA VILLANUEVA platelet estimate ADEQUA TE Not Available [address], [address], 07/28/2022 12:00:30 07/28/20 22 07/28/2022 CBC WBC 14.99 K/??L 3.98-1 0.04 high PLEAS E SEE GERDA HUGHES AL Not Available [address], [address], 07/28/2022 12:01:10 07/28/20 22 07/28/2022 CBC RBC 4.54 M/??L 3.93-5 .22 Not Available [address], [address], 07/28/2022 12:01:10 07/28/20 22 07/28/2022 CBC HGB 13.7 g/dL 11.2-1 5.7 Not Available [address], [address], 07/28/2022 12:01:10 07/28/20 22 07/28/2022 CBC HCT 43.0 % 34.1-4 4.9 Not Available [address], [address], 07/28/2022 12:01:10 07/28/20 22 07/28/2022 CBC MCV 94.7 fL 79.4-9 4.8 Not Available [address], [address], 07/28/2022 12:01:10 07/28/20 22 07/28/2022 CBC MCH 30.2 pg 25.6-3 2.2 Not Available [address], [address], 07/28/2022 12:01:10 07/28/20 22 07/28/2022 CBC MCHC 31.9 g/dL 32.2-3 5.5 low Not Available [address], [address], 07/28/2022 12:01:10 07/28/20 22 07/28/2022 CBC plt 217 K/??L 182-36 9 Not Available [address], [address], 07/28/2022 12:01:10 07/28/20 22 07/28/2022 CBC MPV 9.9 fL 9.4-12 .3 Not Available [address], [address], 07/28/2022 12:01:10 07/28/20 22 07/28/2022 CBC neut% 44.2 % 34.0-7 1.1 Not Available [address], [address], 07/28/2022 12:01:10 07/28/20 22 07/28/2022 CBC neut# 6.62 1.56-6 .13 high Not Available [address], [address], 07/28/2022 12:01:10 07/28/20 22 07/28/2022 CBC lymph % 41.1 % 19.3-5 1.7 Not Available [address], [address], 07/28/2022 12:01:10 07/28/20 22 07/28/2022 CBC lymph # 6.16 K/??L 1.18-3 .74 high SREV= Slide revie wed by marcelino mitchell. Not Available [address], [address], 07/28/2022 12:01:10 07/28/20 22 07/28/2022 CBC mono% 9.8 % 4.7-12 .5 Not Available [address], [address], 07/28/2022 12:01:10 07/28/20 22 07/28/2022 CBC mono# 1.47 0.24-0 .56 high Not Available [address], [address], 07/28/2022 12:01:07/28/20 22 07/28/2022 CBC eo% 1.7 % 0.7-5. 8 Not Available [address], [address], 07/28/2022 12:01:07/28/2007/28/2022 CBC eo# 0.26 0.04-0 .36 Not Available [address], [address], 07/28/2022 12:01:07/28/20 22 07/28/2022 CBC baso% 1.3 % 0.1-1. 2 high Not Available [address], [address], 07/28/2022 12:01:07/28/20 22 07/28/2022 CBC baso# 0.19 0.00-0 .08 high Not Available [address], [address], 07/28/2022 12:01:10 07/28/20 22 07/28/2022 CBC RDW-CV 15.8 % 11.7-1 4.4 high Not Available [address], [address], 07/28/2022 12:01:07/28/20 22 07/28/2022 CBC Ig% 1.900 % 0.000- 1.500 high Ig % >0.5 Indic ates possi ble Left Shift Not Available [address], [address], 07/28/2022 12:01:10 07/28/20 22 07/28/2022 CBC Ig# 0.290 0.000- 0.093 high Not Available [address], [address], 07/28/2022 12:01:10 07/28/20 22 07/28/2022 CBC NRBC% 0.0 % 0.0-0. 2 Not Available [address], [address], 07/28/2022 12:01:10 07/28/20 22 07/28/2022 CBC NRBC# 0.000 0.000- 0.012 Not Available [address], [address], 07/28/2022 12:01:10 07/28/20 22 07/28/2022 ESR sed rate 14.0 0.0-15 .0 Not Available [address], [address], 07/28/2022 15:16:11 07/28/20 22 07/28/2022 C-BRITNEY CTIVE PROTE IN-QU ANTIT ATIVE C-reactive protein -quant <2.0 mg/L 0.0-9. 0 < crp verif ied, cmd Not Available [address], [address], 07/28/2022 16:00:35 Result Notes None recorded. Problems Name Problem SNOMED Code Status Onset Date Resolution Date Notes Provider Name and Address Organization Details Recorded Time Foot pain 75885184 Active Mauricio Martinez MD [address] [place] [address], [address] , [facility] 5 18:28:39 Osteopeni a 317928155 Active Mauricio Matrinez MD [address] [place] [address], [address] , [facility] 5 18:28:39 Dry eyes 678930404 Active Mauricio Martinez MD [address] [place] [address], [address] , [facility] 6 08:08:12 Long-term drug therapy Active 2016 Mauricio Martinez MD [address] [place] [address], [address] , [facility] 7 16:10:24 Morbid obesity 098599669 Active 2020 Most recent BMI 01/17/21 = 42.3. Makayla Mccabe LPN null, [facility] 1 11:37:58 Chronic kidney disease stage 3 264972955 Active 2021 GFR = 51.2 on 07/28/22 Cindy Thomas LPN null, [facility] 2 13:37:41 Rheumatoi d arthritis 29795950 Active 2004 Mauricio Martinez MD [address] [place] [address], [address] , [facility] 6 08:08:12 Spinal stenosis of lumbar region 05635524 Active 2006 Not Available [facility] 3 03:08:02 Osteoarth ritis of knee 231729377 Active 2005 Not Available [facility] 3 03:08:02 Inflammat ory polyarthr opathy 599372014 Active 2004 Not Available [facility] 3 03:08:02 Swelling of limb 22402991 Completed 200609/20/2013 Not Available [facility] 3 02:03:51 Enthesopa thy of hip region 76228777 Completed 200609/20/2013 Not Available [facility] 3 02:03:09 Hip pain 88488957 Completed 200509/20/2013 Not Available [facility] 3 02:01:32 Neck pain 64423669 Completed 09/20/2013 Not Available [facility] 3 02:00:33 Localized , primary osteoarth ritis of the ankle and/or foot 785052340 Active Mauricio Martinez MD [address] [place] [address], [address] , [facility] 5 19:45:48 Localized , primary osteoarth ritis 153634412 Active 2005 Not Available [facility] 3 03:08:02 Localized , primary osteoarth ritis of the pelvic region and thigh 335765288 Active Not Available [facility] 3 03:08:02 Tachycard ia 0989254 Active 2004 Not Available [facility] 3 03:08:02 Effusion of joint 902814802 Completed 200509/20/2013 Not Available [facility] 3 02:04:23 Knee joint effusion 322990828 Completed 200609/20/2013 Not Available [facility] 3 02:03:44 Anemia 689388160 Active 2006 Not Available [facility] 3 03:08:02 Low back pain 928456064 Active Not Available [facility] 3 03:08:02 Pain in wrist 84536439 Completed 200409/20/2013 Not Available [facility] 3 02:02:22 Backache 827542113 Completed 200609/20/2013 Not Available [facility] 3 02:01:12 Pain in limb 32944968 Completed 200709/20/2013 Not Available [facility] 3 02:00:53 Menopausa l and postmenop ausal disorders 194119145 Active 2008 Not Available [facility] 3 03:08:02 Malaise and fatigue 451561331 Completed 200409/20/2013 Not Available [facility] 3 02:00:15 Arthropat hy 212849297 Active 2006 Not Available [facility] 3 03:08:02 Problem Notes None recorded. Procedures Surgical History Date Name Laterality Status Provider Name and Address Organization Details Recorded Time 0 Knee (Left) Injection completed Mauricio Martinez MD [address] [place] [address], [phone], [facility] 05/02/2010 08:42:51 0 Generic Procedure Template completed Mauricio Martinez MD [address] [place] [address], [phone], [facility] 04/11/2010 13:49:38 0 Knee (Right) Injection completed Mauricio Martinez MD [address] [place] [address], [address], [facility] 04/11/2010 13:49:38 9 Generic Procedure Template completed Mauricio Martinez MD [address] [place] [address], [phone], [facility] 08/14/2009 10:10:09 9 Generic Procedure Template completed Mauricio Martinez MD [address] [place] [address], [phone], [facility] 04/03/2009 10:04:14 Imaging Results None recorded. Procedure Notes None recorded. Medical Equipment None Reported. Allergies Allergen ID Allergen Name Allergen Category Reaction Reaction Severity Criticality Documentation Date Start Date Code Code System Note Provider Name and Address Organization Details Recorded Time 51020 Substance with sulfonami de structure and antibacte rial mechanism of action (substanc e) medicatio n rash Not available Not available 04/02/2009 40185 8003 SNOMED Not Available [facility] 1 06:05:20 68311 Tylenol medicatio n nausea vomiting Not available Not available Not available 04/02/2009 16860 3 RxNorm Not Available [facility] 1 06:05:20 567507 oxybutyni n medicatio n Not available Not available Not available 01/20/2013 51599 RxNorm Sonam Can brooke [facility] 3 10:54:54 984181 adhesive tape environme nt,medica tion itching Not available Not available 07/21/2018 27827 UNK PRECIOUS Nioñ [facility] 8 09:05:23 Medications Name Sig Start Date [...] Updated DateTime 2 160.02 cm 39 kg/m2 88267.7 6 g 92 /min 110 mm[Hg] 62 mm[Hg] Lu De León [facility] 2 09:33:16 Date Recorded Body height Provider Name an d Address Organization Details Last Updated DateTime 04/16/2022 160.02 [address] De [address]ón [facility] 04/16/2022 15:19:32 Date Recorded Body height Body mass index (BMI) Body weight Systolic blood pressure Diastolic blood pressure Provider Name and Address Organization Details Last Updated DateTime 07/01/2022 160.02 cm 40 kg/m2 270443.8 8 g 122 mm[Hg] 66 mm[Hg] Lu De León [facility] 2 09:21:11 Date Recorded Body height Body mass index (BMI) Body weight Heart rate Provider Name and Address Organization Details Last Updated DateTime 08/05/2022 160.02 cm 40 kg/m2 337241.88 g 92 /min Lu De León [facility] 08/05/2022 09:53:11 Social History Question Answer Notes LastModified by Organizat ion Details LastModified Time Tobacco Smoking Status Former Smoker quit in 1992 Not Available [facility] 09/03/2020 03:17:56 What Is Your Level Of Alcohol Consumption? 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 Information not available 05/02/2010 Sex: Unknown [...] pneumococcal polysaccharide PPV23 1 completed PRECIOUS [place], [facility] 08/11/2021 16:28:47 COVID-19, mRNA, LNP-S, PF, 100 mcg/0.5mL dose or 50 mcg/0.25mL dose 1 completed PRECIOUS [place], [facility] 03/25/2022 09:30:36 COVID-19, mRNA, LNP-S, PF, 100 mcg/0.5mL dose or 50 mcg/0.25mL dose 1 completed [place] [facility] 03/25/2022 09:30:50 COVID-19, mRNA, LNP-S, PF, 100 mcg/0.5mL dose or 50 mcg/0.25mL dose 1 completed [place] [facility] 03/25/2022 09:30:58 Influenza, split virus, quadrivalent, preservative 1 completed [place]OUS [place] [facility] 03/25/2022 09:31:28 Past Encounters Encounter ID Performer Location Encounter Start Date Encounter Closed Date Diagnosis/Indication Diagnosis SNOMED-CT Code Diagnosis ICD10 Code Diagnosis Note [id number] Radiology , [facility] [address] [facility] [place] [address] 10/05/2005 13:25:17 10/05/2005 15:21:47 [id number] LAB [address] [place] [address] 10/05/2005 14:00:00 10/05/2005 14:00:19 [id number] Rheumatol virgen [address] [place] [address] 10/05/2005 12:47:15 10/05/2005 15:53:12 [id number] Rheumatol og[place]illary, [place] [address] 1 01/04/2006 15:13:06 01/04/2006 18:01:34 [id number] Radiology , [facility] [address] 1 03/05/2006 14:52:06 03/05/2006 16:22:30 [id number] Radiology , [facility] [address] 1 03/05/2006 00:00:00 11/21/2008 02:02:29 [id number] LAB - [facility] [address] 1 03/05/2006 15:20:16 03/05/2006 15:20:35 [id number] Rheumatol oghillary [facility] [address] 1 04/13/2006 14:54:25 04/14/2006 13:40:39 [id number] LAB - [facility] [address] 1 06/04/2006 14:57:48 06/04/2006 14:58:00 [id number] Radiology , [facility] [address] 1 09/17/2006 16:02:14 09/17/2006 17:52:23 [id number] Radiology , [facility] [address] 1 09/17/2006 00:00:00 11/21/2008 02:02:29 [id number] Rheumatol oghillary, [facility] [address] 1 09/17/2006 15:13:12 11/21/2008 02:02:29 [id number] Rheumatol oghillary, [facility] [address] 1 09/27/2006 11:41:02 09/27/2006 17:51:15 [id number] Radiology , [facility] [address] 1 10/12/2006 11:51:47 11/21/2008 02:02:29 [id number] Radiology , [facility] [address] 1 10/12/2006 00:00:00 11/21/2008 02:02:29 [id number] Rheumatol oghillary [facility] [address] 1 10/12/2006 11:15:53 10/13/2006 06:39:38 [id number] Rheumatol oghillary [facility] [address] 1 11/17/2006 08:22:39 11/17/2006 17:16:18 [id number] Radiology , [facility] [place], [place] [address] 1 11/17/2006 09:01:20 11/17/2006 17:11:27 [id number] Radiology , [facility] [place], [place] [address] 1 11/17/2006 00:00:00 11/21/2008 02:02:29 [id number] LAB - [facility] [address] 1 12/22/2006 12:48:20 12/22/2006 12:48:30 [id number] Rheumatol oghillary [facility] [place], [place] [address] 1 01/20/2007 08:39:29 01/20/2007 14:07:40 [id number] LAB - [facility] [address] 1 01/20/2007 09:12:44 01/20/2007 09:12:57 [id number] Rheumatol virgen [facility] [address] 1 03/15/2007 14:23:12 03/16/2007 10:48:41 [id number] Rheumatol oghillary [facility] [place], [place] [address] 1 04/22/2007 08:33:51 04/25/2007 07:07:47 [id number] Radiology , [facility] [place], [place] [address] 1 04/22/2007 09:18:40 04/22/2007 15:03:59 [id number] Radiology , [place] [address] [place] [address] 1 04/22/2007 00:00:00 11/21/2008 02:02:29 [id number] Rheumatol oghillary [facility] [address] 1 06/28/2007 15:00:38 06/29/2007 14:22:51 [id number] Rheumatol virgen [facility] [address] 1 07/19/2007 11:45:05 07/19/2007 16:10:21 [id number] Layneol virgen [facility] [address] 1 08/05/2007 09:36:20 08/08/2007 06:55:11 [id number] Rheumatol virgen [facility] [address] 1 08/12/2007 10:59:17 08/15/2007 06:44:37 [id number] LAB - [facility] [address] 1 08/12/2007 11:42:24 08/12/2007 11:42:35 [id number] Rheumatol virgen [facility] [address] 1 08/19/2007 15:22:43 11/21/2008 02:02:29 [id number] Thomas new [facility] [address] 1 08/26/2007 14:48:51 08/31/2007 09:40:43 [id number] LAB - [facility] [address] 1 08/26/2007 15:21:33 08/26/2007 15:21:42 [id number] Rheumatmalena new [facility] [address] 1 09/02/2007 08:06:35 11/21/2008 02:02:29 [id number] LAB - [facility] [address] 1 09/13/2007 15:56:30 09/13/2007 15:56:38 [id number] Thomas new [facility] [address] 1 09/13/2007 14:47:31 09/28/2007 08:42:41 [id number] Rheumatol virgen [facility] [address] 1 10/21/2007 16:39:39 11/21/2008 02:02:29 [id number] Radiology , [facility] [address] 1 11/18/2007 15:57:20 11/18/2007 17:55:15 [id number] Radiology , [facility] [address] 1 11/18/2007 00:00:00 11/21/2008 02:02:29 [id number] Rheumatol ogy, [facility] [address] 1 11/18/2007 14:57:53 11/21/2008 02:02:29 [id number] LAB - [facility] [address] 1 11/18/2007 14:48:29 11/18/2007 14:48:38 [id number] Rheumatol ogy, [facility] [address] 1 04/19/2008 10:35:27 11/21/2008 02:02:29 [id number] Rheumatol ogy, [facility] [address] 1 08/06/2008 07:59:16 11/21/2008 02:02:29 [id number] LAB - [facility] [address] 1 08/06/2008 08:32:59 08/06/2008 08:33:12 [id number] Sandie Rivera LPN Rheumatol ogy, [facility] [address] 1 [id number] Radiology , [place] [address] [place] [address] 1 03/18/2009 15:57:10 03/21/2009 11:33:55 [id number] Rheumatol ogy, [facility] [address] 1 04/02/2009 13:24:50 04/04/2009 10:02:51 [id number] Radiology , [place] [address] [place] [address] 1 04/02/2009 14:23:18 04/04/2009 14:05:34 [id number] Radiology , [address] [place] [address] 1 04/02/2009 14:23:45 04/03/2009 16:51:22 [id number] Radiology , [facility] [address] 1 04/02/2009 14:25:50 04/03/2009 16:43:54 [id number] Rheumatol oghillary [facility] [address] 1 08/12/2009 11:00:30 08/15/2009 11:24:44 [id number] Radiology , [facility] [address] 1 03/18/2009 00:00:00 08/29/2009 02:00:52 [id number] Radiology , [facility] [address] 1 04/02/2009 00:00:00 08/29/2009 02:00:52 [id number] LAB - [facility] [address] 1 08/12/2009 11:36:05 08/12/2009 11:36:21 [id number] Rheumatol oghillary, [facility] [address] 1 10/11/2009 12:54:43 10/14/2009 10:14:13 [id number] Radiology , [facility] [address] 1 10/11/2009 13:39:51 10/16/2009 13:50:14 [id number] Rheumatol virgen [facility] [address] 1 10/14/2009 10:04:12 10/15/2009 09:45:57 [id number] Rheumatol virgen [facility] [address] 1 04/11/2010 08:58:22 04/11/2010 14:09:59 [id number] Rheumatol virgen [facility] [address] 1 05/02/2010 07:58:57 05/06/2010 09:35:12 [id number] Rheumatol virgen [facility] [address] 1 01/12/2011 10:21:20 01/12/2011 13:27:41 [id number] Radiology , [address] [place] [address] 1 01/13/2011 09:13:10 01/13/2011 09:47:00 [id number] Radiology , [facility] [place] [address] 1 01/13/2011 09:18:48 01/13/2011 09:48:55 [id number] Rheumatol oghillary [facility] [place] [address] 1 02/27/2011 08:34:18 03/03/2011 08:40:08 [id number] Rheumatol oghillary [facility] [place] [address] 1 04/21/2011 08:19:01 04/22/2011 08:43:36 [id number] Rheumatol virgen [facility] [place] [address] 1 10/31/2012 10:18:01 11/02/2012 09:32:56 [id number] Rheumatol virgen [facility] [place] Adolph De Jesus[place]ia [place], [place] [address] 1 01/20/2013 09:59:33 01/23/2013 09:17:14 [id number] Rheumatol virgen [facility] [place], [place] [address] 1 08/29/2013 10:35:24 09/01/2013 09:10:34 Rheumatoid arthritis [id number] RA. Long hx erosive RA. Synovitis seems well controlled on current meds. Some swelling R knee (see below). Foot pain probably NOT directly related to RA. No signs of synovitis in feet. Check labs, continue current meds. Knee joint effusion [id number] Small trace warm effusion R knee. Prior TKR. She is complainin g of a little pain. If sx's persist or increase will need to see Ortho. Emphasized this is improtant. Synovitis related to RA is possible, though late, indolent infection could also be conceivabl e. Foot pain [id number] Pain with prolongued standing. No swelling or AM stiffness. I think this is more mechanical rather than inflammato ry symptoms. I suggested she be seen by a crane service technician for ? orthotics. [id number] Rheumatol oghillary [address] [place] [address] 04/04/2014 09:04:15 04/05/2014 09:07:45 Rheumatoid arthritis [id number] RA. Long hx erosive RA. Synovitis seems well controlled on current meds. No signs active synovitis today. Encouraged exercise and weight loss. Perhaps she is candidate for Exercise is Medicine program. Check labs, continue current meds. Foot pain [id number] Pain with prolongued standing. No swelling or AM stiffness. I think this is more mechanical rather than inflammato ry symptoms. Sx's improved with better foot gear. Long-term drug therapy [id number] On petroleum terminal plant operator MTX and LEF. No signs or symptoms of toxicity. Pt tells me she had elevation in enzymes a year or so ago. . Continue to monitor labs q 2 monthly for now. . Continue folate/blaze covorin. FDC methotrexate user [id number] Mauricio Martinez MD Rheumatol ogy, [address] [place] [address] 1 04/17/2015 10:00:39 04/18/2015 09:36:23 Rheumatoid arthritis 17151799 RA. Long hx erosive RA. Synovitis seems [...] Suggested referral to nutrition; eating habits poor. FDC methotrexate user [id number] Long-term drug therapy [id number] On petroleum terminal plant operator MTX and LEF. No signs or symptoms of toxicity. Pt tells me she had elevation in enzymes a year or so ago. . Continue to monitor labs q 2 monthly for now. . Continue folate/blaze covorin. Localized, primary osteoarthritis of the ankle and/or foot [id number] Bilat ankle and foot pain, worse with prolonged standing, walking. Does better in supportive shoe. I suggested she try arch support insert. Discussed weight loss. [id number] Mauricio Martinez MD Rheumatol hillary, [address] [address] 1 09/19/2015 09:29:16 09/19/2015 10:07:52 Rheumatoid arthritis 14467005 M06.9 RA. Long hx erosive RA. Synovitis [...] to nutrition; eating habits poor. Foot pain 11218315 M79.6 71 Pain with prolongued standing. No swelling or AM stiffness. Eliezer enlargemen t R midfoot. I think this is more mechanical rather than inflammato ry . Check x ray. Suggest referral to podiatry. Osteopenia 922895220 M85 .80 Hx of mild osteopenia at last scan 6 yrs ago. Post menopausal and with RA. We should repeat. [id number] Mauricio Martinez MD Rhe[facility]ol [facility] [address] [address] 03/23/2016 09:55:29 03/25/2016 14:20:05 Rheumatoid arthritis 95669650 M06.9 RA. Long hx erosive RA. Synovitis [...] to nutrition; eating habits poor. Dry eyes 049238565 H04.1 29 She was told by ophthalmol ogist about dry eyes. Using drops. Also dry mouth. Check Sjogren's antibodies .Suggested Sj[employer]ren's [employer] website. Long-term drug therapy 705367564 Z79.899 On petroleum terminal plant operator MTX and LEF. No signs or symptoms of toxicity. Pt tells me she had elevation in enzymes a couple of years ago. . Continue to monitor labs q 3 monthly for now. . Continue folate/blaze covorin. [id number] Mauricio Martinez MD Rheumatol [facility] [place] [address] [place] [address] 10/22/2016 09:32:42 10/23/2016 07:18:34 Rheumatoid arthritis 17693387 M06.9 RA. Long hx erosive RA. Synovitis seems very well controlled on current meds. Few signs active synovitis today, perhaps sl synovitis at L wrist..Rec ent labs all OK. She needs updated labs in 3 mo. Return visit in 6 months, sooner if needed. Encouraged exercise and weight loss. [id number] Mauricio Martinez MD Rheumatol virgen, [address] [place] [address] 1 05/20/2017 09:18:33 05/20/2017 09:45:40 Rheumatoid arthritis 07598793 M06.9 RA. Long hx erosive RA. Synovitis [...] will try swimming. Pain in left knee 415362 2072 45162 M25.562 S/p L TKR. No specific findings today. For persisting sxs should see Ortho. Long-term drug therapy 898156592 Z79.899 On petroleum terminal plant operator MTX and LEF. No signs or symptoms of toxicity. Pt tells me she had elevation in enzymes a couple of years ago. . Continue to monitor labs q 3 monthly for now. . Continue folate/blaze covorin. Also Plaquenil. She is up to date on eye exams. Morbid obesity 108977859 E66.01 Reached 250 lbs. Past 2 mo doing well with Nutrasyste m diet, has lost 20 lbs. [id number] Mauricio Martinez MD Rheumatol [address] [address] 1 11/18/2017 09:36:43 11/18/2017 13:16:31 Rheumatoid arthritis 47079623 M06.9 RA. Long hx erosive RA. Synovitis seems very well controlled on current meds. Essentiall y no signs active synovitis today.. No change in meds today. Recent labs all OK. She needs updated labs every 3 mo. Return visit in 6 months, sooner if needed. Encouraged exercise and weight loss. Long-term drug therapy 072161128 Z79.899 On petroleum terminal plant operator MTX and LEF. No signs or symptoms of toxicity. Pt tells me she had elevation in enzymes a couple of years ago. . Continue to monitor labs q 3 monthly for now. . Continue folate/blaze covorin. Also Plaquenil. She is up to date on eye exams. Spinal trevor nosis of lumbar region 29188019 M48.061 Chronic back pain. Weight contribute s, but has had no lasting success with dieting etc.Does not exercise. [id number] Mauricio Martinez MD Rheumatol [address] [address] 07/21/2018 08:59:47 07/21/2018 09:36:25 Rheumatoid arthritis 79251502 M06.9 RA. Long hx erosive RA. Synovitis seems very well controlled on current meds. Essentiall y no signs active synovitis today.. No change in meds today. Last labs OK. Due for labs in 1 mo. . She needs updated labs every 3 mo. Return visit in 6 months, sooner if needed. Encouraged exercise and weight loss. Osteopenia 486991941 M85 .80 Hx of mild osteopenia at last scan 2014. Post menopausal and with RA. We should repeat in 2020. . Long-term drug therapy 245697783 Z79.899 On nursing home MTX and LEF. No signs or symptoms of toxicity. Pt tells me she had elevation in enzymes a couple of years ago. . Continue to monitor labs q 3 monthly for now. . Continue folate/blaze covorin. Also Plaquenil. She is up to date on eye exams. Hip pain 50972625 M25.55 9 bilat THR about 8 years ago. Hip pain with ambulation .Should probably be re-eval by ortho. [id number] Mauricio Martinez MD Rheumatol [address] [place] [address] 1 03/16/2019 10:07:25 03/20/2019 07:08:46 Rheumatoid arthritis 71395160 M06.4 RA. Long hx erosive RA. Synovitis [...] and weight loss. Pain of left wrist 76432 48939 61622 M25.532 pain and subluxatio n L wrist. Has not had x ray in years. Updated basline . Long-term drug therapy 631227577 Z79.899 On petroleum terminal plant operator MTX and LEF. No signs or symptoms of toxicity. Pt tells me she had elevation in enzymes a couple of years ago. . Continue to monitor labs q 3 monthly for now. . Continue folate/blaze covorin. Also Plaquenil. She is up to date on eye exams. Pain in toe 871539074 M7 9.676 nodule, swelling overlying 5th MTP. Not symptomati c.Offered local injection; declined for now. [id number] Mauricio Martinez MD Rheumatol [address] [place] [address] 1 09/21/2019 10:23:20 09/22/2019 06:05:10 Localized, primary osteoarthritis of the pelvic region and thigh 924293897 M19.91 On gapapentin for back pain. Helps. Rheumatoid arthritis 698 23724 M06.4 RA. Long hx erosive RA. Synovitis [...] exercise and weight loss. Long-term drug therapy 728086331 Z79.899 On petroleum terminal plant operator MTX and LEF. No signs or symptoms of toxicity. Pt tells me she had elevation in enzymes a couple of years ago. . Continue to monitor labs q 3 monthly for now. . Continue folate/blaze covorin. Also Plaquenil. She is up to date on eye exams. [id number] Mauricio Martinez MD Rheumatol [facility] [place] [facility] [address] [facility] [address] 02/16/2020 08:18:06 02/16/2020 12:36:02 Rheumatoid arthritis 12423275 M06.4 RA. Long hx erosive RA. Synovitis [...] exercise and weight loss. Contusion of chest 87532 004 S20.212A Describes contusion upper anterior chest wall 2 weeks ago. Clearly improving. No pleuritic pain or SOB. No worrisome sxs at present. Should gradually resolve. Neck pain 54569800 M54.2 Pain in neck, worse as day goes on. Some radiation to R occiput. Otherwise no radicular sxs, no weakness. Suspect degen disc disease.Of fered virtual PT appointmen ean. Declined for now. Long-term drug therapy 849795402 Z79.899 On petroleum terminal plant operator MTX and LEF. No signs or symptoms of toxicity. Pt tells me she had elevation in enzymes a couple of years ago. . Continue to monitor labs q - 4 monthly for now. . Continue folate/blaze covorin. Also Plaquenil. She is up to date on eye exams. [id number] Mauricio Martinez MD Rheumatol [address] [address] 03/28/2020 10:21:29 03/28/2020 12:10:35 Rheumatoid arthritis 00833236 M06.4 RA. Long hx erosive RA. Synovitis [...] followed by Dr Rocha. Long-term drug therapy 186432710 Z79.899 On nursing home MTX and LEF. No signs or symptoms of toxicity. Pt tells me she had elevation in enzymes a couple of years ago. . Continue to monitor labs q - 4 monthly for now. . Continue folate/blaze covorin. Also Plaquenil. She is up to date on eye exams. [id number] Mauricio Martinez MD Rheumatol hillary, [address] [address] 1 05/24/2020 09:30:22 05/24/2020 11:31:06 Rheumatoid arthritis 42368251 M06.4 RA. Long hx erosive RA. Synovitis [...] or sooner if needed. Long-term drug therapy 608613063 Z79.899 On nursing home MTX and LEF. No signs or symptoms of toxicity. Pt tells me she had elevation in enzymes a couple of years ago. . Continue to monitor labs q - 4 monthly for now. . Continue folate/blaze covorin. Also Plaquenil. She is up to date on eye exams. Moderate r ecurrent major depression 19411308 F33.1 Under treatment. Covid restrictio ns, isolation exacerbati ng depression .No thoughts of self harm. [id number] Mauricio Martinez MD Rheumatol virgen, [address] [place] [address] 1 09/20/2020 09:07:55 09/23/2020 07:14:35 Rheumatoid arthritis 58721577 M06.4 RA. Long hx erosive RA. Synovitis [...] her fever ) Pain in right knee 25509 17044 07110 M25.561 Describes 2-3 d pain swelling R knee. S/P TKR yrs ago.As this was self limited, doubt infection, but if recurring issue, would nee eval by Ortho. Long-term drug therapy 292708708 Z79.899 On petroleum terminal plant operator MTX and LEF. No signs or symptoms of toxicity. Pt tells me she had elevation in enzymes a couple of years ago. . Continue to monitor labs q - 4 monthly for now. . Continue folate/blaze covorin. Also Plaquenil. She is up to date on eye exams. [id number] Mauricio Martinez MD Rheumatol virgen, [address] [place] [address] 01/17/2021 08:59:38 01/20/2021 06:39:35 Rheumatoid arthritis 18629807 M06.4 RA. Long hx erosive RA. Synovitis [...] 5 mo (Dr Rocha) Long-term drug therapy 108452558 Z79.899 On nursing home MTX and LEF. No signs or symptoms of toxicity. Pt tells me she had elevation in enzymes a couple of years ago. . Continue to monitor labs q 3 - 4 monthly for now. . Continue folate/blaze covorin. Also Plaquenil. She is up to date on eye exams. [id number] Darion Rocha MD Rheumatol [facility] [facility] [address] [facility] [place], [place] [address] 07/15/2021 08:54:37 07/16/2021 18:53:59 Rheumatoid arthritis 26789288 M06.4 RA. Long hx erosive RA.Patient still [...] Patient verbalized understand ing. Long-term drug therapy 542502176 Z79.899 On petroleum terminal plant operator MTX and LEflunomid e and plaquenil. Continue folic acid.Monit or labs.Dereck nue to follow with ophthalmol ogy. Chronic renal failure 90 802694 N18.9 No more NSAIDs.Pat ient check with pcp on her renal failure. [id number] Darion Rocha MD Rheumatol virgen, [address] [place] [address] 11/19/2021 09:39:50 11/19/2021 20:25:30 Rheumatoid arthritis 98730617 M06.4 RA. Long hx erosive RA.Persist ently [...] or sooner if needed. Long-term drug therapy 767490052 Z79.899 On petroleum terminal plant operator MTX and LEflunomid e and plaquenil. Continue folic acid.Monit or labs.Dereck nue to follow with ophthalmol oghillary.Patien t to hold methotrexa te and leflunomid e if fever or any sign of infection. Chronic renal failure 90 324426 N18.9 No more NSAIDs.Saw nephrology . [id number] Darion Rocha MD Rheumatol oghillary, [address] [place] [address] 03/25/2022 09:25:01 03/31/2022 11:10:45 Rheumatoid arthritis 62402883 M06.4 RA. Long hx erosive RA.Persist ently [...] e state sthat she is seeing a finished hardware erector and would prefer to wait to see [...] or sooner if needed. Long-term drug therapy 422480157 Z79.899 On nursing home MTX and Leflunomid e and plaquenil. Continue folic acid.Monit or labs.Dereck nue to follow with ophthalmol virgen.Patrick t to hold methotrexa te and leflunomid e if fever or any sign of infection. Chronic renal failure 90 099954 N18.9 No more NSAIDs.Lauren id nephrotoxi c agents.Saw nephrology .To be monitored by PCP> [id number] Darion Rocha MD Rheumatol virgen, [facility] [address] [place] [address] 04/16/2022 15:17:07 04/22/2022 13:06:50 Rheumatoid arthritis 64096153 M06.4 RA. Long hx erosive RA.Persist ently [...] Patient verbalized understand ing. Long-term drug therapy 477815541 Z79.899 On nursing home MTX and Leflunomid e and plaquenil. Continue folic acid.Monit or labs.Dereck nue to follow with ophthalmol oghillary.Patien t to hold methotrexa te and leflunomid e if fever or any sign of infection. Chronic renal failure 90 386717 N18.9 No more NSAIDs.Lauren id nephrotoxi c agents.Saw nephrology .To be monitored by PCP. [id number] Lu De León LPN Rheumatol oghillary, [address] [place] [address] 04/29/2022 13:30:20 05/20/2022 11:52:16 Inflammatory polyarthropathy 506107545 M06.4 [id number] Darion Rocha MD Rheumatol oghillary, [address] [place] [address] 07/01/2022 09:19:22 07/09/2022 09:46:16 Rheumatoid arthritis 97331744 M06.4 RA. 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 Will get records to decide of further treatment. [id number] Darion Rocha MD Rheumatol ogy, [facility] [address] [facility] [place] [address] 08/05/2022 09:49:18 08/06/2022 09:35:02 Rheumatoid arthritis 44550337 M06.4 RA. Long hx erosive RA.Persist ently [...] sooner if needed. Interstiti al lung disease 683768486 J84.9 Recently admitted to the hospital for [...] ID Guarantor Name 03/25/2022 1 MEDICARE B[place]: [facility] Sharad Al [id number] Sharad Al 03/25/2022 2 [place] [facility] Sharad Al [id number] Sharad Al 04/16/2022 1 MEDICARE [place]: [facility] Sharad Al [id number] Sharad Marmolejo Fidelshelbi 04/16/2022 2 [place] [facility] Sharad Al [id number] Sharad Al 04/29/2022 1 MEDICARE B-[place]: [facility] Sharad Al [id number] Shraad Marmolejo Fidelshelbi 04/29/2022 2 [place] [facility] Sharad Al [id number] Sharad Al 07/01/2022 1 MEDICARE B-[place]: [facility] Sharad Al [id number] Sharad Marmolejo Fidelshelbi 07/01/2022 2 [place] [facility] Sharad Al [id number] Sharad Al 08/05/2022 1 MEDICARE B[place]: [employer] [facility] Sharad Al [id number] Sharad Al 08/05/2022 2 [place] [facility] Sharad Al [id number] Sharad Al Notes Date Note Type Note [...] this helps. Labs reviewed. Kathy Rocha MD [address] [place] [address], [id number], [facility] 03/25/2022 10:06:53 04/16/2022 text/html Patient is 60 [...] this helps. Labs reviewed. Kathy Rocha MD [address] [place] [address], [id number], [facility] 04/16/2022 16:49:31 07/01/2022 text/html Patient is 61 [...] helps. No recent reviewed. Kathy Rocha MD [address] [place] [address], [id number], [facility] 08/05/2022 10:16:02 08/05/2022 text/html Patient is 61 [...] helps. No recent reviewed. Kathy Rocha MD [address] [place] [address], [phone], [facility] 08/05/2022 10:14:37 OBGyn Episode No OBEpisode recorded.
--- OUTSIDE RECORDS SUMMARY | 2025-01-31 10:27 | XMS_ITS | Clinical Summary ---
Author Organization [facility] Address [address] [id number] Care Team Providers Care Egg Breaking Machine Operator Name Role Phone Brock Shaw DO Primary Care Provider [phone] Allergies Active Allergy Reactions Criticality Noted Date [...] patient's age to complete this topic [place] [address] [address] Care Teams Egg Breaking Machine Operator Relationship Specialty Start Date End Date Brock Shaw DO [address] [place] [address] PCP - General 12/27/23
--- OUTSIDE RECORDS SUMMARY | 2025-01-31 10:27 | XMS_ITS | Clinical Summary ---
Author Organization [facility] Address [address] [place] [address] Phone Care Team Providers Care Marble Cleaner Name Role Phone Mi Puentes MD Primary Care Provider Allergies Active Allergy Reactions Criticality Noted Date [...] topic Insurance MEDICARE MEDICAID [place] Care Teams Marble Cleaner Relationship Specialty Start Date End Date Mi Puentes MD [address] [place] [phone] PCP - General Family Medicine 07/30/21
== END 2025-01-31 10:02 | disposition home or self-care (01) ==
LOC: HO.RHE 09:23
PROVIDERS: PCP Family Medicine; Visit Provider Student in an Organized Health Care Education/Training Program
DX: M06.09 Rheumatoid arthritis without rheumatoid factor, multiple sites (principal); M17.0 Bilateral primary osteoarthritis of knee; Z51.81 Encounter for therapeutic drug level monitoring; Z79.69 Long term (current) use of other immunomodulators and immunosuppressants
CPT/HCPCS: 99214; G2211

== ENCOUNTER → 2025-01-31 09:22 | Outpatient (BNVA) | payer OTHER, SELFPAY | PROVIDERS: PCP Family Medicine; Visit Provider Student in an Organized Health Care Education/Training Program | DX: M06.00 Rheumatoid arthritis without rheumatoid factor, unspecified site (principal); M17.0 Bilateral primary osteoarthritis of knee; Z51.81 Encounter for therapeutic drug level monitoring; Z79.69 Long term (current) use of other immunomodulators and immunosuppressants | CPT/HCPCS: 99212 ==

== ENCOUNTER 2025-06-05 07:47 | Outpatient (REF) | payer MEDICARE, MEDICAID, SELFPAY ==
--- OUTSIDE RECORDS SUMMARY | 2025-06-05 07:49 | XMS_ITS | Clinical Summary ---
Author Organization [facility] Address [address] [place] [address] Phone Care Team Providers Care Data Management Engineer Name Role Phone Mi Puentes MD Primary Care Provider [phone] Allergies Active Allergy Reactions Criticality Noted Date [...] 2 (mild) Essential (primary) hypertension 08/27/2021 Immunizations Immunization Administration Dates Next Due Pneumococcal Conjugate 13-Valent [...] 72 08/28/2021 9:12 AM EDT Temperature 35.4 C (95.8 F) 08/28/2021 9:12 AM EDT Respiratory Rate - - Oxygen Saturation - - Inhaled Oxygen Concentration - - Weight - - Height - - Body Mass Index - - Plan of Treatment Health Maintenance Due Date Last Done Comments Breast Cancer Screening 1959 Colorectal Cancer Screening: Annual FOBT 2008 Colorectal Cancer Screening: Colonoscopy 2008 Colorectal Cancer Screening: Sigmoidoscopy 2008 Influenza Vaccine (#1) 2025 2, 09/05/2020, 09/01/2016, Additional history exists Pneumococcal Vaccine: 50+ Years (4 of 4 - PCV20 or PCV21) 08/10/2026 08/10/2021, 07/22/2015, 10/07/2010 Pneumococcal Vaccine: Peds (0 to 5 Years) and At-Risk Patients (6 to 49 Years) Discontinued 08/10/2021, 07/22/2015, 10/07/2010 Hepatitis B Vaccine Aged Out No longe r eligible based on patient's age to complete this topic Insurance Medicare Medicaid [place] Care Teams Data Management Engineer Relationship Specialty Start Date End Date Mi Puentes [facility] [place] [address] PCP - General Family Medicine 07/30/21
--- OUTSIDE RECORDS SUMMARY | 2025-06-05 07:49 | XMS_ITS | Clinical Summary ---
Author Organization [facility] Address [address] [id number] Phone Care Team Providers Care Field Training Agent Name Role Phone Mi Puentes MD Primary Care Provider [phone] Allergies Active Allergy Reactions Criticality Noted Date Comments Lactose 08/27/2021 Sulfa (Sulfonamide Antibiotics) 12/2022 Wound Dressings 08/27/2021 Medications dilTIAZem (CARDIZEM CD) 240 MG 24 hr capsule 01/20/2023 Active FLUoxetine (PROZAC) 40 MG capsule 12/13/2022 Active gabapentin (NEURONTIN) 300 MG capsule 11/22/2022 Active hydroCHLOROthiaz stacie (HYDRODIURIL) 25 MG tablet Take 25 mg by mouth. Active leflunomide (ARAVA) 20 MG tablet Take 20 mg by mouth. Active LORazepam (ATIVAN) 0.5 MG tablet Take 0.5 mg by mouth daily. 01/12/2023 Active metoprolol succinate (TOPROL-XL) 25 MG 24 hr tablet Take 12.5 mg by mouth. Active omeprazole (PRILOSEC) 20 MG capsule 11/03/2022 Active oxybutynin (DITROPAN) 5 MG tablet 01/22/2023 Active traMADoL (ULTRAM) 50 mg tablet 01/15/2023 Active Active Problems Problem Noted Date Diagnosed Date HSV-2 (herpes simplex virus 2) infection 023 Immunizations Immunization Administration Dates Next Due Influenza Quadrivalent Preservative Free IM 03/2020 Influenza Trivalent Preservative Free IM 016,07/26/2015 Influenza Trivalent w/ Preservative IM 1,09/22/2014 Pneumococcal polysaccharide PPSV23 08/10/2021 Zoster recombinant 11/15/2020,09/05/2020 Family History Medical History Relation Comments Cervical cancer Sister 1 in situ - clear as of 02/01/2023 Rectal cancer Sister 2 Relation Status Comments Sister 1 Sister 2 Alive Social History Tobacco Use Types Packs/Day Years Used Date Smoking Tobacco: Former Cigarettes Smokeless Tobacco: Former Quit: 1992 Alcohol Use Standard Drinks/Week Comments Yes 0 (1 standard drink = 0.6 oz pur e alcohol) occasionally Education Answer Date Recorded Are you interested in more education? Not on philippe e 02/26/2023 Are you concerned about learning? Not on file 02/26/2023 No 02/26/2023 No 02/26/2023 Digital Access Answer Date Recorded No 03/27/2023 No 03/27/2023 No 03/27/2023 Reliable internet access at home? Not on file 03/27/2023 Device with a working camera? Not on file Comments No Sex and Gender Information Value Date Recorded Sex Assigned at Not on file Legal Sex Female 9:49 PM EDT Gender Identity Not on file Sexual Orientation Not on file Last Filed Vital Signs Vital Sign Reading Time Taken Comments Blood Pressure 112/78 02/01/2023 9:21 AM EDT Pulse - - Temperature - - Respiratory Rate - - Oxygen Saturation - - Inhaled Oxygen Concentration - - Weight 107.7 kg (237 lb 6.4 oz) 02/01/2023 9:21 AM EDT Height 162.6 cm (5' 4 ) 02/01/2023 9:21 AM EDT Body Mass Index 40.75 02/01/2023 9:21 AM EDT Plan of Treatment Health Maintenance Due Date Last Done Comments LIPID PANEL 1959 POTASSIUM LEVEL 1959 DEPRESSION SCREENING 1971 SMOKING Hx and SMOKELESS TOBACCO SCREENING 1972 HEPATITIS C SCREENING 1977 HIV ONE-TIME SCREENING (18-65 YEARS) 1977 SCREENING FOR DIABETES 1994 MAMMOGRAM 1999 COLOGUARD 2004 COLONOSCOPY 2004 COLORECTAL CANCER SCREENING 2004 FIT TEST 2004 FOBT 2004 SIGMOIDOSCOPY 2004 VIRTUAL COLONOSCOPY 2004 RSV VACCINE (1 - Risk 60-74 years 1-dose series) 2019 COVID-19 VACCINE () 07/02/2024 08/18/2022, 04/22/2022, 07/29/2021, Additional history exists OSTEOPOROSIS SCREENING INITIAL (ONE-TIME) 2024 PNEUMOCOCCAL VACCINES (50+ years) (3 of 3 - PPSV23, PCV20 or PCV21) 08/10/2026 08/10/2021, 07/22/2015 Adult Td,Tdap Booster 06/21/2029 06/21/2019 ZOSTER VACCINES Completed 11/15/2020, 09/05/2020 HEPATITIS A VACCINES Aged Out No long er eligible based on patient's age to complete this topic HIB VACCINES Aged Out No longer eligi ble based on patient's age to complete this topic MENINGOCOCCAL VACCINES (ACWY) Aged Out No longer eligible based on patient's age to complete this topic MENINGOCOCCAL VACCINES (B) Aged Out N o longer eligible based on patient's age to complete this topic Medical Devices Not on file Insurance MEDICARE PART A & B [facility] MEDICARE PART A & [place] [facility] PART [facility] [place] PART A & B HEALTH MEDICARE PART A & B [address] [place], [place] [address]HEALTH MEDICARE PART A & [place] Care Teams Field Training Agent Relationship Specialty Start Date End Date Mi Puentes MD [address] [place] [id number] [email or web address] PCP - General Family Medicine 07/28/21 Additional Source Comments The information contained in this document represents components of the legal health record. It is not the complete legal health record.[facility]
--- OUTSIDE RECORDS SUMMARY | 2025-06-05 07:49 | XMS_ITS | Referral Summary ---
Author Organization [facility] Address [address] [id number] Care Team Providers Care Wallpaper Hanger Name Role Phone Brock Shaw DO Primary Care Provider [phone] Allergies Active Allergy Reactions Criticality Noted Date [...] 114 03/20/2024 1:20 PM EDT Temperature 36.7 C (98.1 F) 03/20/2024 1:12 PM EDT Respiratory Rate 16 03/20/2024 1:12 PM EDT Oxygen Saturation - - Inhaled Oxygen Concentration - - Weight 110.2 kg (243 lb) 03/20/2024 1:12 PM EDT Height 162.6 cm (5' 4 ) 03/20/2024 1:12 PM EDT Body Mass Index 41.71 03/20/2024 1:12 PM EDT Plan of Treatment Not on [place] [address] [place] [address] Care Teams Wallpaper Hanger Relationship Specialty Start Date End Date Brock Shaw DO [address] [place] [address] PCP - General 12/27/23
[2025-06-05 10:43] LABS: MANUAL DIFF FLAG NO
[2025-06-05 10:46] LABS: Hematocrit 37.5 % (37.0-47.0); Hemoglobin 11.9 g/dl (12.0-16.0); Imm Gran Abs Auto 0.05 X10*3/uL (0.00-0.03); Imm Gran Pct Auto 0.4 % (0.0-0.4); Lymphocytes Absolute Auto 3.5 X10*3/uL (1.2-4.9); Mean Corpuscular HGB Conc 31.7 g/dl (31.0-35.0); Mean Corpuscular Hemoglobin 26.9 pg (27.0-33.0); Mean Corpuscular Volume 84.7 fL (80.0-98.0); NRBC Abs Auto 0.000 X10*3/uL (0.0-0.012); NRBC Pct Auto 0.0 /100WBC (0.0-0.2); Platelet Count 299 X10*3/uL (160-400); Red Blood Count 4.43 X10*6/uL (4.20-5.50); White Blood Count 11.3 X10*3/uL (4.8-10.8)
[2025-06-05 11:02] LABS: Alanine Aminotransferase 11 U/L (0-31); Albumin Level 3.8 g/dL (3.5-5.0); Alkaline Phosphatase 100 U/L (39-117); Anion Gap 13 (12-20); Aspartate Amino Transferase 19 U/L (5-31); Blood Urea Nitrogen 18 mg/dL (9-16); Calcium 9.5 mg/dL (8.4-10.2); Carbon Dioxide 28 mmol/L (22-29); Chloride 102 mmol/L (96-108); Estimated Glomerular Filt Rate 54; Potassium 4.3 mmol/L (3.3-5.1); Sodium 139 mmol/L (135-145); Total Protein 7.5 g/dL (6.5-8.0)
[2025-06-05 11:27] LABS: HBS Num1 0.00 mIU/mL (0-7.99); HBc Num1 0.06 S/CO (0.00-0.79); HBsAGNum1 0.30 S/CO (0.00-0.99); Hepatitis A Antibody IgM 0.18 Index (0-0.79); Hepatitis B Surface Antigen Negative (Negative); ~HepC Num1 0.11 S/CO (0.00-0.79); ~Hepatitis A Antibody IgM Nonreactive (Nonreactive); ~Hepatitis B Surface Antibody NONREACTIVE (Nonreactive); ~Hepatitis C Antibody Nonreactive (Nonreactive)
== END 2025-06-05 07:48 | disposition home or self-care (01) ==
LOC: HO.10HDL 07:47
PROVIDERS: Visit Provider Student in an Organized Health Care Education/Training Program
DX: Z51.81 Encounter for therapeutic drug level monitoring (principal); M06.00 Rheumatoid arthritis without rheumatoid factor, unspecified site; Z79.69 Long term (current) use of other immunomodulators and immunosuppressants; Z11.59 Encounter for screening for other viral diseases; Z72.89 Other problems related to lifestyle
CPT/HCPCS: 36415; 80053; 85025; 85652; 86140; 86481; 86704; 86706; 86709; 86803; 87340

== ENCOUNTER 2025-06-08 14:01 | Outpatient (AMB) | payer MEDICARE, MEDICAID, SELFPAY ==
--- NOTE | 2025-06-08 14:02 | MHC.OFFVIS ---
Vital Signs 06/08/25 14:03 Height 5 ft 3 in Weight 232 lb 2.348 oz BMI 41.1 BP 134/82 Blood Pressure Location Rt brachial Position Sitting Pulse 102 H Pulse Source Pulse Oximeter Pulse Oximetry (%) 97 Oxygen Delivery Method Room Air Intake Visit Reasons: RA/Flare up Approved Intake Note: Patient presents for RA follow up, she states her hands are giving her a ton of trouble. Accompanied by: Nephew or Niece Allergies adhesive tape Adverse Reaction (Unknown, Verified 06/08/25 14:07) Rash lactose Adverse Reaction (Unknown, Verified 06/08/25 14:07) Unknown Sulfa (Sulfonamide Antibiotics) Adverse Reaction (Unknown, Verified 06/08/25 14:07) Unknown Medication List - Last Reconciled 06/08/25 by Orquidea David MD [arm brace 16 brace Wear nightly and as much as possible throughout the day] diltiazem HCl CD 240 mg PO DAILY finger splint wear nightly & as much as possible throughout the day fluoxetine 80 mg PO DAILY gabapentin 300 mg PO QID hydrochlorothiazide 25 mg PO DAILY leflunomide 20 mg PO DAILY lorazepam 0.5 mg PO DAILY metoprolol succinate ER 12.5 mg PO DAILY omeprazole 20 mg PO DAILY PRN oxybutynin chloride 2 tablets in AM, 2 tablet in PM orally; tramadol 50 - 100 mg PO Q6H PRN HPI Comments Details: Patient is a 64 y.o. 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 started on methotrexate, hydroxychlooquine and eventually leflunomide added. Humira added early 2021, hydroxychloroquine stopped. Humira stopped 06/2022. Hx bilateral TKR &THR 7430-425406/2022 hosp with resp failure, possible due to mtx , treated with IV and PO corticosteroids. leflunomide restarted. 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 Hypertension CKD (chronic kidney disease) Surgical History History of carpal tunnel surgery Status post fusion of wrist H/O bilateral hip replacements History of total knee replacement (TKR) Family History Mother Alzheimer's dementia with mood disturbance Hypertension Breast cancer Father Hypertension Type 2 diabetes mellitus Stroke Myocardial infarction Kidney disease Brother Colon cancer Sister Lymphoma Social History Alcohol intake: current Alcohol intake frequency: holidays/special occasions only Patient Tobacco Use Status: Former Tobacco user Second Hand Smoke Exposure: No Review of Systems Const Details: Review of Systems Constitutional: Denies fever, chills, weight loss ENT: Denies vision changes, eye pain or eye redness, dental caries, dry mouth GI: Denies nausea, vomiting, diarrhea, abdominal pain, change in BM Pulm: Denies SOB, BENAVIDES, hemoptysis, wheezing Cards: Denies chest pain, palpitations Skin: Denies Raynaud's, rash, nail changes, photosensitivity, MEN'S [employer] BOYS' [employer]OTH[employer] SALESPERSON: Denies headaches, weakness, paresthesias, recurrent falls MSK: as per HPI All other systems reviewed and are unremarkable except noted above Physical Exam Exam Exam: Vital signs reviewed Physical Examination CONSTITUITIONAL Patient alert and cooperative. Well appearing and in no apparent painful distress MSK Hands Right Hand: Unable to make a fist. Prominent synovial hypertrophy noted to the 2nd, 3rd and 4th MCPs. No obvious synovitis Left Hand: Able to make a fist. No swelling or tenderness to palpation of these joints. No deformities noted. Wrists Right Wrist: Fixed wrist Left Wrist: Decreased ROM. Synovial hypertrophy. No TTP Elbows Right Elbow: Full ROM. No swelling or TT of the elbow. cystic collection at the lateral aspect of the elbow, non tender. No TTP of the medial and lateral epicondyles Left Elbow: Full ROM. No swelling or TTP. No TTP of the medial and lateral epicondyles Shoulders Right shoulder: Full ROM. No swelling noted. No TTP of the AC joint, subacromial bursa or posterior shoulder Left shoulder: Full ROM. No swelling noted. No TTP of the AC joint, subacromial bursa or posterior shoulder Knees Right knee: No swelling noted. No TTP of the knee joint lie or pes anserine bursa Left knee: No swelling noted. No TTP of the knee joint lie or pes anserine bursa. Surgical scar noted anteriorly bilaterally Ankles Right ankle: Good ankle dorsiflexion and plantar flexion. No swelling. No TTP of the ankle joint Left ankle: Good ankle dorsiflexion and plantar flexion. No swelling. No TTP of the ankle joint Feet Right foot: Negative squeeze test Left foot: Negative squeeze test Tender points? No tenderness to palpation of the bilateral trapezius, supraspinatus, anterior costochondral junctions, bilateral suboccipital muscle insertions SKIN No rashes Vital Signs: Last Vital Signs Pulse 102 H 06/08/25 14:03 BP 134/82 06/08/25 14:03 Pulse Ox 97 06/08/25 14:03 Oxygen Delivery Method Room Air 06/08/25 14:03 BMI result Body Mass Index 41.1 Results Reviewed Results Reviewed: Laboratory Tests 01/30/25 06/05/25 09:50 07:50 WBC 11.3 H RBC 4.43 Hgb 11.9 L Hct 37.5 Plt Count 299 ESR 72 H Sodium 139 Potassium 4.3 Chloride 102 Carbon Dioxide 28 BUN 18 H Creatinine 1.02 Estimated GFR 54 AST 19 ALT 11 C-Reactive Protein 5.23 H 5.91 H Infectious serologies 02/23/23 06/05/25 12:14 07:50 Hepatitis A IgM Ab Nonreactive Hep Bs Antigen Negative Hep Bs Antibody NONREACTIVE Hep B Core Total Ab Nonreactive Hepatitis C Ab (EIA) Nonreactive TB Test (T-Spot) Com Negative Assessment & Plan Assessment & Plan (1) Seronegative rheumatoid arthritis: Comment: Onset around 2005. started on methotrexate, hydroxychlooquine and eventually leflunomide added. Humira added early 2021, hydroxychloroquine stopped. Humira stopped 06/2022. Hx bilateral TKR &THR 4727-539106/2022 hosp with resp failure, possible due to mtx , treated with IV and PO corticosteroids. leflunomide restarted. 08/2022 Code(s): M06.00 - Rheumatoid arthritis without rheumatoid factor, unspecified site Category: Medical Plan: #Seronegative Erosive and deforming RA Patient is a 64-year-old female with seronegative erosive and deforming rheumatoid arthritis here today for follow up. No evidence of active synovitis on examination but her inflammatory markers continue to increase and she complains of persistent joint pain. Will try another DMARD. Plan - Stop leflunomide 20mg daily - Tyenne 162mg SC every 2 weeks - RTC 4 months - Labs before visit: CBC, CMP, ESR, CRP, hepatitis panel, T spot (2) Osteoarthritis of knees, bilateral: Code(s): M17.0 - Bilateral primary osteoarthritis of knee Qualifiers: Osteoarthritis type: primary Qualified Code(s): M17.0 - Bilateral primary osteoarthritis of knee Plan: #Bilateral Knee OA Patient with bilateral knee osteoarthritis status post bilateral knee replacement. Pain resolved (3) Encounter for monitoring leflunomide therapy: Code(s): Z51.81 - Encounter for therapeutic drug level monitoring; Z79.69 - snf (current) use of other immunomodulators and immunosuppressants Plan: #Long-term leflunomide Discussed with patient the benefits and risks of leflunomide for managing the rheumatic condition Benefits include: - Reduced pain, maintenance of remission and reduction of flares Risks include: - GI upset especially diarrhea, skin rash, cytopenias, hepatotoxicity, weight loss, neuropathy Leflunomide is highly teratogenic. ?Has a very long half-life. ?Needs cholestyramine washout if there is desire for Initiation: ?CBC, BMP, LFTs, hepatitis-B and C serologies every 2-4 weeks for 3 months Monitoring: ?CBC, BMP, LFTs, hepatitis B and C serologies (4) Encounter for monitoring tocilizumab therapy: Code(s): Z51.81 - Encounter for therapeutic drug level monitoring; Z79.620 - snf (current) use of immunosuppressive biologic Plan: #Long-term Use of IL 6 Inhibitors: Tocilizumab/Sarilumab Discussed the risks and benefits of IL6 inhibitors with the management of this patient's rheumatic condition. Benefits include decreased pain, improved mortality, improved quality of life Risks include LFT abnormalities, elevated triglycerides, GI perforations Contraindicated in a patient with history of diverticulitis Monitoring: CBC, CMP, triglycerides Plan I spent 30 minutes reviewing the record and labs, taking a history, examining the patient, discussing the treatment plan, ordering diagnostic work up and documenting in the medical record Orders: Orders Comprehensive Met. Panel 4 Months Z79.899 - Other medical terminologist (current) drug therapy Lipid Panel 4 Months Z.89 - Other penitentiary (current) drug therapy C Reactive Protein 4 Months Z.89 - Other medical terminologist (current) drug therapy Erythrocyte Sedimentation Rate 4 Months Z79.89 - Other medical terminologist (current) drug therapy Complete Blood Count Auto Diff 4 Months Z79.899 - Other penitentiary (current) drug therapy Medications: New tocilizumab-aazg (Tyenne Autoinjector) 162 mg (0.9 mL) subcut Q2W 1.8 mL 5RF M06.00 - Rheumatoid arthritis without rheumatoid factor, unspecified site Discontinued leflunomide Discontinued Reason: Doctor's Order 20 mg PO DAILY 90 tabs 1RF M06.00 - Rheumatoid arthritis without rheumatoid factor, unspecified site Coding Level of Care Code Est Pt Level 4 (87704) Complex EM visit Add On G2211 Diagnoses Seronegative rheumatoid arthritis M06.00 Primary osteoarthritis of both knees M17.0 Osteoarthritis type: primary Encounter for monitoring leflunomide therapy Z51.81; Z79.69 Encounter for monitoring tocilizumab therapy Z51.81; Z79.620
[2025-06-08 14:03] VITALS: BP 134/82; PULSE 102; O2SAT 97; BMI 41.1
--- OUTSIDE RECORDS SUMMARY | 2025-06-08 14:03 | XMS_ITS | Clinical Summary ---
Author Organization [facility] Address [address] [place] [address] Phone Care Team Providers Care Purchaser Name Role Phone Mi Puentes MD Primary Care Provider [phone] Allergies Active Allergy Reactions Criticality Noted Date [...] topic Insurance Medicare Medicaid [place] Care Teams Purchaser Relationship Specialty Start Date End Date Mi Puentes [facility] [place] [address] PCP - General Family Medicine 07/30/21
--- OUTSIDE RECORDS SUMMARY | 2025-06-08 14:03 | XMS_ITS | Referral Summary ---
Author Organization [facility] Address [address] [id number] Care Team Providers Care Plant Maintenance Supervisor Name Role Phone Brock Shaw DO Primary Care Provider Allergies Active Allergy Reactions [...] Plan of Treatment Not on file [place] [address] [place] [address] Care Teams Plant Maintenance Supervisor Relationship Specialty Start Date End Date Brock Shaw DO [address] [place] [address] PCP - General 12/27/23
--- OUTSIDE RECORDS SUMMARY | 2025-06-08 14:04 | XMS_ITS | Clinical Summary ---
Author Organization [facility] Address [address] [id number] Phone Care Team Providers Care Leasing Representative Name Role Phone Mi Puentes MD Primary Care Provider [phone] Allergies Active Allergy Reactions Criticality Noted Date [...] 023 Immunizations Immunization Administration Dates Next Due INFLUENZA, SPLIT VIRUS, TRIVALENT PF 09/01/2016, 07/26/2015 INFLUENZA, SPLIT VIRUS, TRIVALENT W/ PRESERVATIV E IM 07/29/2021,09/22/2014 Influenza Quadrivalent Preservative Free IM 03/2020 Pneumococcal polysaccharide PPSV23 08/10/2021 Zoster recombinant 11/15/2020,09/05/2020 [...] 60-74 years 1-dose series) 2019 COVID-19 VACCINE ( season) 2024 08/18/2022, 04/22/2022, 07/29/2021, Additional history exists OSTEOPOROSIS [...] file Insurance MEDICARE PART A & B [facility] MEDICARE PART A & [place] & [place] & [place] PART A & B HEALTH MEDICARE PART A & [address] [place], [place] [address]HEALTH MEDICARE PART A & [place] Care Teams Leasing Representative Relationship Specialty Start Date End Date Mi Puentes MD [address] [place] [id number] [email or web address] PCP - General Family Medicine 07/28/21 Additional Source Comments The information contained in this document represents components of the legal health record. It is not the complete legal health record.[facility]
== END 2025-06-08 14:56 | disposition home or self-care (01) ==
LOC: HO.RHES 14:01
PROVIDERS: PCP Family Medicine; Visit Provider Student in an Organized Health Care Education/Training Program
DX: M06.00 Rheumatoid arthritis without rheumatoid factor, unspecified site (principal); M17.0 Bilateral primary osteoarthritis of knee; Z51.81 Encounter for therapeutic drug level monitoring; Z79.69 Long term (current) use of other immunomodulators and immunosuppressants; Z79.620 Long term (current) use of immunosuppressive biologic
CPT/HCPCS: 99214; G2211

== ENCOUNTER → 2025-06-08 14:01 | Outpatient (BNVA) | payer MEDICARE, MEDICAID, SELFPAY | PROVIDERS: PCP Family Medicine; Visit Provider Student in an Organized Health Care Education/Training Program | DX: M06.09 Rheumatoid arthritis without rheumatoid factor, multiple sites (principal); M17.0 Bilateral primary osteoarthritis of knee; Z51.81 Encounter for therapeutic drug level monitoring; Z79.69 Long term (current) use of other immunomodulators and immunosuppressants; Z79.620 Long term (current) use of immunosuppressive biologic; Z79.631 Long term (current) use of antimetabolite agent | CPT/HCPCS: 99212 ==

== ENCOUNTER 2025-07-21 08:40 | Emergency (ER) | payer MEDICARE, SELFPAY ==
[2025-07-21] VITALS (7 sets, daily range): BP systolic 142–170; BP diastolic 77–96; PULSE 68–78; RESP 15–18; TEMP 36.7–36.9; O2SAT 92–97; BMI 44.2
--- NOTE | ~2025-07-21 | CT_ITS ---
CLINICAL HISTORY: post reduction, check popliteal artery CT angio left lower extremity Comparison: CR - XR KNEE LT 2V - 07/21/25 10:21 EDT CR/UT - XR KNEE LT 2V - 07/21/25 09:06 EDT Findings: Beam hardening artifacts from the knee arthroplasty hardware limits evaluation of the popliteal artery. There is no identified dissection, aneurysm, significant stenosis or occlusion. No fracture or dislocation. No osseous lesion. Intact total knee arthroplasty. Moderate-sized knee joint effusion. There is no fluid collection. The muscles are normal in attenuation and bulk. Impression: Evaluation limited secondary to artifact. No identified dissection, aneurysm, significant stenosis or occlusion. This document has been electronically signed by: Kristine Blanton MD on 07/21/2025 14:11:41
--- NOTE | ~2025-07-21 | XR_ITS ---
CLINICAL HISTORY: post reduction AP and cross-table lateral views left knee Comparison: CR/SD - XR KNEE LT 2V - 07/21/25 09:06 EDT Findings: Successful reduction of the knee joint Total knee arthroplasty intact Moderate suprapatellar joint effusion. Soft tissue swelling. No unusual radiopaque foreign body. Impression: 1. Successful reduction of the knee joint. Moderate suprapatellar joint effusion. This document has been electronically signed by: Luis Brown MD on 07/21/2025 12:43:43
--- NOTE | ~2025-07-21 | XR_ITS ---
CLINICAL HISTORY: pain, felt a pop, h o dislocation AP and cross-table lateral views left knee Comparison: None Findings: Posterior dislocation of the tibia relative to the femur. Total knee arthroplasty hardware present. No acute fractures demonstrated. No suprapatellar joint effusion. No prepatellar soft tissue swelling. Normal bone mineralization. No unusual radiopaque foreign body. Impression: 1. Posterior dislocation of the knee. This document has been electronically signed by: Luis Brown MD on 07/21/2025 12:41:20
--- NOTE | 2025-07-21 08:47 | ED.LOWEXIN ---
HPI - Extremity Injury (Lower) General Chief Complaint: Extremity Problem Stated Complaint: L KNEE DISLOCATION/PAIN MOVING IN BED,+REPLACEMENT Time Seen by Provider: 07/21/25 08:41 Source: patient and EMS Mode of arrival: EMS Limitations: no limitations History of Present Illness ED Provider: Jazmine Erwin APRN HPI Narrative: 64 yo female with a history of HTN, CKD, polyarticular OA s/p bilateral TKR and THR w/ RA on [place] SQ q2 weeks here with complaints of left knee pain. Patient reports she was moving in her bed and felt a pop in her knee. She has history of dislocations in the past. Now pain and difficulty moving the extremity. No associated weakness, numbness, tingling with this. Takes tramadol at home PRN for pain (100mg). Took APAP prior to arrival, has not taken tramadol. Patient reports she had a L TKR in 2009 at [facility] with Dr Du. Related Data Home Medications ?Medication ?Instructions ?Recorded ?Confirmed diltiazem HCl 240 mg 240 mg PO DAILY 02/18/23 06/08/25 capsule,extended release 24 hr fluoxetine 40 mg capsule 80 mg PO DAILY 02/18/23 06/08/25 hydrochlorothiazide 25 mg tablet 25 mg PO DAILY 02/18/23 06/08/25 lorazepam 0.5 mg tablet 0.5 mg PO DAILY 02/18/23 06/08/25 metoprolol succinate 25 mg 12.5 mg PO DAILY 02/18/23 06/08/25 tablet,extended release 24 hr tramadol 50 mg tablet 50 - 100 mg PO Q6H PRN Pain 02/18/23 06/08/25 omeprazole 20 mg capsule,delayed 20 mg PO DAILY PRN Acid Reflux 06/08/25 06/08/25 release oxybutynin chloride 5 mg tablet See Rx Instructions PO .COMPLEX 06/08/25 06/08/25 Previous Rx's ?Medication ?Instructions ?Recorded arm brace #1 ea 07/10/24 finger splint #1 ea 07/10/24 gabapentin 300 mg capsule 300 mg PO QID #360 caps 07/09/25 tocilizumab 162 mg/0.9 mL 162 mg (0.9 mL) subcut Q2W #1.8 mL 07/09/25 subcutaneous pen injector (Actemra ACTPen) walker #1 ea 07/21/25 Allergies Allergy/AdvReac Type Severity Reaction Status Date / Time adhesive tape AdvReac Unknown Rash Verified 07/21/25 08:51 lactose AdvReac Unknown Unknown Verified 07/21/25 08:51 Sulfa (Sulfonamide AdvReac Unknown Unknown Verified 07/21/25 08:51 Antibiotics) Review of Systems Review of Systems: Yes all other systems are reviewed and are negative Constitutional: Constitutional: Reports no additional constitutional complaints, Denies body ache(s), Denies chills, Denies fever(s), Denies headache(s) and Denies weakness Eyes: Eyes: Reports no additional eye complaints and Denies change in vision ENT: Reports system reviewed and no additional complaints, except as documented, Denies dizziness, Denies headache(s), Denies nasal congestion, Denies nasal discharge and Denies neck pain Cardiovascular: Cardiovascular: Reports no additional cardiovascular complaints, Denies chest pain, Denies leg edema and Denies dyspnea Respiratory: Respiratory: Reports no additional respiratory complaints, Denies cough and Denies dyspnea Gastrointestinal: Gastrointestinal: Reports no additional gastrointestinal complaints, Denies abdominal pain, Denies diarrhea, Denies nausea and Denies vomiting Genitourinary: Genitourinary: Reports no additional female genitourinary complaints and Denies urinary incontinence Musculoskeletal: Musculoskeletal: Reports no additional musculoskeletal complaints, Denies back pain, Reports arthralgias, Reports joint swelling, Reports limited range of motion, Denies neck pain, Denies numbness and Denies tingling Integumentary/Breasts: Skin/Breast: Reports system reviewed and no additional complaints, except as docu and Denies rash Neurologic: Reports system reviewed and no additional complaints, except as documented, Denies Abnormal speech present, Denies dizziness, Denies headache(s), Denies numbness, Denies tingling and Denies weakness [facility] Past Medical History Attestation statement: The following information was validated with the patient. 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 Hypertension CKD (chronic kidney disease) Surgical History History of carpal tunnel surgery Status post fusion of wrist H/O bilateral hip replacements History of total knee replacement (TKR) Family History Family History Mother Alzheimer's dementia with mood disturbance Hypertension Breast cancer Father Hypertension Type 2 diabetes mellitus Stroke Myocardial infarction Kidney disease Brother Colon cancer Sister Lymphoma Social History Social History Alcohol intake: current Alcohol intake frequency: does not drink Patient Tobacco Use Status: Former Tobacco user Smoked in Last 30 Days: No Second Hand Smoke Exposure: No Use of substances other than those prescribed or required for medical reasons: Yes Substance Use Type: Marijuana Advance Directives: No Advance Directives Information Provided: Yes Physical Exam Vital Signs: Vital Signs: Last Vital Signs Temp 98.1 F 07/21/25 15:55 Pulse 71 07/21/25 15:55 Resp 15 07/21/25 15:55 BP 151/78 H 07/21/25 15:55 Pulse Ox 92 07/21/25 15:55 O2 Del Method Room Air 07/21/25 15:55 BMI result Body Mass Index 44.2 Const: General: cooperative, healthy appearing, comfortable and no acute distress Orientation/consciousness: patient oriented x3 Limitations: no limitations HEENT: Head: Yes normal to inspection Ears: hearing grossly normal bilaterally General nose exam: Normal external nose present Face and sinus: Yes normal facial exam Mouth: Normal oral and palatal mucosa present Throat: Yes posterior oropharynx normal Eyes: General: appearance normal, both eyes and all related structures Pupils: Equal, round and reactive pupils present Neck: Neck: Yes normal visual inspection Chest: Chest palpation & inspection: normal inspection of the chest Resp: Effort & Inspection: normal respiratory effort Auscultation: clear to auscultation bilaterally Cardio: Rate: regular rate Rhythm: regular rhythm Peripheral pulses: Peripheral pulses 2+ throughout GI: Inspection: Yes normal to inspection Palpation (GI): Soft to palpation and nontender Auscultation: normal bowel sounds Back/Spine/Pelvis: Thoracic/Lumbar Spine: thoracic and lumbar spine normal to inspection Skin: General skin exam: no rashes or lesions noted Neuro: General: patient oriented x3, no focal motor deficits and normal sensation to monofilament Cranial nerves: Yes Equal, round and reactive pupils present Cognition (Neuro): normal cognition Speech: No Abnormal speech present Gait exam (Neuro): Normal gait present Motor exam (neuro): 5/5 motor strength present throughout Extrem: Other: Knee is held in partial flexion. Unable to extend the knee. Pain on palpation over anterior knee. CMS intact distally. Course Course Course Narrative: [id number] shows dislocation. My attending was notified as well as our orthopedic team. She is neurovascularly intact. We will attempt a reduction at the bedside. Patient requesting some IV anti-anxiety medication. She is quite calm and seems comfortable. Post-reduction will obtain ct imaging. Reevaluation(s) Reevaluation #1: 1400- CT shows Findings: Beam hardening artifacts from the knee arthroplasty hardware limits evaluation of the popliteal artery. There is no identified dissection, aneurysm, significant stenosis or occlusion. No fracture or dislocation. No osseous lesion. Intact total knee arthroplasty. Moderate-sized knee joint effusion. There is no fluid collection. The muscles are normal in attenuation and bulk. Impression: Evaluation limited secondary to artifact. No identified dissection, aneurysm, significant stenosis or occlusion. Patient was placed in a knee immobilizer and given a walker and she was able to walk independently in the emergency room. She feels comfortable going home. Recommend that she follow up outpatient with Orthopedics a [facility]. Reviewed worrisome signs and symptoms of when to return to the emergency room. Comfortable plan for discharge home Medications Administered Discontinued Medications Generic Name Dose Route Start Last Admin Trade Name Freq PRN Reason Stop Dose Admin Diazepam 5 mg 07/21/25 09:53 07/21/25 09:58 Diazepam 10 Mg/2 Ml Cartridge IVPUSH 07/21/25 09:54 5 mg STAT STA Administration Iohexol 100 ml 07/21/25 11:19 07/21/25 11:19 Iohexol 350 Mg/Ml 100 Ml Infus..Btl IV 07/21/25 11:20 100 ml ONCE ONE Administration Oxybutynin Chloride 5 mg 07/21/25 14:20 07/21/25 15:00 Oxybutynin Chloride Er 5 Mg Tab.Er.24 PO 07/21/25 14:21 5 mg ONCE ONE Administration Tramadol HCl 100 mg 07/21/25 09:14 07/21/25 09:22 Tramadol Hcl 50 Mg Tablet PO 09/20/25 09:15 100 mg ONCE ONE Administration Medical Decision Making Medical Decision Making [facility] Narrative: 64 yo female with a history of HTN, CKD, polyarticular OA s/p bilateral TKR and THR w/ RA on [place] SQ q2 weeks here with complaints of left knee pain. Patient reports she was moving in her bed and felt a pop in her knee. She has history of dislocations in the past. Now pain and difficulty moving the extremity. No associated weakness, numbness, tingling with this. Takes tramadol at home PRN for pain (100mg). Took APAP prior to arrival, has not taken tramadol. Patient reports she had a L TKR in 2009 at [facility] with Dr Du. Knee is held in partial flexion. Unable to extend the knee. Pain on palpation over anterior knee. CMS intact distally. Will obtain x-rays, provide analgesia Differential Diagnosis Differential Diagnoses: The differential diagnosis associated with the presentation includes dislocation, fracture, sprain, strain Low suspicain for vascular injury Admission/Observation Consideration of admission/observation: Escalation of care including admission/observation considered Consult Healthcare Provider Management of the patient was discussed with: Environmental Test Technician Mason [facility] orthopedic at bedside. We discussed this patient together. Recommend post reduction if neurovasculary intact, dc home in knee immobolizer/walker with f/u with her orthopedics at [facility] Lab Data [facility] Lab Attestation statement: I reviewed the patient's lab results. 07/21/25 09:52 07/21/25 09:52 Labs: Lab Results 07/21/25 Range/Units 09:52 WBC 11.5 H (4.8-10.8) X10*3/uL RBC 4.39 (4.20-5.50) X10*6/uL Hgb 11.9 L (12.0-16.0) g/dl Hct 36.3 L (37.0-47.0) % MCV 82.7 (80.0-98.0) fL MCH 27.1 (27.0-33.0) pg MCHC 32.8 (31.0-35.0) g/dl RDW 16.1 H (11.0-16.0) % Plt Count 263 (160-400) X10*3/uL MPV 8.7 L (9.4-12.3) fL Immature Gran % (Auto) 0.6 H (0.0-0.4) % Neut % (Auto) 59.8 (45-73) % Lymph % (Auto) 23.9 (20-40) % [place] % (Auto) 8.9 (2-11) % Eos % (Auto) 5.8 H (0-4) % Baso % (Auto) 1.0 (0-2) % Lymph # (Auto) 2.8 (1.2-4.9) X10*3/uL [place] # (Auto) 1.0 (0.1-1.2) X10*3/uL Eos # (Auto) 0.7 H (0.0-0.4) X10*3/uL Baso # (Auto) 0.1 (0.0-0.2) X10*3/uL Abs Immat Gran (auto) 0.07 H (0.00-0.03) X10*3/uL Absolute Neuts (auto) 6.9 (2.0-8.3) x10*3/uL Absolute Nucleated RBC 0.000 (0.0-0.012) X10*3/uL Nucleated RBC % (auto) 0.0 (0.0-0.2) /100WBC Sodium 136 (135-145) mmol/L Potassium 5.2 H D (3.3-5.1) mmol/L Chloride 107 (96-108) mmol/L Carbon Dioxide 21 L (22-29) mmol/L Anion Gap 13 (12-20) BUN 24 H (9-16) mg/dL Creatinine 0.96 (0.5-1.4) mg/dL Estim Creat Clear Calc 70.7 Estimated GFR 58 Random Glucose 109 (60-115) mg/dL Calcium 9.0 (8.4-10.2) mg/dL Independent Interpretation I performed an independent interpretation of an: Plain X-Ray Interpretation: I independently reviewed the x-ray/CT scan and agree with the radiology report Radiology Impression Discussion of test interpretation with radiology: I have reviewed the radiologist's reading. Radiologist Impression: [address] [address] XRay Report Signed Patient: Sharad Al MR#: [id number] : 1960 Acct:[id number] Age/Sex: 64 / F ADM Date: 07/21/25 Loc: HO.ED Attending Dr: Ordering Physician: Jazmine Erwin NP Date of Service: 07/21/25 Procedure(s): XR knee LT 2V Accession Number(s): [id number] cc: Jazmine Erwin BLOW DOWN HELPER; Colin,Brock DO~ Reason for Exam: pain, felt a pop, h/o dislocation CLINICAL HISTORY: pain, felt a pop, h o dislocation AP and cross-table lateral views left knee Comparison: None Findings: Posterior dislocation of the tibia relative to the femur. Total knee arthroplasty hardware present. No acute fractures demonstrated. No suprapatellar joint effusion. No prepatellar soft tissue swelling. Normal bone mineralization. No unusual radiopaque foreign body. Impression: 1. Posterior dislocation of the knee. [address] [address] XRay Report Signed Patient: Sharad Al MR#: [id number] : 1960 Acct:[id number] Age/Sex: 64 / F ADM Date: 07/21/25 Loc: HO.ED Attending Dr: Ordering Physician: Jazmine Erwin NP Date of Service: 07/21/25 Procedure(s): XR knee LT 2V Accession Number(s): [id number] cc: Jazmine Erwin BLOW DOWN HELPER; Colin,Brock DO~ Reason for Exam: post reduction CLINICAL HISTORY: post reduction AP and cross-table lateral views left knee Comparison: CR/AZ - XR KNEE LT 2V - 07/21/25 09:06 EDT Findings: Successful reduction of the knee joint Total knee arthroplasty intact Moderate suprapatellar joint effusion. Soft tissue swelling. No unusual radiopaque foreign body. Impression: 1. Successful reduction of the knee joint. Moderate suprapatellar joint effusion. [address] [address] [address] Scan Report Signed Patient: Sharad Al MR#: [id number] : 1960 Acct:[id number] Age/Sex: 64 / F ADM Date: 07/21/25 Loc: HO.ED Attending Dr: Ordering Physician: Jazmine Erwin NP Date of Service: 07/21/25 Procedure(s): CT angio LE LT Accession Number(s): [id number] cc: Jazmine Erwin NP; Brock Shaw Report Number: [id number]: Total DLP = 0.00 mGy-cm Reason for Exam: post reduction, check popliteal artery CLINICAL HISTORY: post reduction, check popliteal artery CT angio left lower extremity Comparison: CR - XR KNEE LT 2V - 07/21/25 10:21 EDT CR/AZ - XR KNEE LT 2V - 07/21/25 09:06 EDT Findings: Beam hardening artifacts from the knee arthroplasty hardware limits evaluation of the popliteal artery. There is no identified dissection, aneurysm, significant stenosis or occlusion. No fracture or dislocation. No osseous lesion. Intact total knee arthroplasty. Moderate-sized knee joint effusion. There is no fluid collection. The muscles are normal in attenuation and bulk. Impression: Evaluation limited secondary to artifact. No identified dissection, aneurysm, significant stenosis or occlusion. Independent Historian Clinical information obtained from an independent historian. History obtained from or confirmed by: EMS Procedures Orthopedic Joint Reduction Joint #1: Time Out Performed: Yes Side: left Joint Reduction Location: other (knee) Analgesia: other (Valium 5mg IV) Technique used: traction/counter-traction Post-reduction neuro exam: intact Post-reduction vascular: intact Post Reduction X-Ray Obtained: Yes Post Reduction X-Ray Results: reduced Splint Applied: Yes (knee immobolizer) Patient Tolerated Procedure: well Orthopedic Splinting/Casting Injury #1: Side: left Lower Extremity Injury Location: knee Lower Extremity Immobilizer: knee immobilizer and AirCast Other Orthopedic Equipment: walker Discharge Plan Discharge Clinical Impression: Dislocated knee Patient Disposition: Home, Self-Care Instructions: Knee Dislocation (ED) Additional Instructions: Follow-up with orthopedic office at [facility] Use the immobilizer and use a walker for movement Elevate the extremity Apply ice as needed Continue your home medication Prescriptions: New (DME) walker Misc See Rx Instructions .Route Qty: 1 0RF Rx Instructions: As directed No Action (DME) arm brace See Rx Instructions .Route .MEDSUPPLY Qty: 1 0RF Rx Instructions: 16 brace Wear nightly and as much as possible throughout the day (DME) finger splint Misc See Rx Instructions .Route Qty: 1 0RF Rx Instructions: wear nightly & as much as possible throughout the day gabapentin 300 mg capsule 300 mg PO QID Qty: 360 1RF Actemra ACTPen 162 mg/0.9 mL pen injector 162 mg subcut Q2W Qty: 1.8 5RF diltiazem HCl 240 mg capsule,extended release 24hr 240 mg PO DAILY tramadol 50 mg tablet 50 - 100 mg PO Q6H PRN (Reason: Pain) lorazepam 0.5 mg tablet 0.5 mg PO DAILY metoprolol succinate 25 mg tablet extended release 24 hr 12.5 mg PO DAILY fluoxetine 40 mg capsule 80 mg PO DAILY hydrochlorothiazide 25 mg tablet 25 mg PO DAILY omeprazole 20 mg capsule,delayed release(DR/EC) 20 mg PO DAILY PRN (Reason: Acid Reflux) oxybutynin chloride 5 mg tablet See Rx Instructions PO .COMPLEX Rx Instructions: 2 tablets in AM, 2 tablet in PM orally; Referrals: [facility] [Outside] Brock Shaw DO [Primary Care Provider, Internal Medicine] Interventions: ED Discharge Assessment Last Done: 07/21/25 15:55 Discharge Date/Time: 07/21/25 15:55 Print Language: Burundian
--- OUTSIDE RECORDS SUMMARY | 2025-07-21 09:24 | XMS_ITS | Clinical Summary ---
Author Organization [facility] Address [address] [place] [address] Phone Care Team Providers Care Learn To Swim Instructor Name Role Phone Mi Puentes MD Primary Care Provider [phone] Allergies Active Allergy Reactions Criticality Noted Date [...] topic Insurance Medicare Medicaid [place] Care Teams Learn To Swim Instructor Relationship Specialty Start Date End Date [facility] [place] [address] PCP - General Family Medicine 07/30/21
--- OUTSIDE RECORDS SUMMARY | 2025-07-21 09:24 | XMS_ITS | Clinical Summary ---
Author Organization [facility] Address [address] [id number] Care Team Providers Care Photo Tech Name Role Phone Brock Shaw DO Primary Care Provider [phone] Allergies Active Allergy Reactions Criticality Noted Date [...] (3 of 3) 01/10/2021 021, 11/15/2020, 09/05/2020 Alcohol/Substance Use Screening 11/01/2024 Depression Screening and Follow-Up 11/01/2024 Health Care Proxy Review 11/01/2024 Social Drivers of Health Annual Screening 11/01/2024 COVID-19 Vaccine ( season) 2025 10/06/2023, 08/18/2022, 04/22/2022, Additional history exists Influenza Vaccine (#1) 2025 , 08/18/2022, 07/29/2021, Additional history exists Cervical Cancer Screening 02/01/2026 Pap Smear 02/01/2026 02/01/2023 Pneumococcal Vaccine: 50+ Years (3 of 3 - PCV20 or PCV21) 08/10/2026 08/10/2021, 07/22/2015 DTaP,Tdap,and Td Vaccines (2 - Td or Tdap) 06/21/2029 06/21/2019 RSV Vaccine (60+ years old and patients) Completed 10/06/2023 Hepatitis B Vaccines Aged Out No long er eligible based on patient's age to complete this topic Insurance [facility] Care Teams Photo Tech Relationship Specialty Start Date End Date Brock Shaw DO [address] [place] [address] PCP - General 12/27/23
--- OUTSIDE RECORDS SUMMARY | 2025-07-21 09:25 | XMS_ITS | Clinical Summary ---
Author Organization [facility] Address [address] [id number] Phone Care Team Providers Care Hydro Electric Station Operator Name Role Phone Mi Puentes MD Primary Care Provider [phone] Allergies Active Allergy Reactions Criticality Noted Date [...] - Risk 60-74 years 1-dose series) 2019 OSTEOPOROSIS SCREENING INITIAL (ONE-TIME) 2024 INFLUENZA VACCINE (#1) 2025 2, 07/29/2021, 09/05/2020, Additional history exists COVID-19 VACCINE ( season) 2025 08/18/2022, 04/22/2022, 07/29/2021, Additional history exists PNEUMOCOCCAL VACCINES (50+ years) (3 of 3 [...] file Insurance MEDICARE PART A & B [facility] MEDICARE PART A & B HEALTH MEDICARE PART A & [place] [address] [place] [address]HEALTH MEDICARE PART A & B [place] [facility] [place] & B [employer] MEDICARE PART [place] & [place] Care Teams Hydro Electric Station Operator Relationship Specialty Start Date End Date Mi Puentes MD [address] [place] [phone] [email or web address] PCP - General Family Medicine 07/28/21 Additional Source Comments The information contained in this document represents components of the legal health record. It is not the complete legal health record.[facility]
[2025-07-21 09:56] LABS: MANUAL DIFF FLAG NO
[2025-07-21 09:57] LABS: Hematocrit 36.3 % (37.0-47.0); Hemoglobin 11.9 g/dl (12.0-16.0); Imm Gran Abs Auto 0.07 X10*3/uL (0.00-0.03); Imm Gran Pct Auto 0.6 % (0.0-0.4); Lymphocytes Absolute Auto 2.8 X10*3/uL (1.2-4.9); Mean Corpuscular HGB Conc 32.8 g/dl (31.0-35.0); Mean Corpuscular Hemoglobin 27.1 pg (27.0-33.0); Mean Corpuscular Volume 82.7 fL (80.0-98.0); NRBC Abs Auto 0.000 X10*3/uL (0.0-0.012); NRBC Pct Auto 0.0 /100WBC (0.0-0.2); Platelet Count 263 X10*3/uL (160-400); Red Blood Count 4.39 X10*6/uL (4.20-5.50); White Blood Count 11.5 X10*3/uL (4.8-10.8)
[2025-07-21] MEDS: diazePAM 10 MG/2 ML CARTRIDGE 5 MG IVPUSH (09:58)
--- NOTE | 2025-07-21 10:14 | PC.NURSE ---
Left knee reduction performed, pt out of room for repeat imaging to confirm reduction. Pt tolerated well. VSS
[2025-07-21 10:27] LABS: Anion Gap 13 (12-20); Blood Urea Nitrogen 24 mg/dL (9-16); Calcium 9.0 mg/dL (8.4-10.2); Carbon Dioxide 21 mmol/L (22-29); Chloride 107 mmol/L (96-108); Creatinine Clr Calc Pharmacy 70.7; Estimated Glomerular Filt Rate 58; Potassium 5.2 mmol/L (3.3-5.1); Sodium 136 mmol/L (135-145)
[2025-07-21] MEDS: iohexoL 350 MG/ML 100 ML INFUS..BTL IV (11:19)
[2025-07-21] MEDS: oxyBUTYnin chloride ER 5 MG TAB.ER.24 PO (15:00)
== END 2025-07-21 15:55 | disposition home or self-care (01) ==
PROVIDERS: Nurse Practitioner Family; Emergency Provider Emergency Medicine; PCP Family Medicine
DX: S83.105A Unspecified dislocation of left knee, initial encounter (principal); M25.562 Pain in left knee; R11.0 Nausea; X58.XXXA Exposure to other specified factors, initial encounter; Y93.9 Activity, unspecified; Y92.9 Unspecified place or not applicable; Y99.8 Other external cause status
CPT/HCPCS: 27550; 29505; 36415; 73560; 73706; 80048; 85025; 96361; 96374; 99284; J3360; Q9967

== ENCOUNTER → 2025-07-21 08:53 | Outpatient (BNV) | payer MEDICARE, SELFPAY | PROVIDERS: Emergency Provider Emergency Medicine; PCP Family Medicine; Visit Provider Radiology Diagnostic Radiology | DX: S83.105A Unspecified dislocation of left knee, initial encounter (principal); M25.462 Effusion, left knee; Z98.890 Other specified postprocedural states | CPT/HCPCS: 73560; 73706 ==

== ENCOUNTER 2025-10-16 11:54 | Outpatient (REF) | payer MEDICAID, SELFPAY ==
[2025-10-16 12:07] LABS: MANUAL DIFF FLAG NO
[2025-10-16 12:23] LABS: Hematocrit 41.3 % (37.0-47.0); Hemoglobin 13.2 g/dl (12.0-16.0); Imm Gran Abs Auto 0.08 X10*3/uL (0.00-0.03); Imm Gran Pct Auto 0.7 % (0.0-0.4); Lymphocytes Absolute Auto 4.2 X10*3/uL (1.2-4.9); Mean Corpuscular HGB Conc 32.0 g/dl (31.0-35.0); Mean Corpuscular Hemoglobin 27.9 pg (27.0-33.0); Mean Corpuscular Volume 87.3 fL (80.0-98.0); NRBC Abs Auto 0.000 X10*3/uL (0.0-0.012); NRBC Pct Auto 0.0 /100WBC (0.0-0.2); Platelet Count 318 X10*3/uL (160-400); Red Blood Count 4.73 X10*6/uL (4.20-5.50); White Blood Count 11.0 X10*3/uL (4.8-10.8)
[2025-10-16 12:51] LABS: Alanine Aminotransferase 14 U/L (0-31); Albumin Level 3.8 g/dL (3.5-5.0); Alkaline Phosphatase 103 U/L (39-117); Anion Gap 12 (12-20); Aspartate Amino Transferase 28 U/L (5-31); Blood Urea Nitrogen 29 mg/dL (9-16); Calcium 9.7 mg/dL (8.4-10.2); Carbon Dioxide 28 mmol/L (22-29); Chloride 103 mmol/L (96-108); Cholesterol 236 mg/dL (<200); Estimated Glomerular Filt Rate 41; HDL Cholesterol 44 mg/dL (>40); Potassium 4.6 mmol/L (3.3-5.1); Sodium 138 mmol/L (135-145); Total Protein 7.5 g/dL (6.5-8.0); Triglycerides 191 mg/dL (<150)
--- OUTSIDE RECORDS SUMMARY | 2025-10-16 15:46 | XMS_ITS | Clinical Summary ---
Author Organization [facility] Address [address] [place] [address] Phone Care Team Providers Care Assembler Musical Equipment Name Role Phone Brock Shaw DO Primary Care Provider Allergies Active Allergy Reactions Criticality Noted Date Comments Lactose 08/27/2021 Sulfa (Sulfonamide Antibiotics) 0412/2022 Wound Dressings 08/27/2021 Medications dilTIAZem (CARDIZEM CD) 240 MG 24 hr capsule 01/20/2023 Ac tive FLUoxetine (PROZAC) 40 MG capsule 12/13/2022 Active gabapentin (NEURONTIN) 300 MG capsule 11/22/2022 Active hydroCHLOROthiazi de (HYDRODIURIL) 25 MG tablet Take 25 mg [...] traMADoL (ULTRAM) 50 mg tablet 01/15/2023 Active ferrous sulfate 325 mg (65 mg point lay ira iron) EC tablet Take 325 mg by mouth. Active hydroxychloroquin e (PLAQUENIL) 200 mg tablet Take 200 mg by mouth. Active methotrexate (TREXALL) 10 MG tablet Take 20 mg by mouth. Active tocilizumab (ACTEMRA) 162 mg/0.9 mL subcutaneous injection syringe Inject 162 mg under the skin once. Active tocilizumab-aazg (TYENNE) 162 mg/0.9 mL subcutaneous injection syringe 162 mg. 08/22/2025 A ctive Active Problems Problem Noted Date Diagnosed Date HSV-2 (herpes simplex virus 2) infection 023 Encounters Date Type Department Care Team Description 08/30/2025 2:48 PM EDT - 08/30/2025 11:59 PM EDT Hospital Encounter [facility] [address] [place] [address] Donato Mccauley MD Discharge Disposition: Home or Self Care 08/30/2025 11:00 AM EDT Office Visit [facility] Department of Orthopaedics [address] [place] [address] Donato Mccauley MD Instability of internal left knee prosthesis, initial encounter (Primary Dx); History of left knee replacement; Primary osteoarthritis of both knees; History of bilateral knee replacement 08/30/2025 10:30 AM EDT - 08/30/2025 2:47 PM EDT Hospital Encounter [facility] Diagnostic X-ray Imaging, [place] [address] [place] [address] Donato Mccauley MD Discharge Disposition: Home or Self Care 08/30/2025 9:39 AM EDT - 08/30/2025 10:29 AM EDT Hospital Encounter [facility] Phlebotomy, [place] [address] [place] [address] Donato Mccauley MD Discharge Disposition: Home or Self Care 08/24/2025 Orders Only [facility] Department of Orthopaedics [address] [place] [address] Francis Camara MA Pain (Primary Dx) 08/08/2025 Ancillary Orders [facility] [address] [place] [address] Unknown, UnknownMD 08/08/2025 Ancillary Orders [facility] [address] [place] [address] Unknown, UnknownMD 08/08/2025 Ancillary Orders [facility] [address] [place] [address] Phyllis, Phyllis, 08/07/2025 11:00 AM EDT Office Visit [facility] [address] [place] [id number] Sven Wick MD Loosening of prosthesis of left total knee replacement, initial encounter (Primary Dx); Instability of internal left knee prosthesis, initial encounter 07/21/2025 12:10 AM EDT - 07/21/2025 11:59 PM EDT Hospital Encounter [facility] [address] [place] [address] Unknown, Unknown, MD Discharge Disposition: Home or Self Care 07/21/2025 12:05 AM EDT - 07/21/2025 12:09 AM EDT Hospital Encounter [facility] [address] [place] [address] Unknown, Unknown, MD Discharge Disposition: Home or Self Care 07/21/2025 - 07/21/2025 12:04 AM EDT Hospital Encounter [facility] [address] [place] [address] Unknown, Unknown, MD Discharge Disposition: Home or Self Care from Last 3 Months Immunizations Immunization Administration Dates Next Due INFLUENZA, [...] Sex Female 9:49 PM EDT Gender Identity Female 08/25/2025 9:03 AM EDT Sexual Orientation Not on file Last Filed Vital Signs Vital Sign Reading Time Taken Comments Blood Pressure 112/78 02/01/2023 9:21 AM EDT Pulse - - Temperature - - Respiratory Rate - - Oxygen Saturation - - Inhaled Oxygen Concentration - - Weight 106.1 kg (234 lb) 08/30/2025 11:45 AM EDT Height 162.6 cm (5' 4 ) 08/30/2025 11:45 AM EDT Body Mass Index 40.17 08/30/2025 11:45 AM EDT Plan of Treatment Health Maintenance [...] COLONOSCOPY 2004 RSV VACCINE (1 - Risk 50-74 years 1-dose series) 2009 PNEUMOCOCCAL VACCINES (50+ years) (2 of 2 - PCV) 08/10/2022 08/10/2021 OSTEOPOROSIS SCREENING INITIAL (ONE-TIME) 2024 INFLUENZA VACCINE (#1) 2025 , 07/29/2021, 09/05/2020, Additional history exists COVID-19 VACCINE ( season) 2025 08/18/2022, 04/22/2022, 07/29/2021, Additional history exists Adult Td,Tdap Booster 06/21/2029 06/21/2019 ZOSTER VACCINES [...] this topic Medical Devices Not on file Procedures Procedure Name Priority Date/Time Associated Diagnosis Comments XR KNEE 4 OR MORE VIEWS (LEFT) Routine 08/30/2025 11:32 AM EDT Pain SEDIMENTATION RATE (ESR) Routine 08/30/2025 9:52 AM EDT Loosening of prosthesis of left total knee replacement, initial encounter Instability of internal left knee prosthesis, initial encounter C-REACTIVE PROTEIN (CRP) Routine 08/30/2025 9:52 AM EDT Loosening of prosthesis of left total knee replacement, initial encounter Instability of internal left knee prosthesis, initial encounter XR LOWER EXTREMITY OUTSIDE (NO INTERPRETATION) Routine 07/21/2025 12:10 AM EDT XR LOWER EXTREMITY OUTSIDE (NO INTERPRETATION) Routine 07/21/2025 12:[address] LOWER EXTREMITY OUTSIDE (NO INTERPRETATION) Routine 07/21/2025 12:00 AM EDT from Last 3 Months Results * XR KNEE 4 OR MORE VIEWS (LEFT) (08/30/2025 11:32 AM EDT) Anatomical Region Laterality Modality Knee Left Computed Radiogr aphy 08/30/2025 3:07 PM EDT Impressions 08/30/2025 3:08 PM EDT Left total knee arthroplasty, no complication. Narrative 08/30/2025 3:08 PM EDT XR KNEE 4 OR MORE VIEWS (LEFT) Referring clinician's provided indication for this examination in Epic: Pain COMPARISON: Left knee radiographs 07/21/2025 FINDINGS: Left Knee: Total knee arthroplasty. Hardware is intact and in anatomic position. No periprosthetic lucency or fracture. Small effusion. Frontal evaluation of the right knee demonstrates total knee arthroplasty in anatomic alignment. Procedure Note Karen Stewart MD - 08/30/2025 XR KNEE 4 OR MORE VIEWS (LEFT) Referring clinician's provided indication for this examination in Epic:Pain COMPARISON: Left knee radiographs 07/21/2025 FINDINGS: Left Knee: Total knee arthroplasty. Hardware is intact and in anatomicposition. No periprosthetic lucency or fracture. Small effusion. Frontal evaluation of the right knee demonstrates total knee arthroplastyin anatomic alignment. IMPRESSION: Left total knee arthroplasty, no complication. us Donato Mccauley MD IMG XR LOWER EXTREMITY Final Res ult * Sedimentation rate (ESR) (08/30/2025 9:52 AM EDT) ESR 22 0 - 30 mm/h [facility] Comment:Erythrocyte Sediment ation Rate (ESR) reference range change effective 09/11/2019. Blood 08/30/2025 9:52 AM EDT 08/30/2025 9:58 AM EDT us Sven Wick MD LAB BLOOD BKR ORDERABLES Final R esult Performing Organization Address [facility] Co de Phone Number [facility] [address] [place] [phone] * C-Reactive Protein (08/30/2025 9:52 AM EDT) C REACTIVE PROTEIN 2.5 0.0 - 10.0 mg/L [facility] Comment: Blood 08/30/2025 9:52 AM EDT 08/30/2025 9:58 AM EDT us Sven Wick MD LAB BLOOD BKR ORDERABLES Final R esult Performing Organization Address [facility] Co de Phone Number [facility] [address] [place] [phone] * XR Lower Extremity Outside (No Interpretation) (07/21/2025 12:10 AM EDT) Narrative SYSTEMGENERATED, DOCUMENTATION - 08/08/2025 11:16 AM EDT This study is for PACS storage only and not for interpretation. us Unknown Unknown MD IMG OUTSIDE IMAGING W/OUT INT ERPRETATION Final Result * XR Lower Extremity Outside (No Interpretation) (07/21/2025 12:05 AM EDT) Narrative SYSTEMGENERATED, DOCUMENTATION - 08/08/2025 11:16 AM EDT This study is for PACS storage only and not for interpretation. us Unknown Unknown MD IMG OUTSIDE IMAGING W/OUT INT ERPRETATION Final Result * CT Lower Extremity Outside (No Interpretation) (07/21/2025 12:00 AM EDT) Narrative SYSTEMGENERATED, DOCUMENTATION - 08/08/2025 11:15 AM EDT This study is for PACS storage only and not for interpretation. us Unknown Unknown MD IMG OUTSIDE IMAGING W/OUT INT ERPRETATION Final Result from Last 3 Months Insurance [place] PART [place] [id number] [facility] MEDICARE REPLACEMENT MEDICARE PART A & B [facility] MEDICARE REPLACEMENT MEDICARE PART A & B [facility] MEDIC[facility] PART A & B [facility] MEDICARE PART A & B [facility] MEDICARE REPLACEMENT MEDICARE PART A & B [facility] MEDICARE PART A & B [facility] MEDICARE REPLACEMENT MEDICARE PART A & B [facility] MEDICARE REPLACEMENT MEDICARE PART A & B [facility] MEDICARE REPLACEMENT Care Teams Assembler Musical Equipment Relationship Specialty Start Date End Date [facility] [address] [address] PCP - General Family Medicine 08/07/25 Additional Source Comments The information contained in this document represents components of the legal health record. It is not the complete legal health record.[facility]
--- OUTSIDE RECORDS SUMMARY | 2025-10-16 15:46 | XMS_ITS | Clinical Summary ---
Author Organization [facility] Address [address] [id number] Care Team Providers Care Furnace Tapper Name Role Phone Brock Shaw DO Primary Care Provider [phone] Allergies Active Allergy Reactions Criticality Noted Date [...] Screening 11/01/2024 Depression Screening and Follow-Up 11/01/2024 Fall Risk Screening 11/01/2024 Health Care Proxy Review 11/01/2024 Social Drivers of Health Annual Screening 11/01/2024 Influenza Vaccine (#1) 2025 , 08/18/2022, 07/29/2021, Additional history exists COVID-19 Vaccine ( season) 2025 10/06/2023, 08/18/2022, 04/22/2022, Additional history exists Cervical Cancer Screening 02/01/2026 Pap Smear 02/01/2026 02/01/2023 Pneumococcal Vaccine: 50+ Years (3 of 3 - PCV20 or PCV21) 08/10/2026 08/10/2021, 07/22/2015 DTaP,Tdap,and Td Vaccines (2 - Td or Tdap) 06/21/2029 06/21/2019 RSV Vaccine (60+ years old and patients) Completed 10/06/2023 Hepatitis B Vaccines Aged Out No long er eligible based on patient's age to complete this topic Insurance Care Teams Furnace Tapper Relationship Specialty Start Date End Date Brock Shaw DO [address] [place] [address] PCP - General 12/27/23
== END 2025-10-16 11:55 | disposition home or self-care (01) ==
LOC: HO.LAB 11:54
PROVIDERS: PCP Family Medicine; Visit Provider Student in an Organized Health Care Education/Training Program
DX: Z51.81 Encounter for therapeutic drug level monitoring (principal); Z11.1 Encounter for screening for respiratory tuberculosis; M06.00 Rheumatoid arthritis without rheumatoid factor, unspecified site; Z79.899 Other long term (current) drug therapy; Z79.69 Long term (current) use of other immunomodulators and immunosuppressants
CPT/HCPCS: 36415; 80053; 80061; 85025; 85652; 86140; 86481

== ENCOUNTER 2025-10-18 08:17 | Outpatient (AMB) | payer MEDICAID, SELFPAY ==
--- NOTE | 2025-10-18 08:24 | A.OFFVIS_ITS ---
Vital Signs 10/18/25 08:40 Height 5 ft 3 in Weight 239 lb 3.225 oz BMI 42.4 BP 134/80 Blood Pressure Location Lt brachial Position Sitting Pulse 93 Pulse Source Pulse Oximeter Pulse Oximetry (%) 96 Oxygen Delivery Method Room Air Intake Visit Reasons: f/u RA Intake Note: Patient presents today for RA follow up and test results. Entry Level Chemist Required: No Information Interpreted: non-clinical & clinical Accompanied by: Self / Same As Patient Allergies adhesive tape Adverse Reaction (Unknown, Verified 10/18/25 08:37) Rash lactose Adverse Reaction (Unknown, Verified 10/18/25 08:37) Unknown Sulfa (Sulfonamide Antibiotics) Adverse Reaction (Unknown, Verified 10/18/25 08:37) Unknown Medication List - Last Reconciled 10/18/25 by Orquidea David MD [arm brace 16 brace Wear nightly and as much as possible throughout the day] diltiazem HCl CD 240 mg PO DAILY finger splint wear nightly & as much as possible throughout the day fluoxetine 80 mg PO DAILY gabapentin 300 mg PO QID hydrochlorothiazide 25 mg PO DAILY lorazepam 0.5 mg PO DAILY metoprolol succinate ER 12.5 mg PO DAILY omeprazole 20 mg PO DAILY PRN oxybutynin chloride 2 tablets in AM, 2 tablet in PM orally; tocilizumab-aazg (Tyenne Autoinjector) 162 mg (0.9 mL) subcut Q2W tramadol 50 - 100 mg PO Q6H PRN walker As directed HPI Comments Details: Patient is a 64 y.o. 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 - Her inflammatory markers have since improved, decreasing from 5.9 to 1.3. - Currently, her main symptoms are hand weakness and pain. - In July, she experienced a left knee dislocation, which had happened intermittently before but this time was not self-reducible and required an ambulance. - This is her previously replaced knee. - She was evaluated by a surgeon who noted that while the joint itself is in good condition, the cartilage is worn, and recommended a total knee replacement with a hinged joint. - The patient is delaying this surgery as the knee has not dislocated since. - The patient also reports a recent fall where she tripped and landed on her hands and left knee, resulting in bruising. - She notes she has poor leg strength. - She reports a new issue with her elbow that started this year, which feels like it's going to go out when she leans on her hand. Rheumatologic History: Seronegative Onset around 2005. started on methotrexate, hydroxychlooquine and eventually leflunomide added. Humira added early 2021, hydroxychloroquine stopped. Humira stopped 06/2022. Hx bilateral TKR &THR [id number]/2022 hosp with resp failure, possible due to mtx , treated with IV and PO corticosteroids. leflunomide restarted. 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 Hypertension CKD (chronic kidney disease) Surgical History History of carpal tunnel surgery Status post fusion of wrist H/O bilateral hip replacements History of total knee replacement (TKR) Family History Mother Alzheimer's dementia with mood disturbance Hypertension Breast cancer Father Hypertension Type 2 diabetes mellitus Stroke Myocardial infarction Kidney disease Brother Colon cancer Sister Lymphoma Social History Alcohol intake: current Alcohol intake frequency: does not drink Patient Tobacco Use Status: Former Tobacco user Second Hand Smoke Exposure: No Substance Use Type: Marijuana Review of Systems Narrative Review of Systems Constitutional: Denies fever, chills, weight loss ENT: Denies vision changes, eye pain or eye redness, dental caries, dry mouth GI: Denies nausea, vomiting, diarrhea, abdominal pain, change in BM Pulm: Denies SOB, BENAVIDES, hemoptysis, wheezing Cards: Denies chest pain, palpitations Skin: Denies Raynaud's, rash, nail changes, photosensitivity, MEDIA TRAFFIC MANAGER: Denies headaches, weakness, paresthesias, recurrent falls MSK: as per HPI All other systems reviewed and are unremarkable except noted above Physical Exam Exam Exam: Vital signs reviewed Physical Examination CONSTITUITIONAL Patient alert and cooperative. Well appearing and in no apparent painful distress MSK Hands * Right Hand: Unable to make a fist. Prominent synovial hypertrophy noted to the 2nd, 3rd and 4th MCPs with ulnar deviation. No obvious synovitis * Left Hand: Able to make a fist. No swelling or tenderness to palpation of these joints. No deformities noted. Wrists * Right Wrist: Fixed wrist * Left Wrist: Decreased ROM. Synovial hypertrophy. No TTP Elbows * Right Elbow: No swelling or TTP of the elbow. cystic collection at the lateral aspect of the elbow, non tender. No TTP of the medial and lateral epicondyles * Left Elbow: No swelling or TTP. No TTP of the medial and lateral epicondyles Shoulders * Right shoulder: Full ROM. No swelling noted. No TTP of the AC joint, subacromial bursa or posterior shoulder * Left shoulder: Full ROM. No swelling noted. No TTP of the AC joint, subacromial bursa or posterior shoulder Knees * Knee exam deferred * Surgical scar noted anteriorly bilaterally Ankles * Right ankle: Good ankle dorsiflexion and plantar flexion. No swelling. No TTP of the ankle joint * Left ankle: Good ankle dorsiflexion and plantar flexion. No swelling. No TTP of the ankle joint Feet * Right foot: Negative squeeze test * Left foot: Negative squeeze test Vital Signs: Last Vital Signs Pulse 93 10/18/25 08:40 BP 134/80 10/18/25 08:40 Pulse Ox 96 10/18/25 08:40 Oxygen Delivery Method Room Air 10/18/25 08:40 BMI result Body Mass Index 42.4 Results Reviewed Results Reviewed: Laboratory Tests 06/05/25 10/16/25 07:50 12:06 WBC 11.0 H RBC 4.73 Hgb 13.2 Hct 41.3 Plt Count 318 ESR 72 H 71 H Sodium 138 Potassium 4.6 Chloride 103 Carbon Dioxide 28 BUN 29 H Creatinine 1.31 AST 28 ALT 14 C-Reactive Protein 5.91 H 1.32 H Triglycerides 191 H Cholesterol 236 H LDL Cholesterol, Calc 154 H HDL Cholesterol 44 Laboratory Tests 02/23/23 06/05/25 10/16/25 12:14 07:50 12:06 Hepatitis A IgM Ab Nonreactive Hep Bs Antigen Negative Hep Bs Antibody NONREACTIVE Hep B Core Total Ab Nonreactive Hepatitis C Ab (EIA) Nonreactive TB Test (T-Spot) Com Negative Pending XR Left Knee 07/2025 Findings: Posterior dislocation of the tibia relative to the femur. Total knee arthroplasty hardware present. No acute fractures demonstrated. No suprapatellar joint effusion. No prepatellar soft tissue swelling. Normal bone mineralization. No unusual radiopaque foreign body. Impression: 1. Posterior dislocation of the knee. XR Left Knee 07/2025 (post reduction) Findings: Successful reduction of the knee joint Total knee arthroplasty intact Moderate suprapatellar joint effusion. Soft tissue swelling. No unusual radiopaque foreign body. Impression: 1. Successful reduction of the knee joint. Moderate suprapatellar joint effusion. Assessment & Plan Assessment & Plan (1) Seronegative rheumatoid arthritis: Comment: Onset around 2005. started on methotrexate, hydroxychlooquine and eventually leflunomide added. Humira added early 2021, hydroxychloroquine stopped. Humira stopped 06/2022. Hx bilateral TKR &THR [id number]/2022 hosp with resp failure, possible due to mtx , treated with IV and PO corticosteroids. leflunomide restarted. 08/2022 Code(s): M06.00 - Rheumatoid arthritis without rheumatoid factor, unspecified site Category: Medical Plan: #Seronegative Erosive and deforming RA Patient is a 64-year-old female with seronegative erosive and deforming rheumatoid arthritis here today for follow up. No evidence of active synovitis on examination. Inflammatory markers improved Plan - Tyenne 162mg SC every 2 weeks - RTC 4 months - Labs before visit: CBC, CMP, ESR, CRP (2) Mass of left elbow: Code(s): R22.32 - Localized swelling, mass and lump, left upper limb Plan: #Left elbow mass Feels cystic in nature Will check US Plan - US left mass (3) Osteoarthritis of knees, bilateral: Code(s): M17.0 - Bilateral primary osteoarthritis of knee Qualifiers: Osteoarthritis type: primary Qualified Code(s): M17.0 - Bilateral primary osteoarthritis of knee Plan: #Bilateral Knee OA Patient with bilateral knee osteoarthritis status post bilateral knee replacement. Course now complicated by posterior dislocation Continue follow up with ortho (4) Encounter for monitoring tocilizumab therapy: Code(s): Z51.81 - Encounter for therapeutic drug level monitoring; Z79.620 - FDC (current) use of immunosuppressive biologic Plan: #Long-term Use of IL 6 Inhibitors: Tocilizumab/Sarilumab Discussed the risks and benefits of IL6 inhibitors with the management of this patient's rheumatic condition. Benefits include decreased pain, improved mortality, improved quality of life Risks include LFT abnormalities, elevated triglycerides, GI perforations Contraindicated in a patient with history of diverticulitis Monitoring: CBC, CMP, triglycerides Plan I spent 30 minutes reviewing the record and labs, taking a history, examining the patient, discussing the treatment plan, ordering diagnostic work up and documenting in the medical record Orders: Orders OT Evaluation and Treatment Today M06.00 - Rheumatoid arthritis without rheumatoid factor, unspecified site C Reactive Protein 4 Months Z79.899 - Other assessment technician (current) drug therapy Erythrocyte Sedimentation Rate 4 Months Z79.899 - Other assessment technician (current) drug therapy US Extremity Nonvas Comp JT LT Today R22.32 - Localized swelling, mass and lump, left upper limb Complete Blood Count Auto Diff 4 Months Z79.899 - Other assessment technician (current) drug therapy Comprehensive Met. Panel 4 Months Z79.899 - Other longterm (current) drug therapy Referrals Hand Surgery Referral M06.00 - Rheumatoid arthritis without rheumatoid factor, unspecified site Medications: Refilled tocilizumab-aazg (Tyenne Autoinjector) 162 mg (0.9 mL) subcut Q2W 1.8 mL 5RF M06.00 - Rheumatoid arthritis without rheumatoid factor, unspecified site Coding Level of Care Code Est Pt Level 4 (61079) Add On Problem Visit Only Diagnoses Seronegative rheumatoid arthritis M06.00 Mass of left elbow R22.32 Primary osteoarthritis of both knees M17.0 Osteoarthritis type: primary Encounter for monitoring tocilizumab therapy Z51.81; Z79.620
--- OUTSIDE RECORDS SUMMARY | 2025-10-18 08:31 | XMS_ITS | Clinical Summary ---
Author Organization [facility] Address [address] [place] [address] Phone Care Team Providers Care Dobby Looms Pegger Name Role Phone Mi Puentes MD Primary Care Provider [phone] Allergies Active Allergy Reactions Criticality Noted Date [...] topic Insurance Medicare Medicaid [place] Care Teams Dobby Looms Pegger Relationship Specialty Start Date End Date [facility] [place] [place] [address] PCP - General Family Medicine 07/30/21
--- OUTSIDE RECORDS SUMMARY | 2025-10-18 08:31 | XMS_ITS | Clinical Summary ---
Author Organization [facility] Address [address] [id number] Care Team Providers Care Fast Food Services Manager Name Role Phone Brock Shaw DO Primary Care Provider [phone] Allergies Active Allergy Reactions Criticality Noted Date [...] to complete this topic Insurance Care Teams Fast Food Services Manager Relationship Specialty Start Date End Date Brock Shaw DO [address] [place] [address] PCP - General 12/27/23
[2025-10-18 08:40] VITALS: BP 134/80; PULSE 93; O2SAT 96; BMI 42.4
== END 2025-10-18 09:08 | disposition home or self-care (01) ==
LOC: HO.RHES 08:18
PROVIDERS: PCP Family Medicine; Visit Provider Student in an Organized Health Care Education/Training Program
DX: M06.00 Rheumatoid arthritis without rheumatoid factor, unspecified site (principal); R22.32 Localized swelling, mass and lump, left upper limb; M17.0 Bilateral primary osteoarthritis of knee; Z51.81 Encounter for therapeutic drug level monitoring; Z79.620 Long term (current) use of immunosuppressive biologic
CPT/HCPCS: 99214

== ENCOUNTER → 2025-10-18 08:17 | Outpatient (BNVA) | payer MEDICAID, SELFPAY | PROVIDERS: PCP Family Medicine; Visit Provider Student in an Organized Health Care Education/Training Program | DX: M06.00 Rheumatoid arthritis without rheumatoid factor, unspecified site (principal); R22.32 Localized swelling, mass and lump, left upper limb; M17.0 Bilateral primary osteoarthritis of knee; Z51.81 Encounter for therapeutic drug level monitoring; Z79.620 Long term (current) use of immunosuppressive biologic; Z79.899 Other long term (current) drug therapy | CPT/HCPCS: 99212 ==